=== PATIENT | male | born 1950 | race Caucasian/White ===

== ENCOUNTER 2020-11-23 13:48 | Emergency (ER) | payer MEDICARE ==
[2020-11-23 13:57] VITALS: PULSE 66; RESP 18
--- NOTE | 2020-11-23 14:23 | ED ---
General Adult HPI - General Chief complaint: Extremity Injury, Lower Stated complaint: Leg Pain Time Seen by Provider: 11/23/20 14:05 Source: patient, RN notes reviewed Mode of arrival: ambulatory Limitations: no limitations - History of Present Illness Initial comments: 70-year-old male with a past medical history of hypertension, back pain presents to the emergency room for a chief complaint of left left leg pain. Patient states he had pain in the anterior aspect of the left thigh for the past 3 weeks on and off. States it has now moved to the anterior aspect of the left thigh and into the left groin. Patient denies any injuries. States it is painful to move. Patient states he does have sciatica but this does not feel similar. He denies noticing any swelling or redness. He spoke with a nurse on the phone who recommended he have an ultrasound to rule out blood clot.Patient has no other complaints at this time including shortness of breath, chest pain, abdominal pain, nausea or vomiting, headache, or visual changes. - Related Data Allergies Allergy/AdvReac Type Severity Reaction Status Date / Time No Known Allergies Allergy Verified 11/23/20 13:52 Review of Systems ROS Statement: Those systems with pertinent positive or pertinent negative responses have been documented in the HPI. ROS Other: All systems not noted in ROS Statement are negative. Past Medical History Past Medical History: Hypertension Additional Past Medical History / Comment(s): back pain History of Any Multi-Drug Resistant Organisms: None Reported Past Surgical History: Pacemaker Past Psychological History: Anxiety Smoking Status: Former smoker Past Alcohol Use History: None Reported Past Drug Use History: None Reported General Exam Limitations: no limitations General appearance: alert, in no apparent distress Head exam: Present: atraumatic Eye exam: Present: normal appearance, PERRL, EOMI. Absent: scleral icterus, conjunctival injection, periorbital swelling ENT exam: Present: normal exam, mucous membranes moist Neck exam: Present: normal inspection. Absent: tenderness, meningismus, lymphadenopathy Respiratory exam: Present: normal lung sounds bilaterally Cardiovascular Exam: Present: regular rate, normal rhythm, normal heart sounds. Absent: systolic murmur, diastolic murmur, rubs, gallop, clicks GI/Abdominal exam: Present: soft, normal bowel sounds. Absent: distended, tenderness, guarding, rebound, rigid, hernia (No mass of the left groin) Extremities exam: Present: full ROM (Full range of motion of the left leg.), normal capillary refill (Capillary refill less than 2 seconds, DP pulse 2+.). Absent: tenderness (No tenderness in the left thigh or groin.), joint swelling (No edema noted throughout the left leg.), calf tenderness (No calf tenderness erythema or edema. Negative Homans sign.) Course Vital Signs 11/23/20 11/23/20 13:53 15:35 Temperature 98.4 F 99.1 F Pulse Rate 66 66 Respiratory 18 18 Rate Blood Pressure 123/68 107/85 O2 Sat by Pulse 98 97 Oximetry Medical Decision Making - Medical Decision Making Patient presents for left thigh pain that now extends to the groin area. No abdominal pain. No evidence of hernia. Neurovascular status intact left lower extremity.X-ray shows no fracture. There is mild osteoarthritis of the left knee. Ultrasound shows no evidence of DVT. There is a left groin lymph node measuring 1.7 x 0.8 x 0.7 cm. at this time I recommend patient follows up with h is doctor as he could be having tender lymphadenopathy. He has no fevers or evidence of infection. No dysuria. He will return here for any worsening symptoms. Disposition Clinical Impression: Lymphadenopathy Disposition: HOME SELF-CARE Condition: Good Instructions (If sedation given, give patient instructions): Lymphadenopathy (ED) Additional Instructions: Please follow-up with your doctor to ensure that the lymph node is improving. If you have any worsening symptoms such as fevers or signs of infection return to the emergency room. Is patient prescribed a controlled substance at d/c from ED?: No Referrals: Nat Gaffney DO [Primary Care Provider] - 1-2 days Time of Disposition: 15:52
--- NOTE | 2020-11-23 14:37 | XR ---
EXAMINATION TYPE: XR femur LT DATE OF EXAM: 11/23/2020 COMPARISON: NONE HISTORY: Leg pain TECHNIQUE: 4 views FINDINGS: Hip joint is intact. There is some narrowing of the medial joint space of the knee with spu r formation. I see no fracture nor dislocation. Sacroiliac joint is intact. IMPRESSION: No fracture. Mild osteoarthritis in the left knee.
[2020-11-23 15:36] VITALS: BP 107/85; TEMP 99.1
--- NOTE | 2020-11-23 15:47 | US ---
EXAMINATION TYPE: US venous doppler duplex LE LT DATE OF EXAM: 11/23/2020 3:04 PM COMPARISON: NONE CLINICAL HISTORY: pain. Left thigh and groin pain SIDE PERFORMED: Left TECHNIQUE: The lower extremity deep venous system is examined utilizing real time linear array sonog joi with graded compression, doppler sonography and color-flow sonography. VESSELS IMAGED: Common Femoral Vein Deep Femoral Vein Greater Saphenous Vein * Femoral Vein Popliteal Vein Small Saphenous Vein * Proximal Calf Veins (* superficial vessels) Left Leg: Negative for DVT Let Groin lymph node was seen by US = 1.7 x 0.8 x 0.7cm. IMPRESSION: No evidence of deep vein thrombosis in the left leg.
== END 2020-11-23 16:06 | disposition home or self-care (01) ==
LOC: EC 13:48
DX: R59.1 Generalized enlarged lymph nodes (principal); M17.12 Unilateral primary osteoarthritis, left knee; M79.652 Pain in left thigh; Z87.891 Personal history of nicotine dependence
CPT/HCPCS: 99284

== ENCOUNTER → 2020-12-18 | Outpatient (CLI) | payer MEDICARE ==
--- NOTE | 2020-12-19 07:32 | US ---
EXAMINATION TYPE: US groin LT DATE OF EXAM: 12/18/2020 COMPARISON: NONE CLINICAL HISTORY: R59.0 Localized enlarged lymph nodes. enlarged lymph nodes left groin. Pain left gr oin Scanned left groin, within area of concern, lymph node noted = 2.0 x 0.7 x 0.8cm IMPRESSION: Left inguinal lymph node. Otherwise unremarkable study.
== END | disposition home or self-care (01) ==
LOC: RADUSWWP 16:40
PROVIDERS: ATTEND Family Medicine
DX: R59.0 Localized enlarged lymph nodes (principal)

== ENCOUNTER 2021-01-05 09:19 | Emergency (ER) | payer MEDICARE ==
[2021-01-05 09:25] VITALS: BP 130/76; PULSE 71; RESP 18; TEMP 98.4
--- NOTE | 2021-01-05 10:13 | ED ---
Extremity Problem HPI - General Chief complaint: Extremity Problem,Nontraumatic Stated complaint: L Leg Pain Time Seen by Provider: 01/05/21 09:25 Source: patient Mode of arrival: ambulatory Limitations: no limitations - History of Present Illness Initial comments: Patient is a 70-year-old male presenting to emergency Department with complaints of left thigh pain that has been increasing over the past week. Patient states he's had this pain has been intermittent for the past month. He has seen his PCP for this, he is also evaluated in the ER recently for same issue, he received an ultrasound of the left leg which revealed no evidence of DVT, x-ray of his femur showed no acute process. Patient then followed-up with Dr. Sutton and has an appointment this week for an ultrasound of an enlarged lymph node in his left groin. Patient denies any previous surgeries of his low back, left hip or left leg. He has had arthroscopic surgery of his left knee. Patient states the pain is worse when he standing up straight, has some radiation from his left hip down to the left anterior thigh. He has no back pain right now no saddle paresthesias, no bowel or bladder incontinence. Patient has no fever or chills. He has no further complaints. - Related Data Home Medications Medication Instructions Recorded Confirmed ALPRAZolam [Xanax] 0.125 - 0.25 mg PO TID PRN 01/05/21 01/05/21 Aspirin EC [Ecotrin Low Dose] 81 mg PO DAILY 01/05/21 01/05/21 Atenolol [Tenormin] 25 mg PO BID 01/05/21 01/05/21 Atorvastatin [Lipitor] 20 mg PO HS 01/05/21 01/05/21 Cholecalciferol [Vitamin D3 (25 25 mcg PO DAILY 01/05/21 01/05/21 Mcg = 1000 Iu)] L.acidoph,Paracasei, B.lactis 1 cap PO DAILY 01/05/21 01/05/21 [Probiotic] Multivitamin W/B-Complex 1 tab PO DAILY 01/05/21 01/05/21 Papaya [Papaya Enzyme] 3 tab PO AC-BID PRN 01/05/21 01/05/21 amLODIPine [Norvasc] 5 mg PO HS 01/05/21 01/05/21 Previous Rx's Medication Instructions Recorded predniSONE 50 mg PO DAILY #5 tab 01/05/21 Allergies Allergy/AdvReac Type Severity Reaction Status Date / Time No Known Allergies Allergy Verified 01/05/21 10:25 Review of Systems ROS Statement: Those systems with pertinent positive or pertinent negative responses have been documented in the HPI. ROS Other: All systems not noted in ROS Statement are negative. Past Medical History Past Medical History: Hypertension Additional Past Medical History / Comment(s): back pain, bradycardia History of Any Multi-Drug Resistant Organisms: None Reported Past Surgical History: Pacemaker Past Psychological History: Anxiety Smoking Status: Former smoker Past Alcohol Use History: None Reported Past Drug Use History: None Reported General Exam - General Exam Comments Initial Comments: GENERAL: Patient is well-developed and well-nourished. Patient is nontoxic and in no acute distress. HEAD: Atraumatic, normocephalic. EYES: Pupils equal round and reactive to light, extraocular movements intact, sclera anicteric, conjunctiva are normal. Eyelids were unremarkable. ENT: TMs normal, nares patent, oropharynx clear without exudates. Moist mucous membranes. NECK: Normal range of motion, supple without lymphadenopathy or JVD. LUNGS: Unlabored respirations. Breath sounds clear to auscultation bilaterally and equal. No wheezes rales or rhonchi. HEART: Regular rate and rhythm without murmurs, rubs or gallops. ABDOMEN: Soft, nontender, normoactive bowel sounds. No guarding, no rebound. No masses appreciated. : Deferred MUSCULOSKELETAL: No pain to palpation of the left anterior, lateral hip. He has full left hip range of motion. Strength is 5 out of 5 lower extremity bilaterally. Normal extremities with adequate strength and normal range of motion, no pitting or edema. No clubbing or cyanosis. Patient has no pain with palpation of the lumbar spine, he has full trunk range of motion, normal gait. NEUROLOGICAL: Patient is alert and oriented x 3. Motor and sensory are also intact. Cranial nerves II through XII grossly intact. Symmetrical smile. Normal speech, normal gait. PSYCH: Normal mood, normal affect. SKIN: Warm, Dry, normal turgor, no rashes or lesions noted. Limitations: no limitations Course Vital Signs 01/05/21 09:22 Temperature 98.4 F Pulse Rate 71 Respiratory 18 Rate Blood Pressure 130/76 O2 Sat by Pulse 97 Oximetry Medical Decision Making - Medical Decision Making Patient 70-year-old male here for left upper thigh anterior pain has been in termittent for the past month, worse over the past week. No injuries or falls. No previous surgeries of the back or left hip. He has had recent negative left leg ultrasound, does have a left enlarged lymph node in the groin. Negative femur x-ray during last visit. X-rays today of the lumbar spine, left hip showed no acute process, mild arthritic changes. Patient has been pain-free here in the ER. Discussed with patient this could be coming from a pinched nerve in his back. I did recommend a course of steroids to come down and inflammation. He may also take Tylenol as needed. Patient will also follow up with health care law specialist. Patient is stable for discharge. Patient is in agreement with this plan of care. Return parameters were discussed with the patient and they verbalized understanding. Case discussed with Dr. Velazco. Disposition Clinical Impression: Left thigh pain Disposition: HOME SELF-CARE Condition: Stable Instructions (If sedation given, give patient instructions): Leg Pain (ED) Additional Instructions: Please return to the Emergency Department if symptoms worsen or any other concerns. Take medication as prescribed. May take Tylenol for pain as well. Follow-up with ortho as discussed. Prescriptions: predniSONE 50 mg PO DAILY #5 tab Is patient prescribed a controlled substance at d/c from ED?: No Referrals: Nat Gaffney DO [Primary Care Provider] - 1-2 days
--- NOTE | 2021-01-05 11:15 | XR ---
EXAMINATION TYPE: XR lumbar spine 2 or 3V DATE OF EXAM: 01/05/2021 COMPARISON: None HISTORY: Pain TECHNIQUE: Three-view lumbar spine FINDINGS: There are 5 lumbar-type vertebral bodies. The pedicles are intact. There is narrowing of di sc height L4-5 L5-S1. Remaining disc heights are preserved. Vertebral body heights are preserved. Ali gnment is normal. T12 ribs are rudimentary. IMPRESSION: 1. Degenerative disc changes lower lumbar spine
--- NOTE | 2021-01-05 11:16 | XR ---
EXAMINATION TYPE: XR Hip Complete LT DATE OF EXAM: 01/05/2021 COMPARISON: None HISTORY: Pain TECHNIQUE: 2 view left hip FINDINGS: Femoral head articulates with the acetabulum. Joint spaces preserved. No acute fracture or dislocation is evident. IMPRESSION: 1. Normal 2 view left hip
== END 2021-01-05 10:53 | disposition home or self-care (01) ==
LOC: EC 09:19
DX: M79.652 Pain in left thigh (principal); R59.0 Localized enlarged lymph nodes; M19.90 Unspecified osteoarthritis, unspecified site; I10 Essential (primary) hypertension; F41.9 Anxiety disorder, unspecified; Z79.899 Other long term (current) drug therapy; Z79.82 Long term (current) use of aspirin; Z95.0 Presence of cardiac pacemaker; Z87.891 Personal history of nicotine dependence
CPT/HCPCS: 72100; 73502; 99283

== ENCOUNTER → 2021-01-08 | Outpatient (CLI) | payer MEDICARE ==
--- NOTE | 2021-01-08 16:00 | US ---
EXAMINATION TYPE: US groin LT DATE OF EXAM: 01/08/2021 COMPARISON: US 12/18/20 CLINICAL HISTORY: 70-year-old male R59.1 Lymphadenopathy left side. TECHNIQUE: Targeted ultrasound along the left inguinal region at the site of patient's pain. FINDINGS: Special Librarian notes: Area of pain demonstrates a lymph node = 1.7 x 0.8 x 0.8 cm. Area seen previously on ultrasound measu ring 2.0 x 0.8 x 0.7 cm. IMPRESSION: Painful left inguinal region showing a prominent but nonenlarged 1.7 x 0.8 cm lymph node (stable to s lightly smaller from 12/18/2020 where it measured 2.0 x 0.8 cm).
== END | disposition home or self-care (01) ==
LOC: RADUSWWP 14:34
PROVIDERS: ATTEND Surgery
DX: R93.89 Abnormal findings on diagnostic imaging of other specified body structures (principal); R59.1 Generalized enlarged lymph nodes

== ENCOUNTER → 2021-05-27 | Outpatient (CLI) | payer MEDICARE | END | disposition home or self-care (01) | LOC: RADUSWWP 14:46 | PROVIDERS: ATTEND Surgery | DX: R59.1 Generalized enlarged lymph nodes (principal) ==

== ENCOUNTER 2021-06-18 12:28 | Day surgery (SDC) | payer MEDICARE ==
[2021-06-18 13:19] VITALS: TEMP 98.6
[2021-06-18 13:37] VITALS: PULSE 60
--- NOTE | 2021-06-18 14:10 | US ---
ULTRASOUND GUIDED FNA INGUINAL LYMPH NODE BIOPSY: CLINICAL HISTORY: Left groin lymph node FINDINGS: The procedure was explained to the patient. The risks, complications, benefits and alternatives were discussed and any questions were answered. Informed consent was obtained. Patient was placed supin e on the ultrasound table and prepped and draped in the usual sterile fashion. Utilizing a 25 gauge needle, five passes were made into the left groin lymph node. Patient declined core biopsy Patient was stable throughout the procedure. Pathology is pending. All elements of maximal barrier technique were utilized. IMPRESSION: 1. Successful ultrasound guided FNA groin lymph node biopsy.
[2021-06-18 14:29] VITALS: BP 114/68; RESP 14
== END 2021-06-18 14:20 | disposition home or self-care (01) ==
LOC: RADPROMAIN 12:28
PROVIDERS: ATTEND Surgery
DX: R59.1 Generalized enlarged lymph nodes (principal)
CPT/HCPCS: 10005; 88173; 88305

== ENCOUNTER 2021-07-01 12:38 | Day surgery (SDC) | payer MEDICARE ==
[2021-07-01 13:33] VITALS: BP 114/65; PULSE 60; TEMP 97
--- NOTE | 2021-07-01 14:46 | US ---
ULTRASOUND GUIDED BIOPSY LEFT GROIN LYMPH NODE: CLINICAL HISTORY: Left groin lymph node FINDINGS: Preliminary imaging demonstrated that the lymph nodes in the left groin appear to be almost entirely fat echogenicity. The largest lymph nodes short axis measured only 5 mm. Patient wished to defer biop sy at this time as requested follow-up ultrasound. IMPRESSION: 1. Deferred biopsy of left groin lymph node.
== END 2021-07-01 14:15 | disposition home or self-care (01) ==
LOC: RADPROMAIN 12:38
PROVIDERS: ATTEND Surgery
DX: R59.0 Localized enlarged lymph nodes (principal)
CPT/HCPCS: 76536

== ENCOUNTER → 2022-07-07 | Outpatient (CLI) | payer MEDICARE ==
--- NOTE | 2022-07-07 12:50 | US ---
EXAMINATION TYPE: US groin RT DATE OF EXAM: 07/07/2022 COMPARISON: NONE CLINICAL HISTORY: 71-year-old male R59.1 Lymphadenopathy. Right groin Technique: Orthopedic Specialist notes: Scanned over the patient's right groin. FINDINGS: Normal-appearing, small lymph nodes. No abnormality seen by ultrasound. IMPRESSION: No discrete sonographic abnormality along the right inguinal region.
--- NOTE | 2022-07-07 12:51 | US ---
EXAMINATION TYPE: US groin LT DATE OF EXAM: 07/07/2022 COMPARISON: 11/2020 CLINICAL HISTORY: 71-year-old male R59.1 Lymphadenopathy. Left groin TECHNIQUE: Software Configuration Specialist notes: Scanned over the patient's left groin. FINDINGS: Normal-appearing, small lymph nodes. No abnormality seen by ultrasound. IMPRESSION: No discrete sonographic abnormality along the left inguinal region. Normal, small lymph nodes now pre sent.
== END | disposition home or self-care (01) ==
LOC: RADUSWWP 08:34
PROVIDERS: ATTEND Surgery
DX: R59.1 Generalized enlarged lymph nodes (principal)

== ENCOUNTER → 2023-02-24 | Outpatient (CLI) | payer MEDICARE ==
[2023-02-24 14:22] LABS: African American GFR (CKD) >90 (>60 ml/min/1.73 sqM); Blood Urea Nitrogen 13 mg/dL (9-20); Non-African American GFR(CKD) 88 (>60 ml/min/1.73 sqM)
--- NOTE | 2023-03-01 16:24 | CT ---
EXAMINATION TYPE: CT angio head DATE OF EXAM: 02/24/2023 COMPARISON: 06/02/2026 HISTORY: hx of cerebral aneurysm CT DLP: 1260.5 mGycm CONTRAST: CTA [place] with 3-D reconstruction is performed and without and with IV Contrast, patient i njected with 100 mL of Isovue 370. Contrast CTA of the [place] was performed 3-D reconstruction imaging obtained at a separate workstation. Vertebrobasilar system as well as intracranial portions of the internal carotid arterie s and their major tributaries are patent. Again noted is a stable 3 mm fusiform prominence to the jimi gin of the right posterior cerebral artery. 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 No evidence for additional left fusiform prominence. Please note MRI provides greater sensitivity and specificity. Visualized brain appears grossly unre markable. IMPRESSION: Again noted is a stable 3 mm fusiform prominence to the origin of the right posterior cer ebral artery.
== END | disposition home or self-care (01) ==
LOC: RADCTMAIN 13:25
PROVIDERS: ATTEND Neurological Surgery
DX: I67.1 Cerebral aneurysm, nonruptured (principal)
CPT/HCPCS: 82565; 84520; 70496; 36415; Q9967

== ENCOUNTER 2023-10-01 02:41 | Inpatient (IN) | payer MEDICARE ==
[2023-10-01 03:22] LABS: Basophils % (A) 0 %; Eosinophils # (A) 0.1 k/uL (0-0.7); Eosinophils % (A) 2 %; HCT 45.8 % (39.0-53.0); HGB 15.7 gm/dL (13.0-17.5); Lymphocytes # (A) 1.7 k/uL (1.0-4.8); Lymphocytes % (A) 32 %; MCHC 34.2 g/dL (31.0-37.0); MCV 99.3 fL (80.0-100.0); Mean Platelet Volume 8.4; Monocytes # (A) 0.5 k/uL (0-1.0); Monocytes % (A) 9 %; Neutrophils # (A) 2.9 k/uL (1.3-7.7); Neutrophils % (A) 54 %; Platelet Count 140 k/uL (150-450); RBC 4.62 m/uL (4.30-5.90); RDW 12.6 % (11.5-15.5); WBC 5.4 k/uL (3.8-10.6)
[2023-10-01 03:35] LABS: Partial Thromboplastin Time 29.6 sec (22.0-30.0)
[2023-10-01 03:42] LABS: ALT 36 U/L (4-49); AST 42 U/L (17-59); African American GFR (CKD) >90 (>60 ml/min/1.73 sqM); Albumin 4.4 g/dL (3.5-5.0); Alkaline Phosphatase 57 U/L (38-126); Anion Gap 10 mmol/L; Blood Urea Nitrogen 17 mg/dL (9-20); Calcium 9.5 mg/dL (8.4-10.2); Carbon Dioxide 22 mmol/L (22-30); Chloride 103 mmol/L (98-107); Glucose 109 mg/dL (74-99); Magnesium 2.3 mg/dL (1.6-2.3); Non-African American GFR(CKD) >90 (>60 ml/min/1.73 sqM); Potassium 4.1 mmol/L (3.5-5.1); Sodium 135 mmol/L (137-145); Total Bilirubin 0.8 mg/dL (0.2-1.3); Total Protein 6.6 g/dL (6.3-8.2)
[2023-10-01 03:56] LABS: Appearance,Urine Clear (Clear); Bilirubin,Urine Negative (Negative); Blood,Urine Negative (Negative); Color,Urine Colorless; Glucose,Urine (UA) Negative (Negative); Ketones,Urine Trace (Negative); Leukocyte Esterase,Urine Negative (Negative); Nitrite,Urine Negative (Negative); Protein,Urine Negative (Negative); Specific Gravity,Urine 1.007 (1.001-1.035); Urobilinogen,Urine <2.0 mg/dL (<2.0)
[2023-10-01] MEDS ORDERED: LORazepam 2 MG/ML INJ IV STA (05:16)
--- NOTE | 2023-10-01 05:27 | XR ---
EXAM: XR Chest, 1 View CLINICAL HISTORY: ITS.REASON XR Reason: dysrhythmia TECHNIQUE: Frontal view of the chest. COMPARISON: No relevant prior studies available. FINDINGS: Lungs: Unremarkable. No consolidation. Pleural space: Unremarkable. No pneumothorax. Heart: Unremarkable. No cardiomegaly. Mediastinum: Unremarkable. Bones/joints: Unremarkable. Tubes, lines and devices: Left chest wall implanted cardiac device. IMPRESSION: No acute findings in the chest.
[2023-10-01] MEDS ORDERED: ALPRAZolam 0.25 MG TAB PO STA (05:37)
[2023-10-01] MEDS ORDERED: NITROGLYCERIN SL TABS 0.4 MG TAB SUBLINGUAL PRN (06:38)
[2023-10-01] MEDS: SODIUM CHLORIDE 0.9% 1,000 ML IV SCH ×3 (07:00→23:41)
--- NOTE | 2023-10-01 07:33 | ED ---
Arrhythmia/Palpitations HPI - General Chief Complaint: Arrhythmia/Palpitations Stated Complaint: Arrhythmia Time Seen by Provider: 10/01/23 03:03 Source: patient, EMS Mode of arrival: EMS - History of Present Illness Initial Comments: 's patient is a 72-year-old man with history of pacemaker, who presents evaluation for palpitations. The patient states that she has been feeling like his heart was beating irregularly and at times rapidly. He states that she had eaten some fruitcake prior to the onset of symptoms and thought that perhaps the increased sugar may have contributed. He checked his sugar and found that it was in the 70s which she states is low for him. patient denies having any chest pain, dyspnea, nausea or vomiting. He states that he did have some diaphoresis a couple of days before, and also had been having some palpitations then. MD Complaint: "skipped beats", irregular heart beat -: hour(s) Context: occurred during rest Arrhythmia History: pacemaker Associated Symptoms: denies other symptoms - Related Data Home Medications Medication Instructions Recorded Confirmed ALPRAZolam [Xanax] 0.125 - 0.25 mg PO TID PRN 01/05/21 10/01/23 Atorvastatin [Lipitor] 20 mg PO HS 01/05/21 10/01/23 L.acidoph,Paracasei, B.lactis 2 cap PO DAILY 01/05/21 10/01/23 [Probiotic] Papaya [Papaya Enzyme] 3 tab PO AC-BID PRN 01/05/21 10/01/23 Mv-Min/Folic/K1/Lycopen/Lutein 1 tab PO DAILY 10/01/23 10/01/23 [Centrum Silver Men Tablet] Previous Rx's Medication Instructions Recorded Amiodarone [Cordarone] 400 mg PO TID #180 tab 10/05/23 Mexiletine [Mexitil] 150 mg PO Q8HR #150 cap 10/05/23 Aspirin 81 mg PO HS tab 10/06/23 Hydrocortisone Oint 1 applic TOPICAL BID PRN each 10/06/23 [Hydrocortisone 1% Oint] Spironolactone [Aldactone] 25 mg PO DAILY #90 tab 10/06/23 atenoloL [Tenormin] 100 mg PO DAILY #180 tab 10/06/23 Allergies Allergy/AdvReac Type Severity Reaction Status Date / Time No Known Allergies Allergy Verified 10/01/23 12:31 Review of Systems ROS Statement: Those systems with pertinent positive or pertinent negative responses have been documented in the HPI. ROS Other: All systems not noted in ROS Statement are negative. Constitutional: Denies: fever, chills Respiratory: Denies: cough, dyspnea Cardiovascular: Reports: palpitations. Denies: chest pain, edema, syncope Gastrointestinal: Denies: abdominal pain, nausea, vomiting, diarrhea Genitourinary: Denies: dysuria, hematuria Musculoskeletal: Denies: back pain Skin: Denies: rash Neurological: Denies: headache, weakness Psychiatric: Reports: anxiety Past Medical History Past Medical History: Cancer, Hyperlipidemia, Hypertension Additional Past Medical History / Comment(s): back/neck pain with herniated discs, bradycardia, basal cell carcinoma removed from nose in June 2020, right groin enlarged lymph nodes History of Any Multi-Drug Resistant Organisms: None Reported Past Surgical History: Orthopedic Surgery, Pacemaker Additional Past Surgical History / Comment(s): left knee surgery times 2 Past Anesthesia/Blood Transfusion Reactions: No Reported Reaction Type of Cardiac Device: Permanent Pacemaker Device Placement Date:: 09/21/2019 Past Psychological History: Anxiety Smoking Status: Former smoker Past Alcohol Use History: Rare Past Drug Use History: None Reported - Past Family History Father Family Medical History: Cancer, Coronary Artery Disease (CAD) Additional Family Medical History / Comment(s): lung cancer Mother Family Medical History: Cancer Additional Family Medical History / Comment(s): bladder cancer General Exam General appearance: alert, in no apparent distress Head exam: Present: atraumatic, normocephalic Eye exam: Present: normal appearance. Absent: scleral icterus, conjunctival injection Neck exam: Present: normal inspection Respiratory exam: Present: normal lung sounds bilaterally. Absent: respiratory distress, wheezes, rales, rhonchi, stridor Cardiovascular Exam: Present: irregular rhythm, normal heart sounds. Absent: systolic murmur, diastolic murmur, rubs, gallop GI/Abdominal exam: Present: soft. Absent: distended, tenderness, guarding, r ebound, rigid, mass Extremities exam: Present: normal inspection, normal capillary refill. Absent: pedal edema, calf tenderness Back exam: Present: normal inspection. Absent: CVA tenderness (R), CVA tenderness (L) Neurological exam: Present: alert Psychiatric exam: Present: anxious Skin exam: Present: warm, dry, intact, normal color. Absent: rash Course Vital Signs 10/01/23 10/01/23 10/01/23 02:43 03:00 03:30 Temperature 97.8 F Pulse Rate 90 85 82 Respiratory 19 19 18 Rate Blood Pressure 139/78 139/78 125/94 O2 Sat by Pulse 100 Oximetry 10/01/23 10/01/23 10/01/23 04:00 04:30 05:00 Temperature Pulse Rate 80 84 82 Respiratory 19 17 20 Rate Blood Pressure 112/71 120/76 137/83 O2 Sat by Pulse 99 Oximetry 10/01/23 10/01/23 10/01/23 05:20 05:30 05:40 Temperature Pulse Rate 68 70 71 Respiratory 17 14 12 Rate Blood Pressure 114/83 114/83 123/70 O2 Sat by Pulse 100 99 98 Oximetry 10/01/23 10/01/23 10/01/23 05:45 05:50 06:00 Temperature Pulse Rate 70 81 69 Respiratory 19 29 H 9 L Rate Blood Pressure 129/72 129/72 129/72 O2 Sat by Pulse 99 97 99 Oximetry 10/01/23 10/01/23 10/01/23 06:10 08:00 08:41 Temperature Pulse Rate 61 57 L Respiratory 11 L 18 18 Rate Blood Pressure 121/69 107/64 110/64 O2 Sat by Pulse 99 99 99 Oximetry Medical Decision Making - Medical Decision Making The patient had chest x-ray which I interpreted as negative for acute infiltrate, pneumothorax, congestive heart failure Was pt. sent in by a medical professional or institution (, PA, EMERGENCY SPECIALIST, urgent care, hospital, or fci...) When possible be specific @ -[No] Did you speak to anyone other than the patient for history (EMS, parent, family, police, friend...)? What history was obtained from this source @ -EMS Did you review nursing and triage notes (agree or disagree)? Why? @ -[I reviewed and agree with nursing and triage notes] Were old charts reviewed (outside hosp., previous admission, EMS record, old EKG, old radiological studies, urgent care reports/EKG's, fci records)? Report findings @ -[No old charts were reviewed] Differential Diagnosis (chest pain, altered mental status, abdominal pain women, abdominal pain men, vaginal bleeding, weakness, fever, dyspnea, syncope, headache, dizziness, GI bleed, back pain, seizure, CVA, palpatations, mental health, musculoskeletal)? @ -[Differential Palpitations Ventricular arrhythmias, atrial arrhythmias, myocardial infarction, anemia, thyrotoxicosis, electrolyte imbalance, hypokalemia, pulmonary embolism, pulmonary disease, drugs, alcohol, anxiety, stress.... This is not meant to be an all-inclusive list. EKG interpreted by me (3pts min.). @ -[I interpreted As above] X-rays interpreted by me (1pt min.). @ -[I interpreted as above CT interpreted by me (1pt min.). @ -[None done] U/S interpreted by me (1pt. min.). @ -[None done] What testing was considered but not performed or refused? (CT, X-rays, U/S, labs)? Why? @ -[None] What meds were considered but not given or refused? Why? @ -[None] Did you discuss the management of the patient with other professionals (professionals i.e. , PA, EMERGENCY SPECIALIST, lab, RT, psych nurse, social security specialist, manager of data, teacher, boating safety officer, corrections caseworker)? Give summary @ -[Case discussed with admitting physician Was smoking cessation discussed for >3mins.? @ -[No] Was critical care preformed (if so, how long)? @ -[No] Were there social determinants of health that impacted care today? How? (Homelessness, low income, unemployed, alcoholism, drug addiction, transportat ion, low edu. Level, literacy, decrease access to med. care, detention, rehab)? @ -[No] Was there de-escalation of care discussed even if they declined (Discuss DNR or withdrawal of care, Hospice)? DNR status @ -[No] What co-morbidities impacted this encounter? (DM, HTN, Smoking, COPD, CAD, Cancer, CVA, ARF, Chemo, Hep., AIDS, mental health diagnosis, sleep apnea, morbid obesity)? @ -[None] Was patient admitted / discharged? Hospital course, mention meds given and route, prescriptions, significant lab abnormalities, going to OR and other pertinent info. @ -[Patient is 72 -year-old man presenting with palpitations. EMS did record strip of ventricular tachycardia. Given this and the patient's recent symptoms, will admit to have cardiology consultation. Undiagnosed new problem with uncertain prognosis? @ -[No] Drug Therapy requiring intensive monitoring for toxicity (Heparin, Nitro, Insulin, Cardizem)? @ -[No] Were any procedures done? @ -[No] Diagnosis/symptom? @ -Acute palpitations Possible ventricular arrhythmia Acute, or Chronic, or Acute on Chronic? @ -[Acute Uncomplicated (without systemic symptoms) or Complicated (systemic symptoms)? @ -[Uncomplicated Side effects of treatment? @ -[No] Exacerbation, Progression, or Severe Exacerbation? @ -[No] Poses a threat to life or bodily function? How? (Chest pain, [place], NH, pneumonia, PE, COPD, DKA, ARF, appy, cholecystitis, CVA, Diverticulitis, Homicidal, Suicidal, threat to staff... and all critical care pts) @ -[Yes, ventricular arrhythmias may deteriorate to V. fib/cardiac arrest - Lab Data Result diagrams: 10/04/23 04:06 10/04/23 04:06 Lab Results 10/01/23 10/01/23 10/01/23 Range/Units 03:12 03:12 03:12 WBC 5.4 (3.8-10.6) k/uL RBC 4.62 (4.30-5.90) m/uL Hgb 15.7 (13.0-17.5) gm/dL Hct 45.8 (39.0-53.0) % MCV 99.3 (80.0-100.0) fL MCH 34.0 (25.0-35.0) pg MCHC 34.2 (31.0-37.0) g/dL RDW 12.6 (11.5-15.5) % Plt Count 140 L (150-450) k/uL MPV 8.4 Neutrophils % 54 % Lymphocytes % 32 % Monocytes % 9 % Eosinophils % 2 % Basophils % 0 % Neutrophils # 2.9 (1.3-7.7) k/uL Lymphocytes # 1.7 (1.0-4.8) k/uL Monocytes # 0.5 (0-1.0) k/uL Eosinophils # 0.1 (0-0.7) k/uL Basophils # 0.0 (0-0.2) k/uL PT 11.0 (10.0-12.5) sec INR 1.0 (<1.2) APTT 29.6 (22.0-30.0) sec Sodium 135 L (137-145) mmol/L Potassium 4.1 (3.5-5.1) mmol/L Chloride 103 (98-107) mmol/L Carbon Dioxide 22 (22-30) mmol/L Anion Gap 10 mmol/L BUN 17 (9-20) mg/dL Creatinine 0.79 (0.66-1.25) mg/dL Est GFR (CKD-EPI)AfAm >90 (>60 ml/min/1.73 sqM) Est GFR (CKD-EPI)NonAf >90 (>60 ml/min/1.73 sqM) Glucose 109 H (74-99) mg/dL POC Glucose (mg/dL) (70-110) mg/dL POC Glu Dope Heater ID Calcium 9.5 (8.4-10.2) mg/dL Magnesium 2.3 (1.6-2.3) mg/dL Total Bilirubin 0.8 (0.2-1.3) mg/dL AST 42 (17-59) U/L ALT 36 (4-49) U/L Alkaline Phosphatase 57 (38-126) U/L Troponin I (0.000-0.034) ng/mL Total Protein 6.6 (6.3-8.2) g/dL Albumin 4.4 (3.5-5.0) g/dL Triglycerides (0.00-149.00) mg/dL Cholesterol (0.00-200.00) mg/dL LDL Cholesterol, Calc (0.0-131.0) mg/dL VLDL Cholesterol, Calc (5.00-40.00) mg/dL HDL Cholesterol (40.00-60.00) mg/dL Cholesterol/HDL Ratio Ratio TSH 1.950 (0.465-4.680) mIU/L Urine Color Urine Appearance (Clear) Urine pH (5.0-8.0) Ur Specific [place] (1.001-1.035) Urine Protein (Negative) Urine Glucose (UA) (Negative) Urine Ketones (Negative) Urine Blood (Negative) Urine Nitrite (Negative) Urine Bilirubin (Negative) Urine Urobilinogen (<2.0) mg/dL Ur Leukocyte Esterase (Negative) 10/01/23 10/01/23 10/01/23 Range/Units 03:12 03:12 03:12 WBC (3.8-10.6) k/uL RBC (4.30-5.90) m/uL Hgb (13.0-17.5) gm/dL Hct (39.0-53.0) % MCV (80.0-100.0) fL MCH (25.0-35.0) pg MCHC (31.0-37.0) g/dL RDW (11.5-15.5) % Plt Count (150-450) k/uL MPV Neutrophils % % Lymphocytes % % Monocytes % % Eosinophils % % Basophils % % Neutrophils # (1.3-7.7) k/uL Lymphocytes # (1.0-4.8) k/uL Monocytes # (0-1.0) k/uL Eosinophils # (0-0.7) k/uL Basophils # (0-0.2) k/uL PT (10.0-12.5) sec INR (<1.2) APTT (22.0-30.0) sec Sodium (137-145) mmol/L Potassium (3.5-5.1) mmol/L Chloride (98-107) mmol/L Carbon Dioxide (22-30) mmol/L Anion Gap mmol/L BUN (9-20) mg/dL Creatinine (0.66-1.25) mg/dL Est GFR (CKD-EPI)AfAm (>60 ml/min/1.73 sqM) Est GFR (CKD-EPI)NonAf (>60 ml/min/1.73 sqM) Glucose (74-99) mg/dL POC Glucose (mg/dL) (70-110) mg/dL POC Glu Dope Heater ID Calcium (8.4-10.2) mg/dL Magnesium (1.6-2.3) mg/dL Total Bilirubin (0.2-1.3) mg/dL AST (17-59) U/L ALT (4-49) U/L Alkaline Phosphatase (38-126) U/L Troponin I <0.012 (0.000-0.034) ng/mL Total Protein (6.3-8.2) g/dL Albumin (3.5-5.0) g/dL Triglycerides 144.00 (0.00-149.00) mg/dL Cholesterol 136.00 (0.00-200.00) mg/dL LDL Cholesterol, Calc 42.3 (0.0-131.0) mg/dL VLDL Cholesterol, Calc 28.80 (5.00-40.00) mg/dL HDL Cholesterol 64.90 H (40.00-60.00) mg/dL Cholesterol/HDL Ratio 2.10 Ratio TSH (0.465-4.680) mIU/L Urine Color Colorless Urine Appearance Clear (Clear) Urine pH 7.0 (5.0-8.0) Ur Specific [place] 1.007 (1.001-1.035) Urine Protein Negative (Negative) Urine Glucose (UA) Negative (Negative) Urine Ketones Trace H (Negative) Urine Blood Negative (Negative) Urine Nitrite Negative (Negative) Urine Bilirubin Negative (Negative) Urine Urobilinogen <2.0 (<2.0) mg/dL Ur Leukocyte Esterase Negative (Negative) 10/01/23 10/01/23 10/01/23 Range/Units 07:25 12:09 22:35 WBC (3.8-10.6) k/uL RBC (4.30-5.90) m/uL Hgb (13.0-17.5) gm/dL Hct (39.0-53.0) % MCV (80.0-100.0) fL MCH (25.0-35.0) pg MCHC (31.0-37.0) g/dL RDW (11.5-15.5) % Plt Count (150-450) k/uL MPV Neutrophils % % Lymphocytes % % Monocytes % % Eosinophils % % Basophils % % Neutrophils # (1.3-7.7) k/uL Lymphocytes # (1.0-4.8) k/uL Monocytes # (0-1.0) k/uL Eosinophils # (0-0.7) k/uL Basophils # (0-0.2) k/uL PT (10.0-12.5) sec INR (<1.2) APTT (22.0-30.0) sec Sodium (137-145) mmol/L Potassium (3.5-5.1) mmol/L Chloride (98-107) mmol/L Carbon Dioxide (22-30) mmol/L Anion Gap mmol/L BUN (9-20) mg/dL Creatinine (0.66-1.25) mg/dL Est GFR (CKD-EPI)AfAm (>60 ml/min/1.73 sqM) Est GFR (CKD-EPI)NonAf (>60 ml/min/1.73 sqM) Glucose (74-99) mg/dL POC Glucose (mg/dL) 140 H (70-110) mg/dL POC Glu Dope Heater ID [place] Calcium (8.4-10.2) mg/dL Magnesium (1.6-2.3) mg/dL Total Bilirubin (0.2-1.3) mg/dL AST (17-59) U/L ALT (4-49) U/L Alkaline Phosphatase (38-126) U/L Troponin I 0.020 0.017 (0.000-0.034) ng/mL Total Protein (6.3-8.2) g/dL Albumin (3.5-5.0) g/dL Triglycerides (0.00-149.00) mg/dL Cholesterol (0.00-200.00) mg/dL LDL Cholesterol, Calc (0.0-131.0) mg/dL VLDL Cholesterol, Calc (5.00-40.00) mg/dL HDL Cholesterol (40.00-60.00) mg/dL Cholesterol/HDL Ratio Ratio TSH (0.465-4.680) mIU/L Urine Color Urine Appearance (Clear) Urine pH (5.0-8.0) Ur Specific [place] (1.001-1.035) Urine Protein (Negative) Urine Glucose (UA) (Negative) Urine Ketones (Negative) Urine Blood (Negative) Urine Nitrite (Negative) Urine Bilirubin (Negative) Urine Urobilinogen (<2.0) mg/dL Ur Leukocyte Esterase (Negative) - EKG Data -: EKG Interpreted by Me EKG shows normal: intervals (QRS duration 182 ms, prolonged consistent with paced rhythm. QTC 450 ms) Rate: normal (He 6 bpm) Interpretation: other (The rhythm is paced) Disposition Clinical Impression: Ventricular tachycardia Disposition: ADMITTED IP TO THIS [facility] Is patient prescribed a controlled substance at d/c from ED?: No
--- NOTE | 2023-10-01 11:21 | CONS ---
CONSULTATION CHIEF COMPLAINT: Palpitations. 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 He describes it as intermittent episodes of irregular heart rhythm, primarily in the epigastric area. He was concerned about it, came to the hospital and had been admitted for the same. He does not have chest pain, difficulty in breathing, dizziness, syncope. There is no history of leg edema, PND or orthopnea. There is no prior history of coronary artery disease or congestive heart failure. Pacemaker apparently had been checked within the last 2 months and was functioning normally. He has had these issues with palpitations and was being worked up by his physician within the last 1 year. He had a stress test and went onto have cardiac catheterization and tells me that he did not have significant CAD. PAST MEDICAL HISTORY: Significant for sick sinus syndrome status post permanent pacemaker, hypertension and dyslipidemia. MEDICATIONS: Include, 1. Aspirin. 2. Xanax. 3. Lipitor. 4. Vitamin D. 5. Probiotic. 6. Norvasc 5 daily. 7. Tenormin 25 b.i.d. 8. Vitamin D. ALLERGIES: There are no known drug allergies. FAMILY HISTORY: Negative for premature coronary artery disease. SOCIAL HISTORY: Negative for current smoking, EtOH abuse or drug abuse. REVIEW OF SYSTEMS: HEENT: Unremarkable. CARDIAC: As described above. RESPIRATORY: As described above. GI: Negative. GENITOURINARY: Negative. ALLERGY/IMMUNOLOGY: Negative. SKIN: Negative. MUSCULOSKELETAL: Significant for arthritis. PSYCHOSOCIAL: Negative. DERM: Negative. CONSTITUTIONAL: Negative. ONCOLOGICAL: Negative. MENTAL HEALTH ASSOCIATE: Negative. Rest of the system review is not relevant. PHYSICAL EXAMINATION: VITAL SIGNS: Afebrile. Vital signs are stable. CHEST: Reveals good air entry bilaterally. HEART: Reveals first and second heart sounds. Systolic murmur at the left lower sternal border. ABDOMEN: Soft. EXTREMITIES: Exam of extremities did not reveal any edema. Peripheral pulses are felt. LABORATORY DATA: Labs show a hemoglobin of 15.7, platelet count is 140, potassium is 4.1, creatinine is 0.7. Troponin x2 is negative. TSH is normal at 1.9. ASSESSMENT: 1. Sick sinus syndrome, status post permanent pacemaker. 2. Hypertension. 3. Palpitations. PLAN: I will obtain a 2D echo to document his LV function. We will check the pacemaker today. We will try and obtain records from his batch plant supervisor and we will watch him on telemetry to rule out cardiac arrhythmia. BARBARA / MARELY: [id number] /
[2023-10-01] MEDS ORDERED: ASPIRIN 81 MG PO SCH (11:30)
[2023-10-01] MEDS ORDERED: atenoloL 50 MG TAB PO SCH (12:30)
[2023-10-01] MEDS: ALPRAZolam 0.25 MG TAB PO PRN ×2 (12:59→20:14)
--- NOTE | 2023-10-01 13:30 | P.HPIM ---
History of Present Illness H&P Date: 10/01/23 Chief Complaint: Palpitation This is a pleasant 72-year-old patient who follows with Yeimy Deras. 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 Patient has a pacemaker for sick sinus syndrome. Around 2 AM patient felt palpitations as if his heart is was stopped. Took his pulse felt to be erratic. Did not feel right decided to come to the ER. His Accu-Chek was 70. Weight is relatively low for him. This morning pacemaker check was carried out. Seen by cardiology. Told to increase activity. Currently no chest pain or dizziness. Patient's had a previous cardiac catheterization - showed only mild disease Review of systems: GEN.: None EYES: None HEENT: None NECK: None RESPIRATORY: None CARDIOVASCULAR: As above GASTROINTESTINAL: None GENITOURINARY: None MUSCULOSKELETAL: None LYMPHATICS: None HEMATOLOGICAL: None PSYCHIATRY: None NEUROLOGICAL: None Past medical history to include: Hypertension, hyperlipidemia, I did discuss the back and neck, basal cell carcinoma, sick sinus syndrome, being worked up for right groin enlarged lymph nodes Social history: Patient lives with his Ajit. 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 Physical examination: VITAL SIGNS: 97.4, 63, 17, 132/79, 97% room air GENERAL: BMI 21.5, declining bit of a comfortable. EYES: Pupils equal. Conjunctiva normal. HEENT: External appearance of nose and ears normal, oral cavity grossly normal. NECK: JVD not raised; masses not palpable. HEART: First and second heart sounds are normal; no edema. LUNGS: Respiratory rate normal; clear to auscultation. ABDOMEN: Soft, nontender, liver spleen not palpable, no masses palpable. PSYCH: Alert and oriented x3; mood and affect normal. MUSCULOSKELETAL:No Clubbing/cyanosis;muscles-grossly intact NEUROLOGICAL: Cranial nerves grossly intact; no facial asymmetry, power and sensation grossly intact. LYMPHATICS: No lymph nodes palpable in the axilla and neck INVESTIGATIONS, reviewed in the clinical context: White count 5.4 hemoglobin 15.7 platelets 140 sodium 135 potassium 4.1 BUN 17 creatinine 0.79 Troponin I less than 0.012, 0.020, 0.017 EKG tracing personally reviewed by me-ventricular paced rhythm Chest x-ray film personally reviewed by me-hyperinflation Assessment and plan: -Episode of palpitation irregular heartbeat in a patient with known pacemaker. Has a pacemaker for sick sinus syndrome Pacemaker check. Troponin is negative. Follow with cardiology. -Essential hypertension Tenormin 50 mg in the morning 25 mg evening -Hyperlipidemia Lipitor 20 mg daily at bedtime -Anxiety not otherwise specified Xanax when necessary Past Medical History Past Medical History: Cancer, Hyperlipidemia, Hypertension Additional Past Medical History / Comment(s): back/neck pain with herniated discs, bradycardia, basal cell carcinoma removed from nose in June 2020, right groin enlarged lymph nodes History of Any Multi-Drug Resistant Organisms: None Reported Past Surgical History: Orthopedic Surgery, Pacemaker Additional Past Surgical History / Comment(s): left knee surgery times 2 Past Anesthesia/Blood Transfusion Reactions: No Reported Reaction Type of Cardiac Device: Permanent Pacemaker Device Placement Date:: 09/21/2019 Past Psychological History: Anxiety Smoking Status: Former smoker Past Alcohol Use History: Rare Additional Past Alcohol Use History / Comment(s): quit smoking over 20 years ago Past Drug Use History: None Reported - Past Family History Father Family Medical History: Cancer, Coronary Artery Disease (CAD) Additional Family Medical History / Comment(s): lung cancer Mother Family Medical History: Cancer Additional Family Medical History / Comment(s): bladder cancer Medications and Allergies Home Medications Medication Instructions Recorded Confirmed Type ALPRAZolam [Xanax] 0.125 - 0.25 mg PO TID PRN 01/05/21 10/01/23 History Aspirin EC [Ecotrin Low Dose] 81 mg PO DAILY PRN 01/05/21 10/01/23 History Atorvastatin [Lipitor] 20 mg PO HS 01/05/21 10/01/23 History L.acidoph,Paracasei, B.lactis 2 cap PO DAILY 01/05/21 10/01/23 History [Probiotic] Papaya [Papaya Enzyme] 3 tab PO AC-BID PRN 01/05/21 10/01/23 History atenoloL [Tenormin] 50 mg PO AC-BRKFST 01/05/21 10/01/23 History Mv-Min/Folic/K1/Lycopen/Lutein 1 tab PO DAILY 10/01/23 10/01/23 History [Centrum Silver Men Tablet] atenoloL [Tenormin] 25 mg PO AC-SUPPER 10/01/23 10/01/23 History Allergies Allergy/AdvReac Type Severity Reaction Status Date / Time No Known Allergies Allergy Verified 10/01/23 12:31 Physical Exam Vitals: Vital Signs Temp Pulse Pulse Resp BP BP Pulse Ox 10/01/23 11:20 61 17 128/77 99 10/01/23 09:26 97.4 F L 63 17 132/79 97 10/01/23 08:41 57 L 18 110/64 99 10/01/23 08:00 61 18 107/64 99 10/01/23 06:10 11 L 121/69 99 10/01/23 06:00 69 9 L 129/72 99 10/01/23 05:50 81 29 H 129/72 97 10/01/23 05:45 70 19 129/72 99 10/01/23 05:40 71 12 123/70 98 10/01/23 05:30 70 14 114/83 99 10/01/23 05:20 68 17 114/83 100 10/01/23 05:00 82 20 137/83 10/01/23 04:30 84 17 120/76 99 10/01/23 04:00 80 19 112/71 10/01/23 03:30 82 18 125/94 10/01/23 03:00 85 19 139/78 10/01/23 02:43 97.8 F 90 19 139/78 100 Intake and Output 09/30/23 10/01/23 10/01/23 22:59 06:59 14:59 Other: Weight 68.039 kg 68.039 kg Results CBC & Chem 7: 10/01/23 03:12 10/01/23 03:12 Labs: Abnormal Lab Results - Last 24 Hours (Table) 10/01/23 10/01/23 10/01/23 Range/Units 03:12 03:12 03:12 Plt Count 140 L (150-450) k/uL Sodium 135 L (137-145) mmol/L Glucose 109 H (74-99) mg/dL Urine Ketones Trace H (Negative) Thrombosis Risk Factor Assmnt - Choose All That Apply Each Risk Factor Represents 2 Points: Age 61-74 years Thrombosis Risk Factor Assessment Total Risk Factor Score: 2 Thrombosis Risk Factor Assessment Level: Low Risk
[2023-10-01] MEDS ORDERED: AMIODARONE 360 MG in DEXTROSE 5% IN WATER 200 ML IV ONE ×2 (18:01)
[2023-10-01] MEDS ORDERED: DEXTROSE 5% IN WATER 100 ML with AMIODARONE 150 MG IV ONE (18:01)
--- NOTE | 2023-10-01 18:23 | CA ---
Transthoracic Echo Report Name: Monty Weller Age: 72 Gender: M : 1950 Exam Date: 10/01/2023 10:39 Exam Location: [place] [facility] Ht (in): 70 Wt (lb): 150 Ordering Physician: Marc Melchor MD ([id number]) Attending/Referring Phys: Ruiz TAVARES Driller And Reamer Christal Sloan RDCS Procedure CPT: Indications: arrhythmia Cardiac Hx: pacemaker Technical Quality: Good Contrast 1: Total Dose (mL): Contrast 2: Total Dose (mL): MEASUREMENTS (Male / Female) Normal Values 2D ECHO LV Diastolic Diameter PLAX 4.4 cm 4.2 - 5.9 / 3.9 - 5.3 cm LV Systolic Diameter PLAX 2.9 cm IVS Diastolic Thickness 1.0 cm 0.6 - 1.0 / 0.6 - 0.9 cm LVPW Diastolic Thickness 1.0 cm 0.6 - 1.0 / 0.6 - 0.9 cm LV Relative Wall Thickness 0.5 RV Internal Dim ED PLAX 3.3 cm LA Systolic Diameter LX 3.8 cm 3.0 - 4.0 / 2.7 - 3.8 cm LV Diastolic Volume MOD 4C 80.8 cm??? LV Systolic Volume MOD 4C 36.5 cm??? LV Ejection Fraction MOD 4C 54.9 % LV Cardiac Index MOD 4C 1333.9 cm???/min???m??? LV Diastolic Length 4C 8.8 cm LV Systolic Length 4C 7.5 cm LV Diastolic Volume MOD 2C 105.0 cm??? LV Systolic Volume MOD 2C 31.9 cm??? LV Ejection Fraction MOD 2C 69.6 % LV Cardiac Index MOD 2C 2196.1 cm???/min???m??? LV Diastolic Length 2C 8.7 cm LV Systolic Length 2C 6.8 cm LA Volume 47.8 cm??? 18 - 58 / 22 - 52 cm??? LA Volume Index 26.1 cm???/m??? 16 - 28 cm???/m??? M-MODE Aortic Root Diameter MM 3.6 cm MV E Point Septal Separation 0.6 cm AV Cusp Separation MM 2.3 cm DOPPLER AV Peak Velocity 121.8 cm/s AV Peak Gradient 5.9 mmHg AI Peak Velocity 331.4 cm/s AI Peak Gradient 43.9 mmHg AI Pressure Half Time 832.1 ms MV E' Velocity 6.8 cm/s TR Peak Velocity 216.5 cm/s TR Peak Gradient 18.8 mmHg Right Ventricular Systolic Press 23.5 mmHg FINDINGS Left Ventricle Left ventricular ejection fraction is estimated at 60-65 %. Left ventricular cavity size normal. Left ventricular wall thickness normal. Right Ventricle Normal right ventricular size. Right ventricular systolic pressure within normal limits. Right Atrium Normal right atrial size. Left Atrium Normal left atrial size. Mitral Valve Structurally normal mitral valve. No mitral stenosis, regurgitation or prolapse. Aortic Valve Trileaflet aortic valve. Mild aortic regurgitation. Tricuspid Valve Structurally normal tricuspid valve. Trace to mild tricuspid regurgitation. Pulmonic Valve Structurally normal pulmonic valve. No pulmonic regurgitation. Pericardium No pericardial effusion. Aorta Normal size aortic root and proximal ascending aorta. CONCLUSIONS Normal LV systolic function Mild aortic regurgitation Pacemaker leads are noted in the right side of the heart Previewed by: Dr. Marc Melchor MD (Electronically Signed) Final Date: 01 October 2023 18:22
[2023-10-01] MEDS: ATORVASTATIN 20 MG TAB PO SCH (20:14)
[2023-10-01] MEDS: ASPIRIN 81 MG PO SCH (20:14)
[2023-10-01] MEDS ORDERED: amLODIPine 5 MG TAB PO SCH (21:00)
[2023-10-01] MEDS ORDERED: atenoloL 25 MG TAB PO SCH (21:00)
[2023-10-01 22:37] LABS: Glucose,Whole Blood 140 mg/dL (70-110)
[2023-10-01] MEDS ORDERED: LIDOCAINE 2% SYG (PF) 100 MG/5 ML IV ONE (22:51)
[2023-10-01 23:05] LABS: Glucose,Whole Blood 119 mg/dL (70-110)
[2023-10-01] MEDS: LIDOCAINE-D5W PMX 2G/250ML 2,000 MG in DEXTROSE/WATER 1 250ML.BAG IV SCH (23:06)
[2023-10-02] MEDS ORDERED: AMIODARONE 450 MG in DEXTROSE 5% IN WATER 250 ML IV SCH ×2 (00:15)
[2023-10-02] MEDS ORDERED: AMIODARONE 200 MG TAB PO SCH (09:00)
[2023-10-02] MEDS ORDERED: ASPIRIN 325 MG TAB PO SCH (09:00)
[2023-10-02] MEDS: atenoloL 50 MG TAB PO SCH (09:07)
[2023-10-02] MEDS: ALPRAZolam 0.25 MG TAB PO PRN ×2 (09:07→18:23)
[2023-10-02] MEDS: LACTOBACILLUS ACIDOPHILUS/PECT 1 EACH CAPSULE PO SCH (09:08)
[2023-10-02] MEDS: MULTIVITAMINS, THERA 1 EACH TAB PO SCH (09:08)
--- NOTE | 2023-10-02 12:04 | CONS ---
CONSULTATION HISTORY OF PRESENT ILLNESS: The patient is a 72-year-old gentleman with history of high-grade AV block, status post permanent pacemaker, who presented to hospital with symptoms of intermittent episodes of palpitations and changes in his heart rate. Primarily, he noted bradycardia at home. I saw him yesterday and he had been doing good. The rhythm strip from the EMS showed a run of nonsustained VT and his pacemaker was evaluated. I did not have the information with me, but the nurse told me that they noticed an atrial tachycardia. We resumed his medications and the patient was doing well up until 8 in the afternoon when he had a run of nonsustained VT and we subsequently had a sustained VT and VFib. I started him on amiodarone, but he continued to have episodes of, what appears like, ventricular tachycardia, so I started him on lidocaine and transferred him to ICU and has been doing well since being started on lidocaine. He did not have any further episodes of VT. I will switch him to oral amiodarone. Continue the IV lidocaine. Increase the dose of his beta bill. I reviewed his echo. He has normal LV systolic function. His troponins are negative. He tells me that he had a cardiac catheterization within the last 6 months that did not reveal any CAD. I am going to get hold of those records. I spoke to Dr. Cuellar dear Dr. Cuellar, the respiratory care specialist, who may come and see him later this afternoon for further management of the ventricular tachycardia. The exact etiology for the VT is unclear. The patient does not have significant LV systolic dysfunction. Did not have any electrolyte abnormalities, did not have ischemia. Troponins are negative, and recent cardiac cath was normal. It is unclear if there is an R-on-T, there is an R-on-T phenomenon. We will wait for EBs input. PHYSICAL EXAMINATION: GENERAL: This morning, he is comfortable at rest. VITAL SIGNS: Stable. NECK: There is no jugular venous distention. CHEST: Reveals good air entry bilaterally. HEART: Reveals first and second heart sounds. No gallop. No murmur. No rub. ABDOMEN: Soft, nontender. EXTREMITIES: Did not reveal any edema. Peripheral pulses are felt. ASSESSMENT: 1. Ventricular tachycardia. 2. High-grade AV block, status post permanent pacemaker. PLAN: I will continue the patient on IV lidocaine. Start him on oral amiodarone. Continue the Tenormin. Await ENT input and we will get records from his primary map clerk. MMODL / IJN: [id number] /
[2023-10-02 12:30] LABS: LDL Cholesterol,Calculated 42.3 mg/dL (0.0-131.0)
[2023-10-02] MEDS: LIDOCAINE-D5W PMX 2G/250ML 2,000 MG in DEXTROSE/WATER 1 250ML.BAG IV SCH (13:03)
[2023-10-02] MEDS: SODIUM CHLORIDE 0.9% 1,000 ML IV SCH (13:04)
--- NOTE | 2023-10-02 14:49 | P.EPCON ---
Electrophysiology Consult - EP Consult Electrophysiology Consult: This is Dr. Cuellar dictating a consult on this patient The patient was interviewed and examined IMPRESSION / ASSESSMENT: Recurrent episodes of PMVT/ventricular fibrillation Sustained and symptomatic History of complete heart block status post dual-chamber pacemaker, [employer] [place] [address] Ferreira Baseline 12-lead EKG shows AV sequential pacing with RV pacing Past history of possible lymphadenopathy in the right groin status post aspiration biopsy which was inconclusive Currently on amiodarone and lidocaine 2-D echo shows preserved LV and RV size and function Chest x-ray shows 2 pacemaker wires 1 the atrium and the other in the right ventricle inflow No evidence for lymphadenopathy on chest x-ray/ mediastinum appears normal. No clinical evidence for lymphadenopathy on examination His brother the age of 68 years of age had sudden . He was in [place]. Cause of unknown Patient follows with Dr. Bryant, and a recent echo and coronary angiogram earlier this year PLAN: In view of his history of complete heart block and now PMVT/atrial fibrillation, he should be evaluated for cause of this combination Repeat coronary angiography is planned for tomorrow to look for any significant/ new coronary artery disease Increase oral amiodarone to 400 mg 3 times a day for one week in the reduced to 400 mg twice a day for 2 weeks, then 400 mg daily Will switch to mexiletine tomorrow after coronary angiography External Vest Continue with higher doses of beta blockers Left upper extremity venogram to plan future upgrade Advanced imaging of the heart to evaluate for chronic myocarditis/possible sarcoidosis CRP and angiotensin-converting enzyme level sent today Upgrade to a dual-chamber ICD after advanced imaging/if possible conduction system pacing since he is complete heart block Detailed discussion the patient and he is agreeable with the plan Continue high dose beta blockers, add spironolactone. Patient's potassium and magnesium are normal If his cardiac MRI does not show any evidence for chronic myocarditis and does not show any evidence for lymphadenopathy in the thorax, then one should consider genetic causes, since his brother also had sudden from an unclear cause HPI Patient presented to the hospital with palpitations nausea He denies any chest discomfort 6 months back he had an episode of loss of consciousness and he thought he had been electrocuted Denies any chest discomfort undue shortness of breath In 2019 for at least 2 weeks prior to his permanent pacemaker implant he was experiencing presyncopal spells He went to his medical doctor's office who sent him to the 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 EXAMINATION: Blood pressure 121/78 mmHg pulse rate in the 60s and 70s, normal respirations No JVD No cervical lymphadenopathy No axillary lymphadenopathy No groin lymphadenopathy Normal heart sounds no murmurs Clear lungs no rhonchi no crackles No lower extremity edema REVIEW OF LABS, ECG & MEDICAL DATA White count normal 5.4 thousand, hemoglobin 15.7 Coagulation parameters within normal limits Electrolytes normal Magnesium normal Potassium normal
[2023-10-02] MEDS: SPIRONOLACTONE 25 MG TAB PO SCH (14:59)
--- NOTE | 2023-10-02 16:28 | P.PN ---
Progress Note - Text Progress Note Date: 10/02/23 Chief Complaint: Palpitation This is a pleasant 72-year-old patient who follows with Yeimy Deras. [facility] . Patient has a pacemaker for sick sinus syndrome. Around 2 AM patient felt palpitations as if his heart is was stopped. Took his pulse felt to be erratic. Did not feel right decided to come to the ER. His Accu-Chek was 70. Weight is relatively low for him. This morning pacemaker check was carried out. Seen by cardiology. Told to increase activity. Currently no chest pain or dizziness. Patient's had a previous cardiac catheterization - showed only mild disease October 02: Patient overnight had episodes of ventricular fibrillation. Initially given IV amiodarone. No help. Added IV lidocaine. Cutback in sinus rhythm. Seen by EP Dr. Joshua Arvizu. For cardiac catheterization tomorrow. Active Medications Alprazolam (Alprazolam 0.25 Mg Tab) 0.25 mg PO TID PRN PRN Reason: Anxiety Last Admin: 10/02/23 09:07 Dose: 0.25 mg Amiodarone HCl (Amiodarone 200 Mg Tab) 400 mg PO TID [facility] Aspirin (Aspirin 81 Mg) 81 mg PO HS [facility] Last Admin: 10/01/23 20:14 Dose: 81 mg Atenolol (Atenolol 50 Mg Tab) 100 mg PO DAILY [facility] Last Admin: 10/02/23 09:07 Dose: 100 mg Atorvastatin Calcium (Atorvastatin 20 Mg Tab) 20 mg PO HS [facility] Last Admin: 10/01/23 20:14 Dose: 20 mg Sodium Chloride (Saline 0.9%) 1,000 mls @ 75 mls/hr IV .[id number] [facility] Last Admin: 10/02/23 13:04 Dose: 75 mls/hr Lidocaine HCl/Dextrose 2,000 (mg/ IV Solution) 250 mls @ 15 mls/hr IV .[id number] [facility] Last Admin: 10/02/23 13:03 Dose: 2 mg/min, 15 mls/hr Lactobacillus Acidophilus (Lactobacillus Acidophilus/Pect 1 Each Capsule) 1 each PO DAILY [facility] Last Admin: 10/02/23 09:08 Dose: Not Given Multivitamins (Multivitamins, Thera 1 Each Tab) 1 each PO DAILY [facility] Last Admin: 10/02/23 09:08 Dose: Not Given Nitroglycerin (Nitroglycerin Sl Tabs 0.4 Mg Tab) 0.4 mg SUBLINGUAL Q5M PRN PRN Reason: Chest Pain Spironolactone (Spironolactone 25 Mg Tab) 25 mg PO DAILY [facility] Last Admin: 10/02/23 14:59 Dose: 25 mg Past medical history to include: Hypertension, hyperlipidemia, I did discuss the back and neck, basal cell carcinoma, sick sinus syndrome, being worked up for right groin enlarged lymph nodes Social history: Patient lives with his Ajit. 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 Physical examination: VITAL SIGNS: 98, 58, 20, 133/84, 95% room air GENERAL: Reclining bed, comfortable EYES: Pupils equal. Conjunctiva normal. HEENT: External appearance of nose and ears normal, oral cavity grossly normal. NECK: JVD not raised; masses not palpable. HEART: First and second heart sounds are normal; no edema. LUNGS: Respiratory rate normal; clear to auscultation. ABDOMEN: Soft, nontender, liver spleen not palpable, no masses palpable. PSYCH: Alert and oriented x3; mood and affect normal. MUSCULOSKELETAL:No Clubbing/cyanosis;muscles-grossly intact INVESTIGATIONS, reviewed in the clinical context: White count 5.4 hemoglobin 15.7 platelets 140 sodium 135 potassium 4.1 BUN 17 creatinine 0.79 2-D echocardiogram: EF 60-65% Troponin I less than 0.012, 0.020, 0.017 EKG tracing personally reviewed by me-ventricular paced rhythm Chest x-ray film personally reviewed by me-hyperinflation Assessment and plan: -Episodes of ventricular ventricular fibrillation.: New onset Given IV amiodarone and then Started on oral amiodarone. Currently on IV lidocaine. Dr. Joshua Arvizu from EP following For cardiac catheterization tomorrow -Has a pacemaker for sick sinus syndrome Pacemaker check. Troponin is negative. Follow with cardiology. -Essential hypertension Tenormin 100 mg daily -Hyperlipidemia Lipitor 20 mg daily at bedtime -Anxiety not otherwise specified Xanax when necessary Discussed with patient. For cardiac catheterization tomorrow. Other medications as above
[2023-10-02] MEDS: AMIODARONE 200 MG TAB PO SCH ×2 (16:37→21:47)
[2023-10-02] MEDS: ASPIRIN 81 MG PO SCH (21:44)
[2023-10-02] MEDS: ATORVASTATIN 20 MG TAB PO SCH (21:49)
[2023-10-03] MEDS: SODIUM CHLORIDE 0.9% 1,000 ML IV SCH ×2 (01:32→15:55)
[2023-10-03 04:59] LABS: African American GFR (CKD) >90 (>60 ml/min/1.73 sqM); Anion Gap 8 mmol/L; Blood Urea Nitrogen 14 mg/dL (9-20); Calcium 8.6 mg/dL (8.4-10.2); Carbon Dioxide 20 mmol/L (22-30); Chloride 100 mmol/L (98-107); Glucose 99 mg/dL (74-99); Non-African American GFR(CKD) >90 (>60 ml/min/1.73 sqM); Sodium 128 mmol/L (137-145)
[2023-10-03] MEDS: LIDOCAINE-D5W PMX 2G/250ML 2,000 MG in DEXTROSE/WATER 1 250ML.BAG IV SCH (05:20)
[2023-10-03] MEDS: MULTIVITAMINS, THERA 1 EACH TAB PO SCH (08:16)
[2023-10-03] MEDS: LACTOBACILLUS ACIDOPHILUS/PECT 1 EACH CAPSULE PO SCH (08:16)
[2023-10-03] MEDS ORDERED: ONDANSETRON 4 MG/2 ML VIAL IVP PRN (08:19)
[2023-10-03] MEDS: ALPRAZolam 0.25 MG TAB PO PRN ×2 (08:50→15:54)
[2023-10-03] MEDS: atenoloL 50 MG TAB PO SCH ×2 (08:50→09:19)
[2023-10-03] MEDS: AMIODARONE 200 MG TAB PO SCH ×3 (08:51→21:23)
[2023-10-03] MEDS: SPIRONOLACTONE 25 MG TAB PO SCH (09:19)
[2023-10-03] MEDS ORDERED: NITROGLYCERIN SL TABS 0.4 MG TAB SUBLINGUAL PRN (09:26)
--- NOTE | 2023-10-03 09:43 | P.PN ---
Subjective Progress Note Date: 10/03/23 The patient is a 72-year-old male who presented to the hospital with irregular heart rate and palpitations. He initially notified EMS, who documentation of ventricular tachycardia, which was confirmed on device interrogation. The patient continued to have episodes of ventricular tachycardia while in the hospital. The patient was started on high-dose oral amiodarone as well as lidocaine drip. No additional episodes overnight. Patient was interviewed and examined resting comfortably in bed. He states he is experiencing some nausea, however has not eaten since 5 PM yesterday. He denies any chest pain or irregular heartbeat. GENERAL: Well-appearing, well-nourished and in no acute distress. NECK: Supple without JVD or thyromegaly. LUNGS: Breath sounds clear to auscultation bilaterally. Respiration equal and unlabored. No wheezes, rales or rhonchi. HEART: Regular rate and rhythm without murmurs, rubs or gallops. S1 and S2 heard. EXTREMITIES: Normal range of motion, no edema. No clubbing or cyanosis. Peripheral pulses intact and strong. TELEMETRY: Sinus rhythm overnight LABS: Sodium 128, potassium 4.0, BUN 14, creatinine 0.68, magnesium 1.9 IMPRESSION: Ventricular tachycardia, recurrent episodes History complete heart block Status post dual-chamber pacemaker, [employer] PVMT/atrial fibrillation Family history of sudden cardiac Normal 2-D echo earlier this year at primary cardiac esophagus Normal coronary angiogram 11 months back with mild mid LAD myocardial bridging PLAN: And by mouth after midnight for coronary angiogram tomorrow with Dr. Melchor Start mexiletine 150 mg 3 times per day Discontinue lidocaine drip 6 hours thereafter initial dose Continue oral amiodarone Further recommendations to be based upon clinical course I am dictating on behalf of Dr Joshua Cuellar's history/physical and assessment/plan. Objective - Vital Signs Vital signs: Vital Signs Temp 97.1 F L 10/03/23 00:00 Pulse 58 L 10/03/23 07:00 Resp 19 10/03/23 07:00 BP 125/78 10/03/23 07:00 Pulse Ox 92 L 10/03/23 07:00 FiO2 Intake & Output 10/02/23 10/03/23 10/03/23 18:59 06:59 18:59 Intake Total 1184.25 1469.25 150 Output Total 1025 675 0 Balance 159.25 794.25 150 Weight 72.5 kg Intake: IV 975 825 150 Sodium Chloride 0.9% 1, 975 825 150 000 ml @ 75 mls/hr IV . [id number] [facility] Rx#:[id number] Intake, IV Titration 209.25 244.25 Amount Lidocaine-D5w Pmx 2G/ 209.25 244.25 250Ml 2,000 mg In Dextrose/Water 1 250ml. bag @ 2 MG/MIN 15 mls/hr IV .[id number] [facility] Rx#: [id number] Oral 400 Output: Urine 1025 675 0 Other: Voiding Method Urinal Urinal - Labs CBC & Chem 7: 10/01/23 03:12 10/03/23 04:15 Labs: Abnormal Lab Results - Last 24 Hours (Table) 10/01/23 10/03/23 Range/Units 03:12 04:15 Sodium 128 L (137-145) mmol/L Carbon Dioxide 20 L (22-30) mmol/L HDL Cholesterol 64.90 H (40.00-60.00) mg/dL
[2023-10-03] MEDS: MEXILETINE 150 MG CAP PO SCH ×2 (10:21→15:54)
[2023-10-03 10:47] LABS: Glucose,Whole Blood 179 mg/dL (70-110)
--- NOTE | 2023-10-03 12:33 | P.PN ---
Progress Note - Text Progress Note Date: 10/03/23 Chief Complaint: Palpitation This is a pleasant 72-year-old patient who follows with Yeimy Deras. [employer] . Patient has a pacemaker for sick sinus syndrome. Around 2 AM patient felt palpitations as if his heart is was stopped. Took his pulse felt to be erratic. Did not feel right decided to come to the ER. His Accu-Chek was 70. Weight is relatively low for him. This morning pacemaker check was carried out. Seen by cardiology. Told to increase activity. Currently no chest pain or dizziness. Patient's had a previous cardiac catheterization - showed only mild disease October 02: Patient overnight had episodes of ventricular fibrillation. Initially given IV amiodarone. No help. Added IV lidocaine. Cutback in sinus rhythm. Seen by EP Dr. Joshua Arvizu. For cardiac catheterization tomorrow. October 03: ICU. Remains in paced rhythm. On oral amiodarone. Also IV lidocaine. Cardiology starting him on mexiletine. Patient being scheduled for cardiac catheterization tomorrow. No further episodes. Active Medications Alprazolam (Alprazolam 0.25 Mg Tab) 0.25 mg PO Q6HR PRN PRN Reason: Mild Anxiety Alprazolam (Alprazolam 0.5 Mg Tab) 0.5 mg PO Q6HR PRN PRN Reason: Moderate Anxiety Amiodarone HCl (Amiodarone 200 Mg Tab) 400 mg PO TID [facility] [place] Last Admin: 10/03/23 08:51 Dose: 400 mg Aspirin (Aspirin 81 Mg) 81 mg PO HS [facility] [place] Last Admin: 10/02/23 21:44 Dose: 81 mg Aspirin (Aspirin 325 Mg Tab) 325 mg PO ONCE ONE Stop: 10/04/23 05:01 Atenolol (Atenolol 50 Mg Tab) 100 mg PO DAILY [facility] [place] Last Admin: 10/03/23 09:19 Dose: 100 mg Atorvastatin Calcium (Atorvastatin 20 Mg Tab) 20 mg PO HS [facility] Last Admin: 10/02/23 21:49 Dose: 20 mg Atorvastatin Calcium (Atorvastatin 80 Mg Tab) 80 mg PO ONCE ONE Stop: 10/04/23 05:01 Sodium Chloride (Saline 0.9%) 1,000 mls @ 75 mls/hr IV .[id number] [facility] [place] Last Admin: 10/03/23 01:32 Dose: 75 mls/hr Lidocaine HCl/Dextrose 2,000 (mg/ IV Solution) 250 mls @ 15 mls/hr IV .[id number] [facility] Stop: 10/03/23 16:00 Last Infusion: 10/03/23 10:19 Dose: 1 mg/min, 7.5 mls/hr Heparin Sodium (Porcine) 10, (000 unit/ Sodium Chloride) 1,001 mls @ 999 mls/hr IRRIGATION ONCE PRN PRN Reason: INTRA-OP Stop: 10/04/23 23:00 Heparin Sodium (Porcine) 2,500 (unit/ Sodium Chloride) 250.5 mls @ 250 mls/hr IRRIGATION ONCE PRN PRN Reason: INTRA-OP Stop: 10/04/23 23:00 Sodium Chloride 1,000 ml/ IV (Solution) 1,000 mls @ 72.5 mls/hr IV .[id number] [facility] [place] Lactobacillus Acidophilus (Lactobacillus Acidophilus/Pect 1 Each Capsule) 1 each PO DAILY [facility] Last Admin: 10/03/23 08:16 Dose: Not Given Mexiletine HCl (Mexiletine 150 Mg Cap) 150 mg PO Q8HR [facility] Last Admin: 10/03/23 10:21 Dose: 150 mg Multivitamins (Multivitamins, Thera 1 Each Tab) 1 each PO DAILY [facility] Last Admin: 10/03/23 08:16 Dose: Not Given Nitroglycerin (Nitroglycerin Sl Tabs 0.4 Mg Tab) 0.4 mg SUBLINGUAL Q5M PRN PRN Reason: Chest Pain Ondansetron HCl (Ondansetron 4 Mg/2 Ml Vial) 4 mg IVP Q6HR PRN PRN Reason: Nausea And Vomiting Last Admin: 10/03/23 08:50 Dose: 4 mg Spironolactone (Spironolactone 25 Mg Tab) 25 mg PO DAILY [facility] Last Admin: 10/03/23 09:19 Dose: 25 mg Past medical history to include: Hypertension, hyperlipidemia, I did discuss the back and neck, basal cell carcinoma, sick sinus syndrome, being worked up for right groin enlarged lymph nodes Social history: Patient lives with his Ajit. 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 Physical examination: VITAL SIGNS: Afebrile, 58, 19, 125-78, 92% room air GENERAL: Laying in bed comfortable EYES: Pupils equal. Conjunctiva normal. HEENT: External appearance of nose and ears normal, oral cavity grossly normal. NECK: JVD not raised; masses not palpable. HEART: First and second heart sounds are normal; no edema. LUNGS: Respiratory rate normal; clear to auscultation. ABDOMEN: Soft, nontender, liver spleen not palpable, no masses palpable. PSYCH: Alert and oriented x3; mood and affect normal. MUSCULOSKELETAL:No Clubbing/cyanosis;muscles-grossly intact INVESTIGATIONS, reviewed in the clinical context: October 03: Sodium 128 potassium 4 creatinine 0.68 White count 5.4 hemoglobin 15.7 platelets 140 sodium 135 potassium 4.1 BUN 17 creatinine 0.79 2-D echocardiogram: EF 60-65% Troponin I less than 0.012, 0.020, 0.017 EKG tracing personally reviewed by me-ventricular paced rhythm Chest x-ray film personally reviewed by me-hyperinflation Assessment and plan: -Episodes of ventricular ventricular fibrillation.: Given IV amiodarone and then Started on oral amiodarone. Currently on IV lidocaine. Dr. Joshua Arvizu from EP following Mexiletine being started today. For cardiac catheterization rescheduled for tomorrow -Has a pacemaker for sick sinus syndrome Pacemaker check. Troponin is negative. Follow with cardiology. -Essential hypertension Tenormin 100 mg daily -Hyperlipidemia Lipitor 20 mg daily at bedtime -Anxiety not otherwise specified Xanax when necessary Discussed with patient. For cardiac catheterization tomorrow. Other medic ations as above
[2023-10-03] MEDS: ATORVASTATIN 20 MG TAB PO SCH (21:23)
[2023-10-03] MEDS: ASPIRIN 81 MG PO SCH (21:23)
[2023-10-03] MEDS: ALPRAZolam 0.5 MG TAB PO PRN (21:33)
[2023-10-03] MEDS ORDERED: SODIUM CHLORIDE 0.9% 1,000 ML in EMPTY BAG 1 BAG IV SCH (23:00)
[2023-10-04] MEDS: SODIUM CHLORIDE 0.9% 1,000 ML IV SCH (00:10)
[2023-10-04] MEDS: MEXILETINE 150 MG CAP PO SCH ×3 (00:10→16:30)
[2023-10-04 04:30] LABS: Basophils % (A) 0 %; Eosinophils % (A) 1 %; Lymphocytes # (A) 0.8 k/uL (1.0-4.8); Lymphocytes % (A) 18 %; MCH 34.2 pg (25.0-35.0); MCHC 34.2 g/dL (31.0-37.0); Mean Platelet Volume 8.2; Monocytes # (A) 0.6 k/uL (0-1.0); Monocytes % (A) 13 %; Neutrophils # (A) 3.1 k/uL (1.3-7.7); Neutrophils % (A) 65 %; Platelet Count 112 k/uL (150-450); RDW 12.1 % (11.5-15.5); WBC 4.7 k/uL (3.8-10.6)
[2023-10-04 04:37] LABS: African American GFR (CKD) >90 (>60 ml/min/1.73 sqM); Anion Gap 5 mmol/L; Blood Urea Nitrogen 16 mg/dL (9-20); Calcium 8.7 mg/dL (8.4-10.2); Carbon Dioxide 25 mmol/L (22-30); Chloride 103 mmol/L (98-107); Glucose 85 mg/dL (74-99); Non-African American GFR(CKD) >90 (>60 ml/min/1.73 sqM); Potassium 4.4 mmol/L (3.5-5.1); Sodium 133 mmol/L (137-145)
[2023-10-04] MEDS ORDERED: ASPIRIN 325 MG TAB PO ONE (05:00)
[2023-10-04] MEDS ORDERED: ATORVASTATIN 80 MG TAB PO ONE (05:00)
[2023-10-04] MEDS ORDERED: HEPARIN SODIUM,PORCINE 10,000 UNIT in SODIUM CHLORIDE 0.9% 1,000 ML IRRIGATION PRN (07:00)
[2023-10-04] MEDS ORDERED: HEPARIN SODIUM,PORCINE (1 ML) 2,500 UNIT in SODIUM CHLORIDE 0.9% 250 ML IRRIGATION PRN (07:00)
[2023-10-04] MEDS ORDERED: IV FLUID CONTINUATION 1,000 ML IV ONE (07:30)
[2023-10-04] MEDS ORDERED: fentaNYL (PF) 50 MCG/ML 2 ML AMP IVP ONE (07:37)
[2023-10-04] MEDS ORDERED: LIDOCAINE 1% INJ 10MG/ML (20 ML MDV) SQ ONE (07:37)
[2023-10-04] MEDS ORDERED: MIDAZOLAM 2 MG/2 ML VIAL IVP ONE (07:37)
[2023-10-04] MEDS ORDERED: VERAPAMIL SYRINGE (5 MG/10 ML) INTRAARTER ONE (07:39)
[2023-10-04] MEDS ORDERED: HEPARIN SODIUM 1,000 UN/ML (10ML VL) IV ONE (07:43)
[2023-10-04] MEDS ORDERED: IOPAMIDOL-370 100ML BTL INJ ONE (08:06)
--- NOTE | 2023-10-04 08:25 | CC ---
CARDIAC CATHETERIZATION REPORT INDICATION: Ventricular tachycardia to rule out underlying ischemic heart disease. REFERRING PHYSICIAN: Dr. Nat Gaffney. PROCEDURE NOTE: After obtaining informed consent, left heart catheterization and coronary angiogram were performed via right radial artery using standard Alexia catheters. The patient tolerated the procedure well without any obvious immediate complications. The patient received moderate conscious sedation. Total sedation time was 20 minutes. The patient was given verapamil and heparin per protocol. Right radial artery access was obtained using Seldinger technique. A 6-St Lucian sheath was placed. Catheters and wires were floated into the ascending aorta under fluoroscopic guidance. FINDINGS: HEMODYNAMICS: 1. Left ventricular end-diastolic pressure is 18 mm. There is no significant gradient across the aortic valve. 2. Left ventriculogram: Left ventriculogram is not performed. ANGIOGRAPHIC DATA: Right coronary artery: Right coronary artery is a large dominant vessel and is free of significant stenosis. Left main coronary artery is a normal-sized vessel and is free of stenosis. It divides into left anterior descending coronary artery and circumflex coronary artery. Circumflex coronary artery and its branches are free of significant stenosis. LAD shows myocardial bridging but is otherwise free of significant disease. CONCLUSIONS: 1. Normal coronary arteries. 2. Myocardial bridging involving mid LAD. PLAN: The patient's ventricular tachycardia and ventricular fibrillation does not seem to be ischemic in origin. He has been doing well since coming here, currently on mexiletine and Dr. Cuellar might place an ICD lead. MMODL / IJN: [id number] /
[2023-10-04] MEDS: AMIODARONE 200 MG TAB PO SCH ×3 (09:25→21:34)
[2023-10-04] MEDS: LACTOBACILLUS ACIDOPHILUS/PECT 1 EACH CAPSULE PO SCH (09:25)
[2023-10-04] MEDS: SPIRONOLACTONE 25 MG TAB PO SCH (09:29)
[2023-10-04] MEDS: MULTIVITAMINS, THERA 1 EACH TAB PO SCH (09:29)
[2023-10-04] MEDS ORDERED: SODIUM CHLORIDE 0.9% 1,000 ML IV SCH (09:30)
[2023-10-04] MEDS: atenoloL 50 MG TAB PO SCH (09:31)
--- NOTE | 2023-10-04 16:53 | P.PN ---
Progress Note - Text Progress Note Date: 10/04/23 Chief Complaint: Palpitation This is a pleasant 72-year-old patient who follows with Yeimy Deras. 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 Patient has a pacemaker for sick sinus syndrome. Around 2 AM patient felt palpitations as if his heart is was stopped. Took his pulse felt to be erratic. Did not feel right decided to come to the ER. His Accu-Chek was 70. Weight is relatively low for him. This morning pacemaker check was carried out. Seen by cardiology. Told to increase activity. Currently no chest pain or dizziness. Patient's had a previous cardiac catheterization - showed only mild disease October 02: Patient overnight had episodes of ventricular fibrillation. Initially given IV amiodarone. No help. Added IV lidocaine. Cutback in sinus rhythm. Seen by EP Dr. Joshua Arvizu. For cardiac catheterization tomorrow. October 03: ICU. Remains in paced rhythm. On oral amiodarone. Also IV lidocaine. Cardiology starting him on mexiletine. Patient being scheduled for cardiac catheterization tomorrow. No further episodes. October 04: ICU. Paced rhythm. Patient has a life vest. Started on mexiletine yesterday. No further episodes of arrhythmia. Tolerating a diet. Underwent cardiac catheterization today.-Normal coronaries Active Medications Alprazolam (Alprazolam 0.25 Mg Tab) 0.25 mg PO Q6HR PRN PRN Reason: Mild Anxiety Last Admin: 10/03/23 15:54 Dose: 0.25 mg Alprazolam (Alprazolam 0.5 Mg Tab) 0.5 mg PO Q6HR PRN PRN Reason: Moderate Anxiety Last Admin: 10/03/23 21:33 Dose: 0.5 mg Amiodarone HCl (Amiodarone 200 Mg Tab) 400 mg PO TID [facility] Last Admin: 10/04/23 16:30 Dose: 400 mg Aspirin (Aspirin 81 Mg) 81 mg PO HS [facility] Last Admin: 10/03/23 21:23 Dose: 81 mg Atenolol (Atenolol 50 Mg Tab) 100 mg PO DAILY [facility] Last Admin: 10/04/23 09:31 Dose: 100 mg Atorvastatin Calcium (Atorvastatin 20 Mg Tab) 20 mg PO HS [facility] Last Admin: 10/03/23 21:23 Dose: 20 mg Sodium Chloride (Saline 0.9%) 1,000 mls @ 75 mls/hr IV .[id number] [facility] Stop: 10/04/23 21:30 Last Admin: 10/04/23 09:30 Dose: 75 mls/hr Lactobacillus Acidophilus (Lactobacillus Acidophilus/Pect 1 Each Capsule) 1 each PO DAILY [facility] Last Admin: 10/04/23 09:25 Dose: 1 each Mexiletine HCl (Mexiletine 150 Mg Cap) 150 mg PO Q8HR [facility] Last Admin: 10/04/23 16:30 Dose: 150 mg Multivitamins (Multivitamins, Thera 1 Each Tab) 1 each PO DAILY [facility] Last Admin: 10/04/23 09:29 Dose: 1 each Nitroglycerin (Nitroglycerin Sl Tabs 0.4 Mg Tab) 0.4 mg SUBLINGUAL Q5M PRN PRN Reason: Chest Pain Ondansetron HCl (Ondansetron 4 Mg/2 Ml Vial) 4 mg IVP Q6HR PRN PRN Reason: Nausea And Vomiting Last Admin: 10/03/23 08:50 Dose: 4 mg Spironolactone (Spironolactone 25 Mg Tab) 25 mg PO DAILY [facility] Last Admin: 10/04/23 09:29 Dose: 25 mg Past medical history to include: Hypertension, hyperlipidemia, I did discuss the back and neck, basal cell carcinoma, sick sinus syndrome, being worked up for right groin enlarged lymph nodes Social history: Patient lives with his Ajit. 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 Physical examination: VITAL SIGNS: 97.2, 49, 14, 120/72, 99% room air GENERAL: Today up, comfortable. Life vest EYES: Pupils equal. Conjunctiva normal. HEENT: External appearance of nose and ears normal, oral cavity grossly normal. NECK: JVD not raised; masses not palpable. HEART: First and second heart sounds are normal; no edema. LUNGS: Respiratory rate normal; clear to auscultation. ABDOMEN: Soft, nontender, liver spleen not palpable, no masses palpable. PSYCH: Alert and oriented x3; mood and affect normal. MUSCULOSKELETAL:No Clubbing/cyanosis;muscles-grossly intact INVESTIGATIONS, reviewed in the clinical context: Cardiac catheterization [October 04]: Normal coronaries October 04: White count 4.7 potassium 4.4 creatinine 0.69 October 03: Sodium 128 potassium 4 creatinine 0.68 White count 5.4 hemoglobin 15.7 platelets 140 sodium 135 potassium 4.1 BUN 17 creatinine 0.79 2-D echocardiogram: EF 60-65% Troponin I less than 0.012, 0.020, 0.017 EKG tracing personally reviewed by me-ventricular paced rhythm Chest x-ray film personally reviewed by me-hyperinflation Assessment and plan: -Episodes of ventricular ventricular fibrillation.: Given IV amiodarone and then Started on oral amiodarone. IV lidocaine discontinued Dr. Joshua Arvizu from EP following Mexiletine . 150 mg every [address] Siobhan Melchor on October 04: Normal coronaries -Has a pacemaker for sick sinus syndrome Pacemaker check. Troponin is negative. Follow with cardiology. -Essential hypertension Tenormin 100 mg daily -Hyperlipidemia Lipitor 20 mg daily at bedtime -Anxiety not otherwise specified Xanax when necessary Cardiac catheterization today. Discussed with patient. Increase activity as tolerated.
[2023-10-04] MEDS ORDERED: HYDROCORTISONE 1% OINT 28.35 GM TUBE TOPICAL PRN (19:07)
[2023-10-04] MEDS: ATORVASTATIN 20 MG TAB PO SCH (21:34)
[2023-10-04] MEDS: ASPIRIN 81 MG PO SCH (21:34)
[2023-10-04] MEDS: ALPRAZolam 0.5 MG TAB PO PRN (21:37)
[2023-10-05] MEDS: MEXILETINE 150 MG CAP PO SCH ×3 (01:21→16:44)
[2023-10-05] MEDS: ALPRAZolam 0.25 MG TAB PO PRN (01:25)
[2023-10-05] MEDS: ALPRAZolam 0.5 MG TAB PO PRN (04:49)
[2023-10-05] MEDS: MULTIVITAMINS, THERA 1 EACH TAB PO SCH (08:26)
[2023-10-05] MEDS: LACTOBACILLUS ACIDOPHILUS/PECT 1 EACH CAPSULE PO SCH (08:26)
[2023-10-05] MEDS: AMIODARONE 200 MG TAB PO SCH ×3 (08:26→20:39)
[2023-10-05] MEDS: atenoloL 50 MG TAB PO SCH (08:27)
[2023-10-05] MEDS: SPIRONOLACTONE 25 MG TAB PO SCH (08:27)
[2023-10-05] MEDS ORDERED: LACTULOSE 20 GM/30 ML CUP PO ONE (12:38)
--- NOTE | 2023-10-05 12:52 | P.PN ---
Subjective HISTORY OF PRESENT ILLNESS: Patient is status post cardiac catheterization revealing normal coronary arteries and myocardial bridging involving the mid LAD. Patient examined this morning at the bedside. Patient denies chest pain or pressure. He denies shortness of breath. Vital signs are stable. Telemetry reveals sinus mechanism. PHYSICAL EXAM: VITAL SIGNS: Reviewed. GENERAL: Well-developed in no acute distress. NECK: Supple. No JVD or thyromegaly LUNGS: Respirations even and unlabored. Lungs essentially clear to auscultation bilaterally. HEART: Regular rate and rhythm. S1 and S2 heard. EXTREMITIES: Normal range of motion. No clubbing or cyanosis. Peripheral pulses intact. No lower extremity edema ASSESSMENT: Ventricular tachycardia, recurrent episodes Status post cardiac catheterization revealing normal coronary arteries and myocardial bridging involving the mid LAD History of complete heart block Status post dual-chamber pacemaker, [employer] Family history of sudden cardiac PLAN: Patient has received LifeVest Continue current cardiac medications Continue mexiletine for 6 weeks Continue amiodarone. Taper as follows: 400 mg 3 times a day for one week, then 200 mg twice a day for 2 weeks, then 200 mg daily Patient will undergo cardiac MRI at [facility] post discharge. Patient given number to call to schedule. Patient will require eventual ICD lead placement Continue to monitor patient for an additional 24 hours Anticipate discharge home tomorrow Nurse practitioner note has been reviewed by physician. Signing provider agrees with the documented findings, assessment, and plan of care. Objective - Vital Signs Vital signs: Vital Signs Temp 97.9 F 10/05/23 04:00 Pulse 54 L 10/05/23 04:00 Resp 16 10/05/23 08:15 BP 128/61 10/05/23 04:00 Pulse Ox 98 10/05/23 04:00 FiO2 Intake & Output 10/04/23 10/05/23 10/05/23 18:59 06:59 18:59 Intake Total 975 1590 118 Output Total 1025 550 Balance -50 1040 118 Intake: IV 975 150 Sodium Chloride 0.9% 1, 825 150 000 ml @ 75 mls/hr IV . [id number] [facility] Rx#:[id number] Oral 0 1440 118 Output: Urine 1025 550 Other: Voiding Method Urinal Urinal Urinal # Voids 1 1 - Labs CBC & Chem 7: 10/04/23 04:06 10/04/23 04:06
--- NOTE | 2023-10-05 14:57 | P.PN ---
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 Patient has a pacemaker for sick sinus syndrome. Around 2 AM patient felt palpitations as if his heart is was stopped. Took his pulse felt to be erratic. Did not feel right decided to come to the ER. His Accu-Chek was 70. Weight is relatively low for him. This morning pacemaker check was carried out. Seen by cardiology. Told to increase activity. Currently no chest pain or dizziness. Patient's had a previous cardiac catheterization - showed only mild disease October 02: Patient overnight had episodes of ventricular fibrillation. Initially given IV amiodarone. No help. Added IV lidocaine. Cutback in sinus rhythm. Seen by EP Dr. Joshua Arvizu. For cardiac catheterization tomorrow. October 03: ICU. Remains in paced rhythm. On oral amiodarone. Also IV lidocaine. Cardiology starting him on mexiletine. Patient being scheduled for cardiac catheterization tomorrow. No further episodes. October 04: ICU. Paced rhythm. Patient has a life vest. Started on mexiletine yesterday. No further episodes of arrhythmia. Tolerating a diet. Underwent cardiac catheterization today.-Normal coronaries October 05: Patient feeling much better. Given the choice of going home today or tomorrow by cardiology. Patient wishes to go home tomorrow. Ambulating in the hallway. I talked with the patient and his at the bedside. Has a life vest on. Active Medications Alprazolam (Alprazolam 0.25 Mg Tab) 0.25 mg PO Q6HR PRN PRN Reason: Mild Anxiety Last Admin: 10/05/23 01:25 Dose: 0.25 mg Alprazolam (Alprazolam 0.5 Mg Tab) 0.5 mg PO Q6HR PRN PRN Reason: Moderate Anxiety Last Admin: 10/05/23 04:49 Dose: 0.5 mg Amiodarone HCl (Amiodarone 200 Mg Tab) 400 mg PO TID [facility] Last Admin: 10/05/23 08:26 Dose: 400 mg Aspirin (Aspirin 81 Mg) 81 mg PO HS [facility] Last Admin: 10/04/23 21:34 Dose: 81 mg Atenolol (Atenolol 50 Mg Tab) 100 mg PO DAILY [facility] Last Admin: 10/05/23 08:27 Dose: 100 mg Atorvastatin Calcium (Atorvastatin 20 Mg Tab) 20 mg PO HS [facility] Last Admin: 10/04/23 21:34 Dose: 20 mg Hydrocortisone (Hydrocortisone 1% Oint 28.35 Gm Tube) 1 applic TOPICAL BID PRN; Protocol PRN Reason: Skin Irritation Last Admin: 10/04/23 21:39 Dose: 1 applic Lactobacillus Acidophilus (Lactobacillus Acidophilus/Pect 1 Each Capsule) 1 each PO DAILY [facility] Last Admin: 10/05/23 08:26 Dose: 1 each Mexiletine HCl (Mexiletine 150 Mg Cap) 150 mg PO Q8HR [facility] Last Admin: 10/05/23 08:27 Dose: 150 mg Multivitamins (Multivitamins, Thera 1 Each Tab) 1 each PO DAILY [facility] Last Admin: 10/05/23 08:26 Dose: 1 each Nitroglycerin (Nitroglycerin Sl Tabs 0.4 Mg Tab) 0.4 mg SUBLINGUAL Q5M PRN PRN Reason: Chest Pain Ondansetron HCl (Ondansetron 4 Mg/2 Ml Vial) 4 mg IVP Q6HR PRN PRN Reason: Nausea And Vomiting Last Admin: 10/03/23 08:50 Dose: 4 mg Spironolactone (Spironolactone 25 Mg Tab) 25 mg PO DAILY [facility] Last Admin: 10/05/23 08:27 Dose: 25 mg Past medical history to include: Hypertension, hyperlipidemia, I did discuss the back and neck, basal cell carcinoma, sick sinus syndrome, being worked up for right groin enlarged lymph nodes Social history: Patient lives with 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 Physical examination: VITAL SIGNS: 97.9, 54, 16, 1 28 x 61, 98% room air GENERAL: Sitting up in bed, comfortable Life vest EYES: Pupils equal. Conjunctiva normal. HEENT: External appearance of nose and ears normal, oral cavity grossly normal. NECK: JVD not raised; masses not palpable. HEART: First and second heart sounds are normal; no edema. LUNGS: Respiratory rate normal; clear to auscultation. ABDOMEN: Soft, nontender, liver spleen not palpable, no masses palpable. PSYCH: Alert and oriented x3; mood and affect normal. MUSCULOSKELETAL:No Clubbing/cyanosis;muscles-grossly intact INVESTIGATIONS, reviewed in the clinical context: Cardiac catheterization [October 04]: Normal coronaries October 04: White count 4.7 potassium 4.4 creatinine 0.69 October 03: Sodium 128 potassium 4 creatinine 0.68 White count 5.4 hemoglobin 15.7 platelets 140 sodium 135 potassium 4.1 BUN 17 creatinine 0.79 2-D echocardiogram: EF 60-65% Troponin I less than 0.012, 0.020, 0.017 EKG tracing personally reviewed by me-ventricular paced rhythm Chest x-ray film personally reviewed by me-hyperinflation Assessment and plan: -Episodes of ventricular ventricular fibrillation.: Stabilized Given IV amiodarone -. IV lidocaine discontinued Dr. Joshua Arvizu from EP following Mexiletine . 150 mg every 8. Oral amiodarone Cardiac catheterization by Dr. Siobhan Melchor on October 04: Normal coronaries -Has a pacemaker for sick sinus syndrome Pacemaker check. Troponin is negative. Follow with cardiology. -Essential hypertension Tenormin 100 mg daily -Hyperlipidemia Lipitor 20 mg daily at bedtime -Anxiety not otherwise specified Xanax when necessary Increase activity. If remains stable possibly home tomorrow.
[2023-10-05] MEDS: ASPIRIN 81 MG PO SCH (20:39)
[2023-10-05] MEDS: ATORVASTATIN 20 MG TAB PO SCH (20:39)
[2023-10-06] MEDS: MEXILETINE 150 MG CAP PO SCH ×2 (00:50→09:01)
[2023-10-06] MEDS: ALPRAZolam 0.5 MG TAB PO PRN (00:53)
[2023-10-06] MEDS: AMIODARONE 200 MG TAB PO SCH (09:01)
[2023-10-06] MEDS: atenoloL 50 MG TAB PO SCH (09:01)
[2023-10-06] MEDS: MULTIVITAMINS, THERA 1 EACH TAB PO SCH (09:01)
[2023-10-06] MEDS: SPIRONOLACTONE 25 MG TAB PO SCH (09:02)
[2023-10-06] MEDS: LACTOBACILLUS ACIDOPHILUS/PECT 1 EACH CAPSULE PO SCH (09:02)
[2023-10-06 09:10] VITALS: RESP 17
--- NOTE | 2023-10-06 10:34 | P.PN ---
Subjective HISTORY OF PRESENT ILLNESS: Patient is status post cardiac catheterization revealing normal coronary arteries and myocardial bridging involving the mid LAD. Patient examined this morning at the bedside. Patient denies chest pain or pressure. He denies shortness of breath. Vital signs are stable. Telemetry reveals sinus mechanism. 10/06/2023 Patient examined this morning at the bedside. Patient denies chest pain or pressure. He denies shortness of breath. He has been up ambulating in the hallway. Telemetry reveals paced rhythm. No further episodes of ventricular tachycardia. PHYSICAL EXAM: VITAL SIGNS: Reviewed. GENERAL: Well-developed in no acute distress. NECK: Supple. No JVD or thyromegaly LUNGS: Respirations even and unlabored. Lungs essentially clear to auscultation bilaterally. HEART: Regular rate and rhythm. S1 and S2 heard. EXTREMITIES: Normal range of motion. No clubbing or cyanosis. Peripheral pulses intact. No lower extremity edema ASSESSMENT: Ventricular tachycardia, recurrent episodes Status post cardiac catheterization revealing normal coronary arteries and myocardial bridging involving the mid LAD History of complete heart block Status post dual-chamber pacemaker, [employer] Family history of sudden cardiac PLAN: Patient has received LifeVest Continue current cardiac medications Continue mexiletine for 6 weeks Continue amiodarone. Taper as follows: 400 mg 3 times a day for one week, then 200 mg twice a day for 2 weeks, then 200 mg daily Patient will undergo cardiac MRI at [facility] post discharge. Patient given number to call to schedule. Patient will require eventual ICD lead placement The patient is stable for discharge home today from a exam point Nurse practitioner note has been reviewed by physician. Signing provider agrees with the documented findings, assessment, and plan of care. Objective - Vital Signs Vital signs: Vital Signs Temp 97.6 F 10/06/23 09:00 Pulse 58 L 10/06/23 09:00 Resp 17 10/06/23 09:00 BP 120/59 10/06/23 09:00 Pulse Ox 97 10/06/23 09:00 FiO2 Intake & Output 10/05/23 10/06/23 10/06/23 18:59 06:59 18:59 Intake Total 236 540 240 Balance 236 540 240 Intake: Oral 236 540 240 Other: Voiding Method Urinal Urinal Urinal # Voids 3 - Labs CBC & Chem 7: 10/04/23 04:06 10/04/23 04:06
[2023-10-06 11:20] VITALS: BMI 24.0
[2023-10-06 12:39] VITALS: BP 122/71; PULSE 56; TEMP 97.4
--- NOTE | 2023-10-07 19:47 | P.DS ---
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 Patient has a pacemaker for sick sinus syndrome. Around 2 AM patient felt palpitations as if his heart is was stopped. Took his pulse felt to be erratic. Did not feel right decided to come to the ER. His Accu-Chek was 70. Weight is relatively low for him. This morning pacemaker check was carried out. Seen by cardiology. Told to increase activity. Currently no chest pain or dizziness. Patient's had a previous cardiac catheterization - showed only mild disease October 02: Patient overnight had episodes of ventricular fibrillation. Initially given IV amiodarone. No help. Added IV lidocaine. Cutback in sinus rhythm. Seen by EP Dr. Joshua Arvizu. For cardiac catheterization tomorrow. October 03: ICU. Remains in paced rhythm. On oral amiodarone. Also IV lidocaine. Cardiology starting him on mexiletine. Patient being scheduled for cardiac catheterization tomorrow. No further episodes. October 04: ICU. Paced rhythm. Patient has a life vest. Started on mexiletine yesterday. No further episodes of arrhythmia. Tolerating a diet. Underwent cardiac catheterization today.-Normal coronaries October 05: Patient feeling much better. Given the choice of going home today or tomorrow by cardiology. Patient wishes to go home tomorrow. Ambulating in the hallway. I talked with the patient and his at the bedside. Has a life vest on. October 06: Up and about in the hallway. Stable. No cardiac symptoms. Has a life vest on. When discharged by Dr. Joshua Arvizu on mexiletine, amiodarone, atenolol. Levaquin neck MRI in the next 4 weeks. Weight is LifeVest for 3-4 months. 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 Dr. Joshua Arvizu discussed the options with him. Please refer to his note. Discussed with patient. 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 Physical examination: VITAL SIGNS: 97.4, 56, 17, 1 22 x 71, 98% room air GENERAL: comfortable Life vest EYES: Pupils equal. Conjunctiva normal. HEENT: External appearance of nose and ears normal, oral cavity grossly normal. NECK: JVD not raised; masses not palpable. HEART: First and second heart sounds are normal; no edema. LUNGS: Respiratory rate normal; clear to auscultation. ABDOMEN: Soft, nontender, liver spleen not palpable, no masses palpable. PSYCH: Alert and oriented x3; mood and affect normal. MUSCULOSKELETAL:No Clubbing/cyanosis;muscles-grossly intact INVESTIGATIONS, reviewed in the clinical context: Cardiac catheterization [October 04]: Normal coronaries October 04: White count 4.7 potassium 4.4 creatinine 0.69 October 03: Sodium 128 potassium 4 creatinine 0.68 White count 5.4 hemoglobin 15.7 platelets 140 sodium 135 potassium 4.1 BUN 17 creatinine 0.79 2-D echocardiogram: EF 60-65% Troponin I less than 0.012, 0.020, 0.017 EKG tracing personally reviewed by me-ventricular paced rhythm Chest x-ray film personally reviewed by me-hyperinflation Assessment and plan: -Episodes of ventricular ventricular fibrillation.: Stabilized Given IV amiodarone -. IV lidocaine discontinued Dr. Joshua Arvizu from EP following Mexiletine . 150 mg every 8. Oral amiodarone taper. Atenolol. Further options down the road discussed with Dr. Joshua Arvizu with the patient. Cardiac catheterization by Dr. Siobhan Melchor on October 04: Normal coronaries -Has a pacemaker for sick sinus syndrome Pacemaker was checked. Troponin is negative. Follow with cardiology. -Essential hypertension Tenormin 100 mg daily -Hyperlipidemia Lipitor 20 mg daily at bedtime -Anxiety not otherwise specified Xanax when necessary Disposition: Home Plan - Discharge Summary Discharge Rx Participant: No New Discharge Prescriptions: New Amiodarone [Cordarone] 400 mg PO TID #180 tab Mexiletine [Mexitil] 150 mg PO Q8HR #150 cap Aspirin 81 mg PO HS tab Hydrocortisone Oint [Hydrocortisone 1% Oint] 1 applic TOPICAL BID PRN each PRN Reason: Skin Irritation Spironolactone [Aldactone] 25 mg PO DAILY #90 tab atenoloL [Tenormin] 100 mg PO DAILY #180 tab Continue Papaya [Papaya Enzyme] 3 tab PO AC-BID PRN PRN Reason: Indigestion ALPRAZolam [Xanax] 0.125 - 0.25 mg PO TID PRN PRN Reason: Anxiety Atorvastatin [Lipitor] 20 mg PO HS L.acidoph,Paracasei, B.lactis [Probiotic] 2 cap PO DAILY Mv-Min/Folic/K1/Lycopen/Lutein [Centrum Silver Men Tablet] 1 tab PO DAILY Discontinued Aspirin EC [Ecotrin Low Dose] 81 mg PO DAILY PRN PRN Reason: Pain atenoloL [Tenormin] 50 mg PO AC-BRKFST atenoloL [Tenormin] 25 mg PO AC-SUPPER Discharge Medication List ALPRAZolam [Xanax] 0.125 - 0.25 mg PO TID PRN 01/05/21 [History] Atorvastatin [Lipitor] 20 mg PO HS 01/05/21 [History] L.acidoph,Paracasei, B.lactis [Probiotic] 2 cap PO DAILY 01/05/21 [History] Papaya [Papaya Enzyme] 3 tab PO AC-BID PRN 01/05/21 [History] Mv-Min/Folic/K1/Lycopen/Lutein [Centrum Silver Men Tablet] 1 tab PO DAILY 10/01/23 [History] Amiodarone [Cordarone] 400 mg PO TID #180 tab 10/05/23 [Rx] Mexiletine [Mexitil] 150 mg PO Q8HR #150 cap 10/05/23 [Rx] Aspirin 81 mg PO HS tab 10/06/23 [Rx] Hydrocortisone Oint [Hydrocortisone 1% Oint] 1 applic TOPICAL BID PRN each 10/06/23 [Rx] Spironolactone [Aldactone] 25 mg PO DAILY #90 tab 10/06/23 [Rx] atenoloL [Tenormin] 100 mg PO DAILY #180 tab 10/06/23 [Rx] Follow up Appointment(s)/Referral(s): Joshua Cuellar MD [STAFF PHYSICIAN] - 2 Weeks (please call to schedule follow up appt. tell them you were [facility]) Nat Gaffney DO [Primary Care Provider] - 1-2 days (please call to schedule follow up appt. tell them you were [facility]) Patient Instructions/Handouts: Premature Ventricular Contractions (DC), Wearable Cardioverter Defibrillator (DC) Activity/Diet/Wound Care/Special Instructions: Continue mexiletine for 6 weeks Continue amiodarone. Taper as follows: 400 mg 3 times a day for one week, then 200 mg twice a day for 2 weeks, then 200 mg daily Continue to wear Lifevest Discharge Disposition: HOME SELF-CARE
== END 2023-10-06 12:54 | disposition home or self-care (01) | DRG 287 ==
LOC: EC 02:41 → INTOOBSV 06:50 → OBSVTOIN 06:50 → 3SCARD 06:50 → OBSVTOIN 23:02 → 2SICU 23:04 → 3SCARD 10-04 23:01
PROVIDERS: ADMIT Hospitalist; ATTEND Hospitalist
PROC: B2111ZZ Fluoroscopy of Multiple Coronary Arteries using Low Osmolar Contrast (ICD-10-PCS; principal; 2023-10-06)
PROC: 4A023N7 Measurement of Cardiac Sampling and Pressure, Left Heart, Percutaneous Approach (ICD-10-PCS; 2023-10-06)
DX: I47.20 Ventricular tachycardia, unspecified (principal); Q24.5 Malformation of coronary vessels; I49.01 Ventricular fibrillation; I44.2 Atrioventricular block, complete; I49.5 Sick sinus syndrome; M50.20 Other cervical disc displacement, unspecified cervical region; I10 Essential (primary) hypertension; I48.91 Unspecified atrial fibrillation; E78.5 Hyperlipidemia, unspecified; F41.9 Anxiety disorder, unspecified; Z95.0 Presence of cardiac pacemaker; Z85.828 Personal history of other malignant neoplasm of skin; Z87.891 Personal history of nicotine dependence; Z79.82 Long term (current) use of aspirin; Z79.899 Other long term (current) drug therapy; Z82.41 Family history of sudden cardiac death; Z82.49 Family history of ischemic heart disease and other diseases of the circulatory system
CPT/HCPCS: 36415; 71045; 80048; 80053; 80061; 81003; 82164; 83735; 84443; 84484; 85025; 85610; 85730; 86140; 93005; 93306; 93458; 96360; 99285

== ENCOUNTER → 2023-11-22 | Day surgery (SDC) | payer MEDICARE ==
[~2023-11-22] MED LIST: SODIUM CHLORIDE 0.9% 1,000 ML IV SCH; ceFAZolin 1 GM in SODIUM CHLORIDE 0.9% IRRIG BTL 250 ML IRRIGATION PRN
== END ==
LOC: CATHEP 11:32
PROVIDERS: ATTEND Internal Medicine Clinical Cardiac Electrophysiology
DX: I47.10 Supraventricular tachycardia, unspecified (principal)

== ENCOUNTER 2023-12-01 09:11 | Day surgery (SDC) | payer MEDICARE ==
[2023-11-29 11:02] VITALS: BMI 21.7
[2023-12-01] MEDS ORDERED: SODIUM CHLORIDE 0.9% 1,000 ML IV ONE (10:02)
[2023-12-01 10:29] LABS: Basophils % (A) 0 %; Eosinophils # (A) 0.1 k/uL (0-0.7); Eosinophils % (A) 2 %; HCT 46.4 % (39.0-53.0); HGB 15.9 gm/dL (13.0-17.5); Lymphocytes # (A) 0.7 k/uL (1.0-4.8); Lymphocytes % (A) 10 %; MCH 34.1 pg (25.0-35.0); MCHC 34.3 g/dL (31.0-37.0); MCV 99.3 fL (80.0-100.0); Mean Platelet Volume 7.6; Monocytes # (A) 0.8 k/uL (0-1.0); Monocytes % (A) 12 %; Neutrophils # (A) 4.9 k/uL (1.3-7.7); Neutrophils % (A) 73 %; RBC 4.67 m/uL (4.30-5.90); WBC 6.8 k/uL (3.8-10.6)
[2023-12-01 10:30] LABS: Platelet Count 176 k/uL (150-450)
[2023-12-01 10:48] LABS: African American GFR (CKD) >90 (>60 ml/min/1.73 sqM); Anion Gap 9 mmol/L; Blood Urea Nitrogen 16 mg/dL (9-20); Calcium 9.6 mg/dL (8.4-10.2); Carbon Dioxide 31 mmol/L (22-30); Chloride 96 mmol/L (98-107); Glucose 96 mg/dL (74-99); Non-African American GFR(CKD) 86 (>60 ml/min/1.73 sqM); Potassium 4.3 mmol/L (3.5-5.1); Sodium 136 mmol/L (137-145)
[2023-12-01] MEDS ORDERED: LIDOCAINE 1% INJ 10MG/ML (20 ML MDV) ONE ×2 (12:24→12:35)
[2023-12-01] MEDS ORDERED: MIDAZOLAM 2 MG/2 ML VIAL ONE (12:35)
[2023-12-01] MEDS ORDERED: ROCURONIUM 10 MG/ML (5 ML VIAL) IV ONE (12:35)
[2023-12-01] MEDS ORDERED: PHENYLEPHRINE 10 MG/ML VIAL ONE (12:35)
[2023-12-01] MEDS ORDERED: WATER FOR INJECTION, STERILE 10 ML VIAL IV ONE (12:35)
[2023-12-01] MEDS ORDERED: PROPOFOL 10 MG/ML 20 ML VIAL IV ONE (12:35)
[2023-12-01] MEDS ORDERED: NEOSTIGMINE 1 MG/ML 10 ML VIAL ONE (12:35)
[2023-12-01] MEDS ORDERED: ePHEDrine 50 MG/ML 1 ML VIAL ONE (12:35)
[2023-12-01] MEDS ORDERED: GLYCOPYRROLATE 0.2 MG/ML 2 ML VIAL ONE (12:35)
[2023-12-01] MEDS ORDERED: IOPAMIDOL-370 100ML BTL IVP ONE (13:08)
[2023-12-01] MEDS ORDERED: LIDOCAINE 1% INJ 10MG/ML (20 ML MDV) SQ ONE (13:32)
[2023-12-01] MEDS ORDERED: VANCOMYCIN 1,000 MG in SODIUM CHLORIDE 0.9% 250 ML IVPB ONE (16:02)
[2023-12-01] MEDS ORDERED: ACETAMINOPHEN IV (For NPO) 1,000 MG in EMPTY BAG 1 BAG IVPB ONE (16:52)
--- NOTE | 2023-12-01 17:33 | P.EPPROC ---
- EP Procedure Note Electrophysiology Procedure Note: Diagnosis Idiopathic VF requiring resuscitation Complete heart block status post dual-chamber pacemaker 3 years back No evidence for cardiac sarcoidosis on cardiac MRI Result Biventricular ICD generator implant New single coil DF-4 ICD lead New LV lead inability stable lateral position along the lateral wall of the LV New right atrial lead Old atrial and RV pacing leads capped Details Patient was brought to the EP lab in a fasting state. Written informed consent was obtained prior to the procedure. 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 Incision was made 2 cm medial to the deltopectoral groove and carried down to the level of the generator Generator was subcuticular and very close to the clavicle The atrial and ventricular leads were coiled with scar tissue and sutured together as well as to the device. There was a suture around the shaft of both leads to. The device, dual-chamber pacemaker was explanted. Partial capsulectomy was performed Suture [] were of removed The atrial lead P waves were very diminutive. Thresholds were greater than 2.0 Access was obtained in the left axillary vein and we were able to place angioplasty wires into the right side of the heart ICD lead implant: Novoa optisure, 58 cm lead was positioned in the right ventricle and screwed in the mid RV septum away from the chronic RV lead. The chronic RV lead had lost its healed completely and was in the mid RV, screwed in the septal R waves were nonexistent since the patient complete heart block Pacing impedance 650 ohms Pacing threshold 0.5 V at 0.5 ms High-voltage impedance 81 ohms The coronary sinus within accessed and Carlo sinus venogram was performed There is a large anterior lateral vein that extended all the way down along the lateral wall of the LV An LV lead was positioned in this vein but there was diaphragmatic stimulation practically all along the vein. Multiple sites were tested proximally and distally Therefore other veins were sought The patient had anterolateral veins and lateral veins Who they'll hold diminutive with diaphragmatic stimulation didn't pacing. The leads in these veins were not stable since the veins were diminutive and short and at least 1-2 poles who is the main coronary sinus body. A Metronic screw-in lead was also attempted but even the screw not pus into the LV vein because of his very short length Therefore, the anterior lateral vein was accessed again and a quartet 75 cm model #1458 UL was placed in the vein He was able to find a position for the proximal poles were there was no diaphragmatic stimulation at 5 V and the thresholds were quite reasonable Pacing impedance 780 ohms and pacing threshold (P4-M3) was 0.75 V at 0.5 ms The lead was in excellent position on the lateral wall of the left ventricle in the [place] view and very stable in position However multiple LV tributaries were accessed and tested before this final position was accepted This took almost 2 hours of we did not attempt left bundle pacing since the patient already had and RV lead was implanted 3 years back, traversing across the tricuspid valve We implanted in ICD lead traversing across the tricuspid valve Had we implanted a left bundle lead that would've been 3 leads across tricuspid valve resulting in damage to the valve and tricuspid regurgitation to become problematic Therefore and LV lead was not entertained for this specific reason The atrial lead sensing and pacing thresholds were very suboptimal and therefore a new atrial lead was implanted and screwed in the right atrial appendage this was a tendril STS 52 cm lead This was screwed in the right atrial appendage P waves 2.9 mV Pacing impedance 710 ohms and pacing threshold 1 V at 0.5 ms The old, chronic atrial and RV pacing leads were capped and secured to the underlying muscle New generator was implanted this was a [place] heart failure device Antibiotic pouch was placed The device was secured to the underlying pectoralis muscle line and the wound was closed in 3 layers and dressed per protocol This is a very long procedure on account of difficulty with left axillary venous access, securing the leads safely away from the old leads, mapping of all left ventricular veins therefore final placement. The procedure took greater than 4-5 hours
[2023-12-01] MEDS: ACETAMINOPHEN TAB 325 MG TAB PO PRN (18:55)
[2023-12-01] MEDS ORDERED: ALPRAZolam 0.25 MG TAB PO PRN (19:57)
[2023-12-01] MEDS ORDERED: HYDROcodone/APAP 5-325MG 1 EACH TAB PO PRN (19:58)
[2023-12-01] MEDS ORDERED: ATORVASTATIN 20 MG TAB PO SCH (21:00)
[2023-12-02 01:21] VITALS: PULSE 60
[2023-12-02] MEDS: ACETAMINOPHEN TAB 325 MG TAB PO PRN (01:31)
[2023-12-02 07:48] VITALS: BP 101/61; RESP 18; TEMP 97.4
--- NOTE | 2023-12-02 08:12 | P.DS ---
Providers Attending physician: Joshua Cuellar Primary care physician: Nat [facility] Course: This is doing well. No chest discomfort but he does have local tenderness over the ICD site. 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 The old atrial and ventricular leads were both abandoned An atrial lead ICD lead and the LV lead was implanted Plan Continue home medications unchanged that atenolol and spironolactone and be held today Patient was asked to hydrate well On restrictions explained also arm movements explained to facilitate the flow of blood and minimize left upper extremity DVT He may take an aspirin 81 mg by mouth daily also for a month Chest x-ray is within normal limits He may go home after device was interrogated today Plan - Discharge Summary Discharge Rx Participant: No New Discharge Prescriptions: No Action Papaya [Papaya Enzyme] 3 tab PO AC-BID PRN PRN Reason: Indigestion ALPRAZolam [Xanax] 0.125 - 0.25 mg PO TID PRN PRN Reason: Anxiety Atorvastatin [Lipitor] 20 mg PO HS L.acidoph,Paracasei, B.lactis [Probiotic] 2 cap PO DAILY Mv-Min/Folic/K1/Lycopen/Lutein [Centrum Silver Men Tablet] 1 tab PO DAILY Hydrocortisone Oint [Hydrocortisone 1% Oint] 1 applic TOPICAL BID PRN each PRN Reason: Skin Irritation Amiodarone [Cordarone] 200 mg PO DAILY Ciclopirox 1 dose TOPICAL DAILY Spironolactone [Aldactone] 25 mg PO DAILY #90 tab atenoloL [Tenormin] 100 mg PO DAILY #180 tab fluorouraciL [Efudex] 1 dose TOPICAL DAILY PRN PRN Reason: spots on skin Discharge Medication List ALPRAZolam [Xanax] 0.125 - 0.25 mg PO TID PRN 01/05/21 [History] Atorvastatin [Lipitor] 20 mg PO HS 01/05/21 [History] L.acidoph,Paracasei, B.lactis [Probiotic] 2 cap PO DAILY 01/05/21 [History] Papaya [Papaya Enzyme] 3 tab PO AC-BID PRN 01/05/21 [History] Mv-Min/Folic/K1/Lycopen/Lutein [Centrum Silver Men Tablet] 1 tab PO DAILY 10/01/23 [History] Hydrocortisone Oint [Hydrocortisone 1% Oint] 1 applic TOPICAL BID PRN each 10/06/23 [Rx] Spironolactone [Aldactone] 25 mg PO DAILY #90 tab 10/06/23 [Rx] atenoloL [Tenormin] 100 mg PO DAILY #180 tab 10/06/23 [Rx] Amiodarone [Cordarone] 200 mg PO DAILY 11/29/23 [History] Ciclopirox 1 dose TOPICAL DAILY 11/29/23 [History] fluorouraciL [Efudex] 1 dose TOPICAL DAILY PRN 11/29/23 [History] Follow up Appointment(s)/Referral(s): Joshua Cuellar MD [STAFF PHYSICIAN] - 1 Week Activity/Diet/Wound Care/Special Instructions: PATIENT EDUCATION MATERIAL Instructions following a heart rhythm device implant. 1. Keep dressing DRY for 5 DAYS. You may cover the area with Saran or Cling Wrap, prior to a shower. 2. The dressing will be removed in the Device Clinic at [facility]. Absorbable sutures were used to close the wound. 3. Avoid raising the left arm above the shoulder level. 4 week restriction 4. Avoid arm movements, like backscratching, rubbing the head, or pulling on a cord. 4 weeks restriction 5. Gentle range of motion movements of the shoulder, closest to the incision should be performed to avoid a frozen shoulder. (Pendulum exercises of the shoulder) 6. The opposite arm may be used freely. 7. Avoid driving for 7 days. 8. Avoid activities such as golfing, swimming, weed whacking, lifting more than 10 pounds weight, bowling, gymnastics and weight training/lifting. (6 weeks restriction) 9. Activities such as wood chopping with an axe, pull-ups in the gymnasium, power lifting, arc-welding, being close to home induction cooktops will always be a problem. 10. Arm sling is only a reminder not to raise the arm above the head. You do not need to keep the arm completely immobilized. Your free to move the arm and use it and for normal activities. In case of any problems, please call [facility], [place], @ [phone], Attention: Device Clinic Device clinic follow-up in 5 days Follow-up with primary chute tender in 2-3 months Discharge Disposition: HOME SELF-CARE
[2023-12-02] MEDS ORDERED: atenoloL 50 MG TAB PO SCH (09:00)
[2023-12-02] MEDS ORDERED: AMIODARONE 200 MG TAB PO SCH (09:00)
[2023-12-02] MEDS ORDERED: SPIRONOLACTONE 25 MG TAB PO SCH (09:00)
--- NOTE | 2023-12-02 18:17 | XR ---
EXAMINATION TYPE: XR chest 2V DATE OF EXAM: 12/02/2023 COMPARISON: 10/01/2023 HISTORY: 73-year-old male placement check TECHNIQUE: Frontal and lateral views FINDINGS: Left anterior chest wall AICD generator with 2 right atrial, 2 right ventricular, and coronary sinus leads. The heart is normal size. Aorta and pulmonary vasculature within normal limits. Mild hyperinfl ation may relate to depth of inspiration or underlying emphysema. No appreciable thorax. No consolida tion or pleural effusion. IMPRESSION: Hyperinflation may relate to a depth of inspiration or underlying emphysema. Clinically correlate. There has been the addition of new right atrial, right ventricular, and coronary sinus AICD leads.
== END 2023-12-02 11:30 | disposition home or self-care (01) ==
LOC: CATHEP 09:11 → 6NMEDSUR 16:38 → CATHEP 12-02 11:30
PROVIDERS: ATTEND Internal Medicine Clinical Cardiac Electrophysiology
DX: I44.2 Atrioventricular block, complete (principal); I49.01 Ventricular fibrillation; Z79.82 Long term (current) use of aspirin; Z79.899 Other long term (current) drug therapy; Z95.810 Presence of automatic (implantable) cardiac defibrillator
CPT/HCPCS: 33225; 33249; 33233; 80048; 85025; 71046; C1769 ×5; C1882; C1892 ×2; C1730; C1887; C1900 ×2; C1898; C1777; J2250; J3370; J2710; J0690 ×2; J2001; J2704; Q9967; J2371

== ENCOUNTER 2025-02-22 14:26 | Observation (INO) | payer MEDICARE ==
--- NOTE | 2025-02-22 15:19 | ED ---
General Adult HPI - General Chief complaint: Chest Pain Stated complaint: chest pain-transfer Time Seen by Provider: 02/22/25 14:40 Source: patient, EMS, RN notes reviewed, old records reviewed Mode of arrival: EMS Limitations: no limitations - History of Present Illness Initial comments: This is a 74-year-old male who presents to the emergency department after having been seen at [facility]. Patient has a pacemaker and defibrillator. Patient states he started having chest pain about 9:00 this morning and it never went away since. Patient states it does get worse at times and it does seem to be a little worse with lying flat and taking deep breaths. Patient denies any shortness of breath though. Patient denies any fever chills. Patient has any swelling to legs or calf tenderness. Patient states he has not had this kind of chest pain ever in the past. Patient denies any recent trauma or injury or increased pain with movement - Related Data Home Medications Medication Instructions Recorded Confirmed ALPRAZolam [Xanax] 0.125 - 0.25 mg PO TID PRN 01/05/21 12/01/23 Atorvastatin [Lipitor] 20 mg PO HS 01/05/21 11/29/23 L.acidoph,Paracasei, B.lactis 2 cap PO DAILY 01/05/21 11/29/23 [Probiotic] Papaya [Papaya Enzyme] 3 tab PO AC-BID PRN 01/05/21 11/29/23 Mv-Min/Folic/K1/Lycopen/Lutein 1 tab PO DAILY 10/01/23 11/29/23 [Centrum Silver Men Tablet] Amiodarone [Cordarone] 200 mg PO DAILY 11/29/23 12/01/23 Ciclopirox 1 dose TOPICAL DAILY 11/29/23 11/29/23 fluorouraciL [Efudex] 1 dose TOPICAL DAILY PRN 11/29/23 11/29/23 Previous Rx's Medication Instructions Recorded Hydrocortisone Oint 1 applic TOPICAL BID PRN each 10/06/23 [Hydrocortisone 1% Oint] Spironolactone [Aldactone] 25 mg PO DAILY #90 tab 10/06/23 atenoloL [Tenormin] 100 mg PO DAILY #180 tab 10/06/23 Aspirin 81 mg PO DAILY #30 tab 12/02/23 Allergies Allergy/AdvReac Type Severity Reaction Status Date / Time No Known Allergies Allergy Verified 02/22/25 14:39 Review of Systems ROS Statement: Those systems with pertinent positive or pertinent negative responses have been documented in the HPI. ROS Other: All systems not noted in ROS Statement are negative. Past Medical History Past Medical History: Cancer, Hyperlipidemia, Hypertension Additional Past Medical History / Comment(s): See Dr Cuellar's H&P, Lifevest removed 12-01-2023,hx complete heart block,back/neck pain with herniated discs, bradycardia, basal cell carcinoma removed from nose in June 2020, pacemaker replacement 12-01-2023 History of Any Multi-Drug Resistant Organisms: None Reported Past Surgical History: Orthopedic Surgery, Pacemaker Additional Past Surgical History / Comment(s): left knee arthroscopy times 2,thumb surgery,eric cataracts, pacemaker replacement 12-01-2023 Past Anesthesia/Blood Transfusion Reactions: No Reported Reaction Additional Past Anesthesia/Blood Transfusion Reaction / Comment(s): no hx blood transfusion Type of Cardiac Device: Biventricular Pacemaker, Permanent Pacemaker Device Placement Date:: 12-01-2023 Past Psychological History: Anxiety Smoking Status: Former smoker Past Alcohol Use History: Rare Past Drug Use History: None Reported - Past Family History Father Family Medical History: Cancer Additional Family Medical History / Comment(s): lung cancer 83 Mother Family Medical History: Cancer Additional Family Medical History / Comment(s): bladder cancer at age 71 Sister(s) Family Medical History: Cancer, Osteoarthritis (OA) Additional Family Medical History / Comment(s): leukemia Brother(s) Family Medical History: Myocardial Infarction (LA) Additional Family Medical History / Comment(s): at age 68 General Exam - General Exam Comments Initial Comments: GENERAL: Patient is well-developed and well-nourished. Patient is nontoxic and well- hydrated and is in mild distress. ENT: Neck is soft and supple. No significant lymphadenopathy is noted. Oropharynx is clear. Moist mucous membranes. Neck has full range of motion without eliciting any pain. EYES: The sclera were anicteric and conjunctiva were pink and moist. Extraocular movements were intact and pupils were equal round and reactive to light. Eyelids were unremarkable. PULMONARY: Unlabored respirations. Good breath sounds bilaterally. No audible rales rhonchi or wheezing was noted. CARDIOVASCULAR: There is a regular rate and rhythm without any murmurs gallops or rubs. ABDOMEN: Soft and nontender with normal bowel sounds. No palpable organomegaly was noted. There is no palpable pulsatile mass. SKIN: Skin is clear with no lesions or rashes and otherwise unremarkable. NEUROLOGIC: Patient is alert and oriented x3. Cranial nerves II through XII are grossly intact. Motor and sensory are also intact. Normal speech, volume and content. Symmetrical smile. MUSCULOSKELETAL: Normal extremities with adequate strength and full range of motion. No lower extremity swelling or edema. No calf tenderness. LYMPHATICS: No significant lymphadenopathy is noted PSYCHIATRIC: Normal psychiatric evaluation. Limitations: no limitations Course Vital Signs 02/22/25 14:33 Temperature 98.6 F Pulse Rate 60 Respiratory 16 Rate Blood Pressure 112/78 O2 Sat by Pulse 99 Oximetry Medical Decision Making - Medical Decision Making EKG is interpreted by myself. EKG shows a paced rhythm at 60 bpm AK was under 94 QRS is 154 QT interval is 453 QTc is 453. Was pt. sent in by a medical professional or institution (, PA, TILE HELPER, urgent care, hospital, or long-term...) When possible be specific @ -No Did you speak to anyone other than the patient for history (EMS, parent, family, police, friend...)? What history was obtained from this source @ -No Did you review nursing and triage notes (agree or disagree)? Why? @ -I reviewed and agree with nursing and triage notes Were old charts reviewed (outside hosp., previous admission, EMS record, old EKG, old radiological studies, urgent care reports/EKG's, long-term records)? Report findings @ -No Differential Diagnosis? @ -Differential Chest Pain: Stable Angina, Unstable Angina, STEMI, NSTEMI Aortic Dissection, Pneumothorax, Musculoskeletal, Esophageal Spasm GERD, Cholecystitis, Pancreatitis, Zoster, this is not meant to be an all-inclusive list. EKG interpreted by me (3pts min.). @ -As above X-rays interpreted by me (1pt min.). @ -Chest x-ray shows no acute normality CT interpreted by me (1pt min.). @ -None done U/S interpreted by me (1pt. min.). @ -None done What testing was considered but not performed or refused? (CT, X-rays, U/S, labs)? Why? @ -None What meds were considered but not given or refused? Why? @ -None Did you discuss the management of the patient with other professionals (professionals i.e. Dr., PA, TILE HELPER, lab, RT, psych nurse, social media analyst, health promoter, teacher, medical officer psychiatry, case investigator)? Give summary @ -No Was smoking cessation discussed for >3mins.? @ -No Was critical care preformed (if so, how long)? @ -No Were there social determinants of health that impacted care today? How? (Homelessness, low income, unemployed, alcoholism, drug addiction, transportation, low edu. Level, literacy, decrease access to med. care, retirement, rehab)? @ -No Was there de-escalation of care discussed even if they declined (Discuss DNR or withdrawal of care, Hospice)? DNR status @ -No What co-morbidities impacted this encounter? (DM, HTN, Smoking, COPD, CAD, Cancer, CVA, ARF, Chemo, Hep., AIDS, mental health diagnosis, sleep apnea, morbid obesity)? @ -None Was patient admitted / discharged? Hospital course, mention meds given and route, prescriptions, significant lab abnormalities, going to OR and other pertinent info. @ -Patient did not want anything for pain medication. Patient states nothing seemed to work earlier any help. I spoke with Dr. Bobo he agreed to admit the patient will admit the patient wrote admitting orders consult cardiology and get an echo Undiagnosed new problem with uncertain prognosis? @ -No Drug Therapy requiring intensive monitoring for toxicity (Heparin, Nitro, Insulin, Cardizem)? @ -No Were any procedures done? @ -No Diagnosis/symptom? @ -Chest pain Acute, or Chronic, or Acute on Chronic? @ -Acute Uncomplicated (without systemic symptoms) or Complicated (systemic symptoms)? @ -Complicated Side effects of treatment? @ -No Exacerbation, Progression, or Severe Exacerbation? @ -No Poses a threat to life or bodily function? How? (Chest pain, [place], LA, pneumonia, PE, COPD, DKA, ARF, appy, cholecystitis, CVA, Diverticulitis, Homicidal, Suicidal, threat to staff... and all critical care pts) @ -Yes this could lead to an LA and endorgan dysfunction Diagnosis/symptom? @ -Pericardial effusion Acute, or Chronic, or Acute on Chronic? @ -Acute Uncomplicated (without systemic symptoms) or Complicated (systemic symptoms)? @ -Complicated Side effects of treatment? @ -None Exacerbation, Progression, or Severe Exacerbation] @ -No Poses a threat to life or bodily function? @ -No Disposition Clinical Impression: Chest pain, Pericardial effusion Disposition: ADMITTED IP TO THIS HOSP Referrals: Nat Gaffney DO [Primary Care Provider] - 1-2 days Time of Disposition: 15:19
[2025-02-22] MEDS: NITROGLYCERIN SL TABS 0.4 MG TAB SUBLINGUAL PRN (16:59)
[2025-02-22 17:06] VITALS: PULSE 60
--- NOTE | 2025-02-22 19:15 | P.HPIM ---
History of Present Illness H&P Date: 02/22/25 Chief Complaint: Chest pressure This is a pleasant 74-year-old patient who follows with Yeimy Deras. Craft Manager Dr. Sanders. Patient has a pacemaker for sick sinus syndrome. Has had ventricular fibrillation. Has been on different antiarrhythmics. In September 2023 cardiac catheterization showed minimal disease. Patient is accompanied by his Ajit. For 2 months patient been having sharp pains intermittently in the left anterior chest and the nipple line. He did see pacemaker clinic [facility] there and that was found to be doing fine. This morning patient noted chest pressure since about 10:00 in the morning. No radiation. No dizziness no lightheadedness. Yesterday patient had lifted about a 30 pound statue to put it up. Above his shoulder level. Otherwise fairly active does 30 minutes of walk about 4 5 times a week. No cough no shortness of breath. The pain is slightly worse when he takes a deep breath. No fever no chills Review of systems: GEN.: None EYES: None HEENT: None NECK: None RESPIRATORY: As above CARDIOVASCULAR: As above GASTROINTESTINAL: None GENITOURINARY: None MUSCULOSKELETAL: None LYMPHATICS: None HEMATOLOGICAL: None PSYCHIATRY: None NEUROLOGICAL: None Past medical history to include: Hypertension, hyperlipidemia, , basal cell carcinoma, sick sinus syndrome, arrhythmias Social history: Patient lives with his Ajit. 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 Physical examination: VITAL SIGNS: 98.6, 60, 16, 118 x 70, 97% room GENERAL: BMI 23, laying in bed awake comfortable EYES: Pupils equal. Conjunctiva normal. HEENT: External appearance of nose and ears normal, oral cavity grossly normal. NECK: JVD not raised; masses not palpable. HEART: First and second heart sounds are normal; no edema. LUNGS: Respiratory rate normal; clear to auscultation. ABDOMEN: Soft, nontender, liver spleen not palpable, no masses palpable. PSYCH: Alert and oriented x3; mood and affect normal. MUSCULOSKELETAL:No Clubbing/cyanosis;muscles-grossly intact NEUROLOGICAL: Cranial nerves grossly intact; no facial asymmetry, power and sensation grossly intact. LYMPHATICS: No lymph nodes palpable in the axilla and neck INVESTIGATIONS, reviewed in the clinical context: Troponin I less than 0.012 x 2 EKG tracing personally reviewed by me-ventricular paced rhythm 2022 Cardiac catheterization [October 04]: Normal coronaries 2-D echocardiogram: EF 60-65% Assessment and plan: -Anterior chest wall pressure. Present constant since morning till 10 AM. Some reproducible pain. Possibly musculoskeletal. Patient normally limited in lifting weights. But yesterday lifted a statue about 30 pounds over the shoulder. Cardiac catheterization in 2022 showed normal coronaries - History of arrhythmias including ventricular fibrillation - pacemaker for sick sinus syndrome Pacemaker was checked. Recently -Essential hypertension Tenormin 50 mg twice daily -Hyperlipidemia Pravachol 10 mg nightly -Anxiety not otherwise specified Xanax when necessary Patient on telemetry. Cardiology consulted. Discussed with patient. Past Medical History Past Medical History: Cancer, Hyperlipidemia, Hypertension Additional Past Medical History / Comment(s): See Dr Cuellar's H&P, Lifevest removed 12-01-2023,hx complete heart block,back/neck pain with herniated discs, bradycardia, basal cell carcinoma removed from nose in June 2020, pacemaker replacement 12-01-2023 History of Any Multi-Drug Resistant Organisms: None Reported Past Surgical History: Orthopedic Surgery, Pacemaker Additional Past Surgical History / Comment(s): left knee arthroscopy times 2,thumb surgery,eric cataracts, pacemaker replacement 12-01-2023 Past Anesthesia/Blood Transfusion Reactions: No Reported Reaction Additional Past Anesthesia/Blood Transfusion Reaction / Comment(s): no hx blood transfusion Type of Cardiac Device: Biventricular Pacemaker, Permanent Pacemaker Device Placement Date:: 12-01-2023 Past Psychological History: Anxiety Smoking Status: Former smoker Past Alcohol Use History: Rare Additional Past Alcohol Use History / Comment(s): quit smoking Past Drug Use History: None Reported - Past Family History Father Family Medical History: Cancer Additional Family Medical History / Comment(s): lung cancer 83 Mother Family Medical History: Cancer Additional Family Medical History / Comment(s): bladder cancer at age 71 Sister(s) Family Medical History: Cancer, Osteoarthritis (OA) Additional Family Medical History / Comment(s): leukemia Brother(s) Family Medical History: Myocardial Infarction ([place]) Additional Family Medical History / Comment(s): at age 68 Medications and Allergies Home Medications Medication Instructions Recorded Confirmed Type ALPRAZolam [Xanax] 0.125 - 0.25 mg PO TID PRN 01/05/21 02/22/25 History Amiodarone [Cordarone] 100 mg PO HS 02/22/25 02/22/25 History Eplerenone 25 mg PO DAILY 02/22/25 02/22/25 History Ferrous Sulfate [Feosol] 325 mg PO DAILY 02/22/25 02/22/25 History Naftifine 2% Cream 1 applic TOPICAL DAILY 02/22/25 02/22/25 History Pravastatin Sodium [Pravachol] 10 mg PO HS 02/22/25 02/22/25 History atenoloL [Tenormin] 50 mg PO BID 02/22/25 02/22/25 History Allergies Allergy/AdvReac Type Severity Reaction Status Date / Time No Known Allergies Allergy Verified 02/22/25 15:59 Physical Exam Vitals: Vital Signs Temp Pulse Resp BP Pulse Ox 02/22/25 17:00 60 16 118/70 97 02/22/25 16:00 82 20 102/66 99 02/22/25 14:33 98.6 F 60 16 112/78 99 Intake and Output 02/22/25 02/22/25 02/22/25 06:59 14:59 22:59 Other: Weight 72.575 kg 72.575 kg Thrombosis Risk Factor Assmnt - Choose All That Apply Any of the Below Risk Factors Present?: Yes Each Risk Factor Represents 2 Points: Age 61-74 years Other congenital or acquired thrombophilia - If yes, enter type in comment: No Thrombosis Risk Factor Assessment Total Risk Factor Score: 2 Thrombosis Risk Factor Assessment Level: Low Risk
[2025-02-22] MEDS: PRAVASTATIN SODIUM 20 MG TAB PO SCH (21:16)
[2025-02-22] MEDS: atenoloL 50 MG TAB PO SCH (21:16)
[2025-02-22] MEDS: AMIODARONE 100 MG TAB PO SCH (21:16)
[2025-02-22 21:27] LABS: ALT 17 U/L (4-49); AST 19 U/L (17-59); African American GFR (CKD) 80 (>60 ml/min/1.73 sqM); Albumin 3.4 g/dL (3.5-5.0); Albumin/Globulin Ratio 1.6; Alkaline Phosphatase 38 U/L (38-126); Anion Gap 3 mmol/L; Blood Urea Nitrogen 21 mg/dL (9-20); Calcium 8.8 mg/dL (8.4-10.2); Carbon Dioxide 32 mmol/L (22-30); Chloride 98 mmol/L (98-107); Globulin 2.1 g/dL; Glucose 96 mg/dL (74-99); Non-African American GFR(CKD) 69 (>60 ml/min/1.73 sqM); Potassium 4.3 mmol/L (3.5-5.1); Sodium 133 mmol/L (137-145); Total Bilirubin 0.7 mg/dL (0.2-1.3); Total Protein 5.5 g/dL (6.3-8.2)
[2025-02-22] MEDS: ENOXAPARIN 40 MG/0.4 ML SYRINGE SQ SCH (21:33)
[2025-02-22] MEDS: ALPRAZolam 0.25 MG TAB PO PRN (22:38)
--- NOTE | 2025-02-23 09:31 | CT ---
EXAMINATION TYPE: CT angio chest DATE OF EXAM: 02/23/2025 9:21 AM COMPARISON: 02/22/2025 [facility] CT chest abdomen and pelvis. CLINICAL INDICATION: Male, 74 years old with history of Pleuritic chest pain, Pleuritic Chest Pain, TECHNIQUE: CT of the chest is performed on a spiral scan at 2 mm thick sections. Study is performed with intravenous contrast timed for evaluation for pulmonary embolism. This will limit additional po rtions of the evaluation. 10mm MIP images reconstructed by the technologist are reviewed on the comp uter in the coronal and sagittal planes. Contrast used:100 ml mL of Isovue 370 without and with IV Contrast, (none if empty) Oral contrast used: (none if empty) CT DLP: 265.6 mGycm, Automated exposure control for dose reduction was used. FINDINGS: No persistent filling defects are evident to suggest an acute pulmonary embolism. No mediastinal or hilar adenopathy enlarged by CT criteria is evident. The ascending aorta diameter at the level of the main pulmonary artery is 4.3 cm. The main pulmonary artery diameter at the bifurcation is 2.3 cm. There is a moderate pericardial effusion present. Very minimal platelike atelectasis within the dependent lung bases. No suspicious infiltrate or mass is evident No significant coronary artery calcifications. Limited CT sections were through the upper abdomen. Upper abdomen appears unremarkable. IMPRESSION: 1. No acute pulmonary embolism. 2. Moderate pericardial effusion. [facility], , 02/23/2025 9:28 AM
[2025-02-23] MEDS: SPIRONOLACTONE 25 MG TAB PO SCH (09:44)
[2025-02-23] MEDS: ASPIRIN 325 MG TAB PO SCH (09:44)
[2025-02-23] MEDS: FERROUS SULFATE 325 MG TAB PO SCH (09:47)
[2025-02-23 09:52] LABS: LDL Cholesterol,Calculated 58.9 mg/dL (0.0-131.0)
[2025-02-23 14:46] VITALS: TEMP 98.5
[2025-02-23 14:59] VITALS: BP 100/57; RESP 15
--- NOTE | 2025-02-23 15:47 | P.CRDCN ---
History of Present Illness Consult date: 02/23/25 History of present illness: HISTORY OF PRESENTING ILLNESS: 74-year-old with past medical history of sick sinus syndrome status post pacemaker, prior history of ventricular fibrillation, had a heart catheterization in 2022 which showed minimal coronary artery disease with no significant obstruction. He presented to the [facility] because of symptoms of substernal chest pressure which is getting worse when he is standing and sitting forward and gets better when he is resting in the chair or in the bed. It also gets worse when he takes a deep breath. 2 months ago he was having sharp intermittent left- sided chest pain near his nipple area feeling like his pacemaker was excessively stimulating his heart and he could feel the pacemaker pulsations. He was seen in the device office and he was reported that his pacemaker device was working appropriately with appropriate pacing thresholds and sensing. On admission he had a EKG which was normal functioning pacemaker with paced rhythm Basic labs were essentially within normal limits with troponin being negative He had a CTA chest which did not show any evidence of pulmonary embolism. Did show small area of mild calcification in the LAD territory. REVIEW OF SYSTEMS: 14 point review of system is negative except what is mentioned above in HPI. PHYSICAL EXAMINATION: Neck: Brisk carotid upstroke, no jugular venous distention. Lungs: Clear to auscultation. Heart: Regular rate and rhythm, S1-S2, , no murmur or rub. Abdomen: Soft nontender, positive bowel sounds. Extremities: No edema, intact distal pulses. Neuro: Alert, oritented, no focal deficits. Detailed neuro exam was not performed. ASSESSMENT: # Atypical chest pain # Pleuritic type chest pain description # Prior history of sick sinus syndrome status post PPM # History of ventricular tachycardia # Coronary artery calcification PLAN: He is on atenolol 50 mg twice daily, amiodarone 100 mg, eplerenone 25 mg and pravastatin 10 mg daily. I will reduce his Tenormin to 25 mg twice daily because his resting blood pressure has been around 96/60 mmHg. Because of pericardial description of chest pain, I will obtain ESR and CRP levels. ECG is nondiagnostic because of paced rhythm. Give 1 dose of 600 mg ibuprofen, 40 mg Protonix, 0.6 mg of colchicine. If ESR and CRP are negative, will not prescribe him long-term colchicine Once ESR and CRP levels are obtained, patient can be discharged from cardiovascular standpoint. Recommend outpatient follow-up with Dr. Cuellar. Past Medical History Past Medical History: Cancer, Hyperlipidemia, Hypertension Additional Past Medical History / Comment(s): See Dr Cuellar's H&P, Lifevest removed 12-01-2023,hx complete heart block,back/neck pain with herniated discs, bradycardia, basal cell carcinoma removed from nose in June 2020, pacemaker replacement 12-01-2023 History of Any Multi-Drug Resistant Organisms: None Reported Past Surgical History: Orthopedic Surgery, Pacemaker Additional Past Surgical History / Comment(s): left knee arthroscopy times 2,thumb surgery,eric cataracts, pacemaker replacement 12-01-2023 Past Anesthesia/Blood Transfusion Reactions: No Reported Reaction Additional Past Anesthesia/Blood Transfusion Reaction / Comment(s): no hx blood transfusion Type of Cardiac Device: Biventricular Pacemaker, Permanent Pacemaker Device Placement Date:: 12-01-2023 Past Psychological History: Anxiety Smoking Status: Former smoker Past Alcohol Use History: Rare Additional Past Alcohol Use History / Comment(s): quit smoking Past Drug Use History: None Reported - Past Family History Father Family Medical History: Cancer Additional Family Medical History / Comment(s): lung cancer 83 Mother Family Medical History: Cancer Additional Family Medical History / Comment(s): bladder cancer at age 71 Sister(s) Family Medical History: Cancer, Osteoarthritis (OA) Additional Family Medical History / Comment(s): leukemia Brother(s) Family Medical History: Myocardial Infarction ([place]) Additional Family Medical History / Comment(s): at age 68 Medications and Allergies Home Medications Medication Instructions Recorded Confirmed Type RX: ALPRAZolam [Xanax] 0.125 - 0.25 mg PO TID PRN 01/05/21 02/22/25 History Amiodarone [Cordarone] 100 mg PO HS 02/22/25 02/22/25 History Ferrous Sulfate [Feosol] 325 mg PO DAILY 02/22/25 02/22/25 History Naftifine 2% Cream 1 applic TOPICAL DAILY 02/22/25 02/22/25 History Pravastatin Sodium [Pravachol] 10 mg PO HS 02/22/25 02/22/25 History RX: Eplerenone 25 mg PO DAILY 02/22/25 02/22/25 History RX: atenoloL [Tenormin] 50 mg PO BID 02/22/25 02/22/25 History Allergies Allergy/AdvReac Type Severity Reaction Status Date / Time No Known Allergies Allergy Verified 02/22/25 15:59 Physical Exam Vitals: Vital Signs Temp Pulse Pulse Resp BP BP BP 02/23/25 14:58 60 15 100/57 02/23/25 14:45 98.5 F 60 17 91/52 02/23/25 09:20 60 17 115/79 02/23/25 07:00 97.4 F L 60 17 96/60 02/23/25 01:15 98.4 F 60 16 99/63 02/22/25 19:19 97.9 F 60 16 90/47 02/22/25 17:00 60 16 118/70 02/22/25 16:00 82 20 102/66 Pulse Ox 02/23/25 14:58 99 02/23/25 14:45 97 02/23/25 09:20 100 02/23/25 07:00 99 02/23/25 01:15 96 02/22/25 19:19 97 02/22/25 17:00 97 02/22/25 16:00 99 Intake and Output 02/23/25 02/23/25 02/23/25 06:59 14:59 22:59 Intake Total 118 Balance 118 Intake: Oral 118 Other: Voiding Method Toilet # Voids 2 3 Results 02/22/25 20:47 Cardiac Enzymes 02/22/25 02/22/25 02/22/25 Range/Units 15:00 17:33 20:47 AST (17-59) U/L Troponin I <0.012 <0.012 <0.012 (0.000-0.034) ng/mL 02/22/25 Range/Units 20:47 AST 19 (17-59) U/L Troponin I (0.000-0.034) ng/mL Lipids 02/22/25 Range/Units 20:47 Triglycerides 124.00 (0.00-149.00) mg/dL Cholesterol 133.00 (0.00-200.00) mg/dL HDL Cholesterol 49.30 (40.00-60.00) mg/dL Cholesterol/HDL Ratio 2.70 Ratio Comprehensive Metabolic Panel 02/22/25 Range/Units 20:47 Sodium 133 L (137-145) mmol/L Potassium 4.3 (3.5-5.1) mmol/L Chloride 98 (98-107) mmol/L Carbon Dioxide 32 H (22-30) mmol/L BUN 21 H (9-20) mg/dL Creatinine 1.06 (0.66-1.25) mg/dL Glucose 96 (74-99) mg/dL Calcium 8.8 (8.4-10.2) mg/dL AST 19 (17-59) U/L ALT 17 (4-49) U/L Alkaline Phosphatase 38 (38-126) U/L Total Protein 5.5 L (6.3-8.2) g/dL Albumin 3.4 L (3.5-5.0) g/dL Current Medications Generic Name Dose Route Start Last Admin Trade Name Freq PRN Reason Stop Dose Admin Alprazolam 0.25 mg 02/22/25 18:37 02/23/25 06:30 Alprazolam 0.25 Mg Tab PO 0.25 mg TID PRN Administration Anxiety Amiodarone HCl 100 mg 02/22/25 21:00 02/22/25 21:16 Amiodarone 100 Mg Tab PO 100 mg HS RENETTA Administration Aspirin 325 mg 02/23/25 09:00 02/23/25 09:44 Aspirin 325 Mg Tab PO 325 mg DAILY RENETTA Administration Enoxaparin Sodium 40 mg 02/22/25 18:45 02/23/25 09:43 Enoxaparin 40 Mg/0.4 Ml Syringe SQ Not Given DAILY [facility] Ferrous Sulfate 325 mg 02/23/25 09:00 02/23/25 09:47 Ferrous Sulfate 325 Mg Tab PO Not Given DAILY [facility] Nitroglycerin 0.4 mg 02/22/25 15:19 02/23/25 04:53 Nitroglycerin Sl Tabs 0.4 Mg Tab SUBLINGUAL 0.4 mg Q5M PRN Administration Chest Pain Pravastatin Sodium 10 mg 02/22/25 21:00 02/22/25 21:16 Pravastatin Sodium 20 Mg Tab PO 10 mg HS RENETTA Administration Spironolactone 25 mg 02/23/25 09:00 02/23/25 09:44 Spironolactone 25 Mg Tab PO 25 mg BID RENETTA Administration Intake and Output 02/23/25 02/23/25 02/23/25 06:59 14:59 22:59 Intake Total 118 Balance 118 Intake: Oral 118 Other: Voiding Method Toilet # Voids 2 3 02/22/25 20:47
[2025-02-23] MEDS: COLCHICINE 0.6 MG EACH PO ONE (16:28)
[2025-02-23] MEDS: PANTOPRAZOLE 40 MG TABLET PO STA (16:28)
[2025-02-23] MEDS: IBUPROFEN 600 MG TAB PO STA (16:29)
--- NOTE | 2025-02-23 19:01 | P.DS ---
Providers Date of admission: 02/22/25 15:19 Expected date of discharge: 02/23/25 Attending physician: Rommel Bobo Consults: 02/22/25 15:19 Consult Physician Urgent Consulting Provider: [facility] Consult Reason/Comments: Chest pain, pericardial effusion Do you want consulting provider notified?: Yes Primary care physician: Nat Gaffney [facility] Course: Chief Complaint: Chest pressure This is a pleasant 74-year-old patient who follows with Yeimy Deras. Vp Outcomes Dr. Sanders. Patient has a pacemaker for sick sinus syndrome. Has had ventricular fibrillation. Has been on different antiarrhythmics. In September 2023 cardiac catheterization showed minimal disease. Patient is accompanied by his Ajit. For 2 months patient been having sharp pains intermittently in the left anterior chest and the nipple line. He did see pacemaker clinic Jeremy there and that was found to be doing fine. This morning patient noted chest pressure since about 10:00 in the morning. No radiation. No dizziness no lightheadedness. Yesterday patient had lifted about a 30 pound statue to put it up. Above his shoulder level. Otherwise fairly active does 30 minutes of walk about 4 5 times a week. No cough no shortness of breath. The pain is slightly worse when he takes a deep breath. No fever no chills February 23: Doing better. CT chest negative for PE.Patient seen by Dr. Wade from cardiology. Cleared for discharge. He did not think patient had any pericarditis. Dose of Tenormin cut back because of blood pressure running on the lower side Patient follow-up with his half backer Dr. Arvizu. CT chest did show moderate pericardial effusion. Past medical history to include: Hypertension, hyperlipidemia, , basal cell carcinoma, sick sinus syndrome, arrhythmias Social history: Patient lives with his Ajit. 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 Physical examination: VITAL SIGNS: 98.5, 60, 17, 100/57, 99% room air GENERAL: BMI 23, l up in chair comfortable EYES: Pupils equal. Conjunctiva normal. HEENT: External appearance of nose and ears normal, oral cavity grossly normal. NECK: JVD not raised; masses not palpable. HEART: First and second heart sounds are normal; no edema. LUNGS: Respiratory rate normal; clear to auscultation. ABDOMEN: Soft, nontender, liver spleen not palpable, no masses palpable. PSYCH: Alert and oriented x3; mood and affect normal. MUSCULOSKELETAL:No Clubbing/cyanosis;muscles-grossly intact INVESTIGATIONS, reviewed in the clinical context: Chest CTA: Negative for PE. Moderate pericardial effusion CRP 1.7 LDL 58.9 Troponin I less than 0.012 x 2 EKG tracing personally reviewed by me-ventricular paced rhythm 2022 Cardiac catheterization [October 04]: Normal coronaries 2-D echocardiogram: EF 60-65% Assessment and plan: -Anterior chest wall pressure. Present constant since morning till 10 AM. Some reproducible pain. Possibly musculoskeletal. Patient normally limited in lifting weights. But yesterday lifted a statue about 30 pounds over the shoulder. Cardiac catheterization in 2022 showed normal coronaries - History of arrhythmias including ventricular fibrillation - Moderate pericardial effusion - pacemaker for sick sinus syndrome Pacemaker was checked. Recently -Essential hypertension Tenormin 50 mg twice daily -Hyperlipidemia Pravachol 10 mg nightly -Anxiety not otherwise specified Xanax when necessary Disposition: Home Past Medical History Past Medical History: Cancer, Hyperlipidemia, Hypertension Additional Past Medical History / Comment(s): See Dr Cuellar's H&P, Lifevest removed 12-01-2023,hx complete heart block,back/neck pain with herniated discs, bradycardia, basal cell carcinoma removed from nose in June 2020, pacemaker replacement 12-01-2023 History of Any Multi-Drug Resistant Organisms: None Reported Past Surgical History: Orthopedic Surgery, Pacemaker Additional Past Surgical History / Comment(s): left knee arthroscopy times 2,thumb surgery,eric cataracts, pacemaker replacement 12-01-2023 Past Anesthesia/Blood Transfusion Reactions: No Reported Reaction Additional Past Anesthesia/Blood Transfusion Reaction / Comment(s): no hx blood transfusion Type of Cardiac Device: Biventricular Pacemaker, Permanent Pacemaker Device Placement Date:: 12-01-2023 Past Psychological History: Anxiety Smoking Status: Former smoker Past Alcohol Use History: Rare Additional Past Alcohol Use History / Comment(s): quit smoking Past Drug Use History: None Reported Plan - Discharge Summary Discharge Rx Participant: Yes New Discharge Prescriptions: New Aspirin 325 mg PO DAILY #30 tab atenoloL [Tenormin] 25 mg PO BID #60 tab Continue ALPRAZolam [Xanax] 0.125 - 0.25 mg PO TID PRN PRN Reason: Anxiety Eplerenone 25 mg PO DAILY Ferrous Sulfate [Iron (65 MG Elemental)] 325 mg PO DAILY Naftifine 2% Cream 1 applic TOPICAL DAILY Pravastatin Sodium [Pravachol] 10 mg PO HS Amiodarone [Cordarone] 100 mg PO HS Discontinued atenoloL [Tenormin] 50 mg PO BID Discharge Medication List ALPRAZolam [Xanax] 0.125 - 0.25 mg PO TID PRN 01/05/21 [History] Amiodarone [Cordarone] 100 mg PO HS 02/22/25 [History] Eplerenone 25 mg PO DAILY 02/22/25 [History] Ferrous Sulfate [Iron (65 MG Elemental)] 325 mg PO DAILY 02/22/25 [History] Naftifine 2% Cream 1 applic TOPICAL DAILY 02/22/25 [History] Pravastatin Sodium [Pravachol] 10 mg PO HS 02/22/25 [History] Aspirin 325 mg PO DAILY #30 tab 02/23/25 [Rx] atenoloL [Tenormin] 25 mg PO BID #60 tab 02/23/25 [Rx] Follow up Appointment(s)/Referral(s): Joshua Cuellar MD [STAFF PHYSICIAN] - 1 Week Nat Gaffney DO [Primary Care Provider] - 1-2 days Patient Instructions/Handouts: Chest Pain (DC)
[2025-02-23] MEDS ORDERED: atenoloL 25 MG TAB PO SCH (21:00)
--- NOTE | 2025-02-25 10:11 | CA ---
Transthoracic Echo Report Name: Monty Weller Age: 74 Gender: M : 1950 Exam Date: 02/22/2025 16:24 Exam Location: [facility] Ht (in): 70 Wt (lb): 160 Ordering Physician: Milan Cosme MD Attending/Referring Phys: Customer Care Team Coach Jessie Chaney RDCS Procedure CPT: Indications: Chest Pain Cardiac Hx: Technical Quality: Fair Contrast 1: Total Dose (mL): Contrast 2: Total Dose (mL): MEASUREMENTS (Male / Female) Normal Values 2D ECHO LV Diastolic Diameter PLAX 4.0 cm 4.2 - 5.9 / 3.9 - 5.3 cm LV Systolic Diameter PLAX 3.6 cm IVS Diastolic Thickness 1.1 cm 0.6 - 1.0 / 0.6 - 0.9 cm LVPW Diastolic Thickness 0.9 cm 0.6 - 1.0 / 0.6 - 0.9 cm LV Relative Wall Thickness 0.5 LVOT Diameter 2.4 cm LV Diastolic Volume MOD BP 137.8 cm??? 67 - 155 / 56 - 104 cm??? LV Systolic Volume MOD BP 59.5 cm??? 22 - 58 / 19 - 49 cm??? LV Ejection Fraction MOD BP 56.8 % >= 55 % LV Cardiac Index MOD BP 2480.3 cm???/min???m??? LV Diastolic Volume MOD 4C 150.9 cm??? LV Systolic Volume MOD 4C 59.1 cm??? LV Ejection Fraction MOD 4C 60.9 % LV Cardiac Index MOD 4C 2909.5 cm???/min???m??? LV Diastolic Length 4C 9.7 cm LV Systolic Length 4C 7.8 cm LV Diastolic Volume MOD 2C 111.6 cm??? LV Systolic Volume MOD 2C 51.6 cm??? LV Ejection Fraction MOD 2C 53.7 % LV Cardiac Index MOD 2C 1898.4 cm???/min???m??? LV Diastolic Length 2C 8.5 cm LV Systolic Length 2C 6.7 cm LA Volume 43.8 cm??? 18 - 58 / 22 - 52 cm??? LA Volume Index 23.1 cm???/m??? 16 - 28 cm???/m??? Ascending Aorta Diameter 4.4 cm DOPPLER AV Peak Velocity 114.8 cm/s AV Peak Gradient 5.3 mmHg AV Mean Velocity 87.3 cm/s AV Mean Gradient 3.2 mmHg AV Velocity Time Integral 22.8 cm AI Peak Velocity 311.0 cm/s AI Peak Gradient 38.7 mmHg LVOT Peak Velocity 93.0 cm/s LVOT Peak Gradient 3.5 mmHg LVOT Velocity Time Integral 19.2 cm LVOT Stroke Volume 90.1 cm??? LVOT Stroke Volume Index 47.4 ml/m??? LVOT Cardiac Index 2852.2 cm???/min???m??? AV Area Cont Eq vti 4.0 cm??? AV Area Cont Eq pk 3.8 cm??? MV Area PHT 3.4 cm??? Mitral E Point Velocity 50.5 cm/s Mitral A Point Velocity 65.4 cm/s Mitral E to A Ratio 0.8 MV Deceleration Time 223.8 ms TR Peak Velocity 189.3 cm/s TR Peak Gradient 14.3 mmHg Right Atrial Pressure 15.0 mmHg Pulmonary Artery Systolic Pressu 29.3 mmHg Right Ventricular Systolic Press 29.3 mmHg FINDINGS Left Ventricle Left ventricular ejection fraction is estimated at 50-55 %. Mildly increased septal wall thickness. Mildly increased left ventricular systolic volume. No obvious regional wall motion abnormalities. Right Ventricle Normal right ventricular size and function. Right ventricular systolic pressure within normal limits. Right Atrium Normal right atrial size. Catheter/pacemaker wire in the right atrial cavity. Left Atrium Normal left atrial size. Mitral Valve Structurally normal mitral valve. No mitral stenosis, regurgitation or prolapse. Aortic Valve Trileaflet aortic valve. No aortic stenosis. [id number] aortic regurgitation. Tricuspid Valve Structurally normal tricuspid valve. No tricuspid stenosis. Mild tricuspid regurgitation. Pulmonic Valve Pulmonic valve not well visualized. No pulmonic stenosis. No pulmonic regurgitation. Pericardium Trace pericardial effusion. Aorta Aortic annulus normal. Moderately dilated proximal ascending aorta (tube). CONCLUSIONS Indication: Chest pain 2D echo shows normal LV size and function mild LVH with a mildly dilated ventricle with a left ventricular ejection fraction of 50 to 55% Normal RV size and function Aortic root enlargement Previewed by: Dr. Joshua Cuellar MD (Electronically Signed) Final Date: 25 February 2025 10:10
== END 2025-02-23 18:10 | disposition home or self-care (01) ==
LOC: EC 14:26 → 6NMEDSUR 15:19
PROVIDERS: ADMIT Hospitalist; ATTEND Hospitalist
DX: R07.89 Other chest pain (principal); I31.39 Other pericardial effusion (noninflammatory); I25.10 Atherosclerotic heart disease of native coronary artery without angina pectoris; I10 Essential (primary) hypertension; E78.5 Hyperlipidemia, unspecified; F41.9 Anxiety disorder, unspecified; I49.01 Ventricular fibrillation; I49.5 Sick sinus syndrome; Z85.828 Personal history of other malignant neoplasm of skin; Z87.891 Personal history of nicotine dependence; Z95.810 Presence of automatic (implantable) cardiac defibrillator; Z79.82 Long term (current) use of aspirin; Z79.899 Other long term (current) drug therapy
CPT/HCPCS: 99285; 36415; 93005; 93306; 80061; 80053; 85652; 84484; 86140; 71275; G0378 ×2; Q9967

== ENCOUNTER 2025-03-21 13:52 | Emergency (ER) | payer MEDICARE ==
[2025-03-21 14:08] VITALS: PULSE 60
--- NOTE | 2025-03-21 15:39 | ED ---
General Adult HPI - General Chief complaint: Recheck/Abnormal Lab/Rx Stated complaint: Lump on L side of head Time Seen by Provider: 03/21/25 15:01 Source: patient Mode of arrival: ambulatory Limitations: no limitations - History of Present Illness Initial comments: Patient is a 74-year-old gentleman past medical history defibrillator in place for ventricular arrhythmia presenting today for left-sided neck pain. Patient states started last night as dull in nature and intermittent. He is concerned about his carotid artery and so came to emergency department to have an ultrasound done. Patient specifically request not to have a CT angiogram as he had a CTA done 2 weeks ago for PE. Patient denies any recent neck trauma, neck manipulation, car accidents. Feels like he can feel a small mass of the left side of his neck. He denies any new neurologic symptoms. Denies dental pain, ear pain fevers or chills. - Related Data Home Medications Medication Instructions Recorded Confirmed ALPRAZolam [Xanax] 0.125 - 0.25 mg PO TID PRN 01/05/21 02/22/25 Amiodarone [Cordarone] 100 mg PO HS 02/22/25 02/22/25 Eplerenone 25 mg PO DAILY 02/22/25 02/22/25 Ferrous Sulfate [Iron (65 MG 325 mg PO DAILY 02/22/25 02/22/25 Elemental)] Naftifine 2% Cream 1 applic TOPICAL DAILY 02/22/25 02/22/25 Pravastatin Sodium [Pravachol] 10 mg PO HS 02/22/25 02/22/25 Previous Rx's Medication Instructions Recorded Aspirin 325 mg PO DAILY #30 tab 02/23/25 atenoloL [Tenormin] 25 mg PO BID #60 tab 02/23/25 Allergies Allergy/AdvReac Type Severity Reaction Status Date / Time No Known Allergies Allergy Verified 03/21/25 14:08 Review of Systems ROS Statement: Those systems with pertinent positive or pertinent negative responses have been documented in the HPI. ROS Other: All systems not noted in ROS Statement are negative. Past Medical History Past Medical History: Cancer, Hyperlipidemia, Hypertension Additional Past Medical History / Comment(s): See Dr Cuellar's H&P, Lifevest removed 12-01-2023,hx complete heart block,back/neck pain with herniated discs, bradycardia, basal cell carcinoma removed from nose in June 2020, pacemaker replacement 12-01-2023 History of Any Multi-Drug Resistant Organisms: None Reported Past Surgical History: Orthopedic Surgery, Pacemaker Additional Past Surgical History / Comment(s): left knee arthroscopy times 2,thumb surgery,eric cataracts, pacemaker replacement 12-01-2023 Past Anesthesia/Blood Transfusion Reactions: No Reported Reaction Additional Past Anesthesia/Blood Transfusion Reaction / Comment(s): no hx blood transfusion Type of Cardiac Device: Biventricular Pacemaker, Permanent Pacemaker Device Placement Date:: 12-01-2023 Past Psychological History: Anxiety Smoking Status: Former smoker Past Alcohol Use History: Rare Past Drug Use History: None Reported - Past Family History Father Family Medical History: Cancer Additional Family Medical History / Comment(s): lung cancer 83 Mother Family Medical History: Cancer Additional Family Medical History / Comment(s): bladder cancer at age 71 Sister(s) Family Medical History: Cancer, Osteoarthritis (OA) Additional Family Medical History / Comment(s): leukemia Brother(s) Family Medical History: Myocardial Infarction ([place]) Additional Family Medical History / Comment(s): at age 68 General Exam - General Exam Comments Initial Comments: PE: CONSTITUTIONAL: [no apparent distress, well appearing] SKIN: [warm, dry, no jaundice, hives or petechiae] EYES:[ pupils are equally round, extraocular movements intact without nystagmus, clear conjunctiva, non-icteric sclera] HENT: [normocephalic, atraumatic, moist mucus membranes, oropharynx clear without exudates] NECK: , [Full range of motion, normal appearance, no carotid bruits, no thrills, cervical adenopathy] PULMONARY: [clear to auscultation without wheezes, rhonchi, or rales, normal excursion, no accessory muscle use and no stridor] CARDIOVASCULAR:[ regular rate, rhythm, normal S1 and S2. No appreciated murmurs, rubs or gallops. Strong radial pulses with intact distal perfusion. No lower extremity edema] GASTROINTESTINAL: [soft, active bowel sounds throughout, non-tender, non- distended, no palpable masses, no rebound or guarding. No hepatosplenomegaly] GENITOURINARY: MUSCULOSKELETAL: [Extremities have no gross deformity, no edema, redness, or swelling. No calf swelling ] NEUROLOGIC: [_a/o x 3, GCS 15, normal mentation and speech. Moves all extremities x 4 without motor or sensory deficit] PSYCHIATRIC:[ _normal mood and affect, thought process is clear and linear] Limitations: no limitations Course Vital Signs 03/21/25 14:02 Temperature 97.5 F L Pulse Rate 60 Respiratory 16 Rate Blood Pressure 110/66 O2 Sat by Pulse 98 Oximetry Medical Decision Making - Medical Decision Making Was pt. sent in by a medical professional or institution (, LUTHER, TEST EVALUATOR, urgent care, hospital, or detention...) When possible be specific @ -[No] Did you speak to anyone other than the patient for history (EMS, parent, family, police, friend...)? What history was obtained from this source @ -[No] Did you review nursing and triage notes (agree or disagree)? Why? @ -[I reviewed nursing and triage notes] Were old charts reviewed (outside hosp., previous admission, EMS record, old EKG, old radiological studies, urgent care reports/EKG's, detention records)? Report findings @ -[Medical records reviewed] Differential Diagnosis (chest pain, altered mental status, abdominal pain women, abdominal pain men, vaginal bleeding, weakness, fever, dyspnea, syncope, headache, dizziness, GI bleed, back pain, seizure, CVA, palpatations, mental health, musculoskeletal)? @ -[not applicable] EKG interpreted by me (3pts min.). @ -[As above] X-rays interpreted by me (1pt min.). @ -[None done] CT interpreted by me (1pt min.). @ -[None done] U/S interpreted by me (1pt. min.). @Personally reviewed ultrasound I see no evidence of occlusion or dissection or aneurysm What testing was considered but not performed or refused? (CT, X-rays, U/S, labs)? Why? @ -[None] What meds were considered but not given or refused? Why? @ -[None] Did you discuss the management of the patient with other professionals (professionals i.e. LUTHER Kumar, TEST EVALUATOR, lab, RT, psych nurse, manager social services, grant manager, teacher, consular officer, disability case manager)? Give summary @ -[No] Was smoking cessation discussed for >3mins.? @ -[No] Was critical care preformed (if so, how long)? @ -[No] Were there social determinants of health that impacted care today? How? (Homelessness, low income, unemployed, alcoholism, drug addiction, t ransportation, low edu. Level, literacy, decrease access to med. care, fpc, rehab)? @ -[No] Was there de-escalation of care discussed even if they declined (Discuss DNR or withdrawal of care, Hospice)? @ -[No] What co-morbidities impacted this encounter? (DM, HTN, Smoking, COPD, CAD, Cancer, CVA, ARF, Chemo, Hep., AIDS, mental health diagnosis, sleep apnea, morbid obesity)? @ -[None] Was patient admitted / discharged? Hospital course, mention meds given and route, prescriptions, significant lab abnormalities, going to OR and other pertinent info. @ -[hospital course] this is a pleasant 74 gentleman presenting today for left- sided neck discomfort that began last night. Patient is very worried about his carotid artery and request an ultrasound. Physical exam is reassuring with no carotid bruits or palpable thrills. Cervical adenopathy is noted without additional signs of infection. Plan for ultrasound of the carotid Ultrasound carotid artery showed no occlusion. Undiagnosed new problem with uncertain prognosis? @ -[No] Drug Therapy requiring intensive monitoring for toxicity (Heparin, Nitro, Insulin, Cardizem)? @ -[No] Were any procedures done? @ -[No] Diagnosis/symptom? @ left sided neck pain, cervical adenopathy Acute, or Chronic, or Acute on Chronic? @acute Uncomplicated (without systemic symptoms) or Complicated (systemic symptoms)? uncomplicated Side effects of treatment? @ -[No] Exacerbation, Progression, or Severe Exacerbation? @ -[No] Poses a threat to life or bodily function? How? (Chest pain, [place], [place], pneumonia, PE, COPD, DKA, ARF, appy, cholecystitis, CVA, Diverticulitis, Homicidal, Suicidal, threat to staff... and all critical care pts) @ -[No] Disposition Clinical Impression: Neck pain on left side, Cervical adenopathy Disposition: HOME SELF-CARE Condition: Good Instructions (If sedation given, give patient instructions): Lymphadenopathy (ED) Additional Instructions: Every disease is a spectrum and a small chance still exists that a serious condition could develop, for this reason, please monitor yourself closely for new, changing or worsening symptoms, symptoms that do not begin to improve over the course of the next 72 hours, new swelling, severe pain, difficulty breathing, strokelike symptoms such as sudden changes in vision, weakness, numbness or slurred speech, severe headache, [fever], inability to tolerate/keep down fluids or your medications, inability to follow up with outpatient pr oviders as instructed and should you experience these symptoms or should you have any further concerns for your wellbeing please return to the ED or call 911 immediately. PLEASE call your primary care physician as soon as possible to arrange / discuss plan for followup appointment. Appointment in the next 1-3 days is strongly encouraged if possible. Please follow-up with your primary care provider for recheck your neck pain and lymph nodes within 1 week. PLEASE let us know here before you leave if there is anything further we can do to be of any assistance. Take care and feel Better! Is patient prescribed a controlled substance at d/c from ED?: No Referrals: Nat Gaffney DO [Primary Care Provider] - 1-2 days
--- NOTE | 2025-03-21 16:29 | US ---
EXAMINATION TYPE: US carotid duplex BILAT DATE OF EXAM: 03/21/2025 COMPARISON: US 2010 CLINICAL INDICATION: Male, 74 years old with history of pain L. up neck, pt worried about carotid; TECHNIQUE: Grayscale, color Doppler and spectral Doppler evaluation of the bilateral carotid systems and vertebral arteries. Indirect Doppler criteria was utilized. FINDINGS: EXAM MEASUREMENTS: RIGHT: Peak Systolic Velocity (PSV) cm/sec ----- Right CCA: 63.3 ----- Right ICA: 70.6 ----- Right ECA: 73.6 ICA/CCA ratio: 1.1 RIGHT: End Diastole cm/sec ----- Right CCA: 12.7 ----- Right ICA: 24.5 ----- Right ECA: 6.9 LEFT: Peak Systolic Velocity (PSV) cm/sec ----- Left CCA: 65.5 ----- Left ICA: 71.5 ----- Left ECA: 68.9 ICA/CCA ratio: 1.1 LEFT: End Diastole cm/sec ----- Left CCA: 12.8 ----- Left ICA: 20.2 ----- Left ECA: 7.4 VERTEBRALS (direction of flow): Right Vertebral: Antegrade Left Vertebral: Antegrade Rhythm: Normal IMPRESSION: No hemodynamically significant internal carotid artery stenosis on either side. Criteria for Assigning % of Stenosis / Diameter reduction (Estimation based on the indirect measurements of the internal carotid artery velocities (ICA PSV). 1. Normal (no stenosis)=ICA PSV < 180 cm/s: ratio < 2.0: ICA EDV<40 cm/s. 2. Less than 50% stenosis=ICA PSV < 180 cm/s: ratio < 2.0: ICA EDV<40 cm/s. 3. 50 to 69% stenosis=ICA PSV of 180 to 230 cm/s: ration 2.0 ? 4.0: ICA EDV 40-100 cm/s. PSV 125-180 cm/sec and ICA/CCA PSV Ratio ? 2.0 is also consistent with 50-69% stenosis 4. Greater than 70% stenosis to near occlusion= ICA PSV > 230 cm/s: ratio > 4.0: ICA EDV > 100 cm/s. 5. Near occlusion= ICA PSV velocities may be low or undetectable: variable ratio and ICA EDV. 6. Total occlusion=unable to detect flow. [facility], , 03/21/2025 4:27 PM
[2025-03-21 17:15] VITALS: BP 125/68; RESP 20; TEMP 98
== END 2025-03-21 17:15 | disposition home or self-care (01) ==
LOC: EC 13:52
DX: M54.2 Cervicalgia (principal); R59.0 Localized enlarged lymph nodes; Z87.891 Personal history of nicotine dependence
CPT/HCPCS: 93880; 99284

== ENCOUNTER 2025-04-08 08:34 | Emergency (ER) | payer MEDICARE ==
--- NOTE | 2025-04-08 09:07 | ED ---
General Adult HPI - General Chief complaint: Chest Pain Stated complaint: chest pain Time Seen by Provider: 04/08/25 08:45 Source: patient Mode of arrival: ambulatory Limitations: no limitations - History of Present Illness Initial comments: Dictation was produced using [employer] dictation software. please excuse any grammatical, word or spelling errors. Chief Complaint: 74-year-old male with chest pain History of Present Illness: Male presents to the emergency department chest pain. Patient states that it is like a pressure to his substernal area not rating not associate with diaphoresis or nausea. States that he thinks that this might be related to his hiatal hernia because before it started he ate a dry sweet potato and had to choke it down. Patient does have a history of coronary artery disease. Denies that his symptoms are worse with deep inspiration. Not different with eating or drinking. The ROS documented in this emergency department record has been reviewed and confirmed by me. Those systems with pertinent positive or negative responses have been documented in the HPI. All other systems are other negative and/or noncontributory. - Related Data Home Medications Medication Instructions Recorded Confirmed ALPRAZolam [Xanax] 0.125 - 0.25 mg PO TID PRN 01/05/21 04/08/25 Amiodarone [Cordarone] 100 mg PO HS 02/22/25 04/08/25 Eplerenone 25 mg PO DAILY 02/22/25 04/08/25 Ferrous Sulfate [Iron (65 MG 325 mg PO DAILY 02/22/25 04/08/25 Elemental)] Naftifine 2% Cream 1 applic TOPICAL DAILY 02/22/25 04/08/25 Pravastatin Sodium [Pravachol] 10 mg PO HS 02/22/25 04/08/25 atenoloL [Tenormin] 25 mg PO HS 04/08/25 04/08/25 atenoloL [Tenormin] 50 mg PO DAILY 04/08/25 04/08/25 Previous Rx's Medication Instructions Recorded Aspirin 325 mg PO DAILY #30 tab 02/23/25 Allergies Allergy/AdvReac Type Severity Reaction Status Date / Time No Known Allergies Allergy Verified 04/08/25 10:34 Review of Systems ROS Statement: Those systems with pertinent positive or pertinent negative responses have been documented in the HPI. ROS Other: All systems not noted in ROS Statement are negative. Past Medical History Past Medical History: Cancer, Hyperlipidemia, Hypertension Additional Past Medical History / Comment(s): See Dr Cuellar's H&P, Lifevest removed 12-01-2023,hx complete heart block,back/neck pain with herniated discs, bradycardia, basal cell carcinoma removed from nose in June 2020, pacemaker replacement 12-01-2023 History of Any Multi-Drug Resistant Organisms: None Reported Past Surgical History: Orthopedic Surgery, Pacemaker Additional Past Surgical History / Comment(s): left knee arthroscopy times 2,thumb surgery,eric cataracts, pacemaker replacement 12-01-2023 Past Anesthesia/Blood Transfusion Reactions: No Reported Reaction Additional Past Anesthesia/Blood Transfusion Reaction / Comment(s): no hx blood transfusion Type of Cardiac Device: Biventricular Pacemaker, Permanent Pacemaker Device Placement Date:: 12-01-2023 Past Psychological History: Anxiety Smoking Status: Former smoker Past Alcohol Use History: Rare Past Drug Use History: None Reported - Past Family History Father Family Medical History: Cancer Additional Family Medical History / Comment(s): lung cancer 83 Mother Family Medical History: Cancer Additional Family Medical History / Comment(s): bladder cancer at age 71 Sister(s) Family Medical History: Cancer, Osteoarthritis (OA) Additional Family Medical History / Comment(s): leukemia Brother(s) Family Medical History: Myocardial Infarction (NM) Additional Family Medical History / Comment(s): at age 68 General Exam - General Exam Comments Initial Comments: PHYSICAL EXAM: General Impression: Alert and oriented x3, not in acute distress HEENT: Normocephalic atraumatic, extra-ocular movements intact, pupils equal and reactive to light bilaterally, mucous membranes moist. Cardiovascular: Heart regular rate and rhythm Chest: Able to complete full sentences, no retractions, no tachypnea Abdomen: abdomen soft, non-tender, non-distended, no organomegaly Musculoskeletal: Pulses present and equal in all extremities, no peripheral edema Motor: no focal deficits noted Neurological: CN II-XII grossly intact, no focal motor or sensory deficits noted Skin: Intact with no visualized rashes Psych: Normal affect and mood Limitations: no limitations Course Vital Signs 04/08/25 04/08/25 08:38 11:31 Temperature 98.7 F Pulse Rate 66 63 Respiratory 18 16 Rate Blood Pressure 142/89 107/75 O2 Sat by Pulse 98 98 Oximetry - Reevaluation(s) Reevaluation #1: 04/08/25 11:07 Patient a.m. states that he thinks that his symptoms were exacerbated after he mowed the lawn from pulling on the cord to start the motor. Patient offered observation admission for cardiology consultation cardiac nurse he refused prefer to have second troponin drawn determine disposition plan EKG Findings - EKG Comments: EKG Findings:: My EKG interpretation: Ventricular rate 65, atrial and ventricular paced rhythm.. 196, QS 157, QTc 453. No VA prolongation, no QTC prolongation, no ST or T-wave changes noted. Overall, this EKG is unremarkable Medical Decision Making - Medical Decision Making Was pt. sent in by a medical professional or institution (, PA, SHEET METAL JOURNEYMAN, urgent care, hospital, or care home...) When possible be specific @ -No Did you speak to anyone other than the patient for history (EMS, parent, family, police, friend...)? What history was obtained from this source @ -No Did you review nursing and triage notes (agree or disagree)? Why? @ -I reviewed and agree with nursing and triage notes Were old charts reviewed (outside hosp., previous admission, EMS record, old EKG, old radiological studies, urgent care reports/EKG's, care home records)? Report findings @ -No old charts were reviewed Differential Diagnosis (chest pain, altered mental status, abdominal pain women, abdominal pain men, vaginal bleeding, musculoskeletal, weakness, fever, dyspnea, syncope, headache, dizziness, GI bleed, back pain, seizure, CVA, palpatations, mental health)? @ -Differential Chest Pain: Stable Angina, Unstable Angina, STEMI, NSTEMI Aortic Dissection, Pneumothorax, Musculoskeletal, Esophageal Spasm GERD, Cholecystitis, Pancreatitis, Zoster, this is not meant to be an all-inclusive list. EKG interpreted by me (3pts min.). @ -See above X-rays interpreted by me (1pt min.). @ -Chest x-ray is nonacute CT interpreted by me (1pt min.). @ -None done U/S interpreted by me (1pt. min.). @ -None done What testing was considered but not performed or refused? (CT, X-rays, U/S, labs)? Why? @ -None What meds were considered but not given or refused? Why? @ -None Was smoking cessation discussed for >3mins.? @ -No Were there social determinants of health that impacted care today? How? (Homelessness, low income, unemployed, alcoholism, drug addiction, transportation, low edu. Level, literacy, decrease access to med. care, senior living, rehab)? @ -No Was there de-escalation of care discussed even if they declined (Discuss DNR or withdrawal of care, Hospice)? DNR status @ -No What co-morbidities impacted this encounter? (DM, HTN, Smoking, COPD, CAD, Cancer, CVA, ARF, Chemo, Hep., AIDS, mental health diagnosis, sleep apnea, morbid obesity)? @ -Coronary artery disease Was patient admitted / discharged? Hospital course, mention meds given and route, prescriptions, significant lab abnormalities, going to OR and other pertinent info. @ -74-year-old male with atypical chest pain typical features he does have history of coronary artery disease. Vital signs stable. Patient does report a musculoskeletal component. Laboratory evaluation obtained. Serial troponins negative. Patient's pain improved with Toradol. Patient offered observation admission however would prefer to be discharged. To follow-up closely with manager mobile and primary care doctor. Did you discuss the management of the patient with other professionals (professionals i.e. , PA, SHEET METAL JOURNEYMAN, lab, RT, psych nurse, health care social worker, machining manager, teacher, aviation ordnance officer, showcase trimmer)? Give summary @ -No Was critical care preformed (if so, how long)? @ -No Undiagnosed new problem with uncertain prognosis? @ -No Drug Therapy requiring intensive monitoring for toxicity (Heparin, Nitro, Insulin, Cardizem)? @ -No Were any procedures done? @ -No Diagnosis/symptom? Acute, or Chronic, or Acute on Chronic? Uncomplicated (without systemic symptoms) or Complicated (systemic symptoms)? @ -Chest strain Side effects of treatment? @ -No Exacerbation, Progression, or Severe Exacerbation? @ -No Poses a threat to life or bodily function? How? (Chest pain, USA, NM, pneumonia, PE, COPD, DKA, ARF, appy, cholecystitis, CVA, Diverticulitis, Homicidal, Suicidal, threat to staff... and all critical care pts) @ -No - Lab Data Result diagrams: 04/08/25 10:03 04/08/25 10:03 Lab Results 04/08/25 04/08/25 04/08/25 Range/Units 10:03 10:03 10:03 WBC 6.15 (4.50-10.00) 10*3/uL RBC 4.51 (4.40-5.60) 10*6/uL Hgb 15.8 (13.0-17.0) g/dL Hct 44.0 (39.6-50.0) % MCV 97.6 H (80.0-97.0) fL MCH 35.0 H (27.0-32.0) pg MCHC 35.9 (32.0-37.0) g/dL Plt Count 180 (140-440) 10*3/uL MPV 8.9 L (9.5-12.2) fL Immature Gran % (Auto) 0.3 % Neutrophils % 83.3 % Lymphocytes % 8.1 % Monocytes % 7.5 % Eosinophils % 0.3 % Basophils % 0.5 % Immature Gran # 0.02 (0.00-0.04) 10*3/uL Neutrophils # 5.12 (1.80-7.70) 10*3/uL Lymphocytes # 0.50 L (0.90-5.00) 10*3/uL Monocytes # 0.46 (0.20-1.00) 10*3/uL Eosinophils # 0.02 L (0.04-0.35) 10*3/uL Basophils # 0.03 (0.00-0.10) 10*3/uL PT 11.0 (10.0-12.5) sec INR 1.0 (<1.2) APTT 28.4 (22.0-30.0) sec Sodium 133 L (137-145) mmol/L Potassium 4.4 (3.5-5.1) mmol/L Chloride 98 (98-107) mmol/L Carbon Dioxide 28 (22-30) mmol/L Anion Gap 7 mmol/L BUN 13 (9-20) mg/dL Creatinine 0.84 (0.66-1.25) mg/dL Est GFR (CKD-EPI)AfAm >90 (>60 ml/min/1.73 sqM) Est GFR (CKD-EPI)NonAf 86 (>60 ml/min/1.73 sqM) Glucose 102 H (74-99) mg/dL Calcium 9.2 (8.4-10.2) mg/dL Magnesium 2.2 (1.6-2.3) mg/dL Total Bilirubin 1.1 (0.2-1.3) mg/dL AST 28 (17-59) U/L ALT 22 (4-49) U/L Alkaline Phosphatase 55 (38-126) U/L Troponin I (0.000-0.034) ng/mL Total Protein 6.9 (6.3-8.2) g/dL Albumin 4.4 (3.5-5.0) g/dL 04/08/25 04/08/25 Range/Units 10:03 13:09 WBC (4.50-10.00) 10*3/uL RBC (4.40-5.60) 10*6/uL Hgb (13.0-17.0) g/dL Hct (39.6-50.0) % MCV (80.0-97.0) fL MCH (27.0-32.0) pg MCHC (32.0-37.0) g/dL Plt Count (140-440) 10*3/uL MPV (9.5-12.2) fL Immature Gran % (Auto) % Neutrophils % % Lymphocytes % % Monocytes % % Eosinophils % % Basophils % % Immature Gran # (0.00-0.04) 10*3/uL Neutrophils # (1.80-7.70) 10*3/uL Lymphocytes # (0.90-5.00) 10*3/uL Monocytes # (0.20-1.00) 10*3/uL Eosinophils # (0.04-0.35) 10*3/uL Basophils # (0.00-0.10) 10*3/uL PT (10.0-12.5) sec INR (<1.2) APTT (22.0-30.0) sec Sodium (137-145) mmol/L Potassium (3.5-5.1) mmol/L Chloride (98-107) mmol/L Carbon Dioxide (22-30) mmol/L Anion Gap mmol/L BUN (9-20) mg/dL Creatinine (0.66-1.25) mg/dL Est GFR (CKD-EPI)AfAm (>60 ml/min/1.73 sqM) Est GFR (CKD-EPI)NonAf (>60 ml/min/1.73 sqM) Glucose (74-99) mg/dL Calcium (8.4-10.2) mg/dL Magnesium (1.6-2.3) mg/dL Total Bilirubin (0.2-1.3) mg/dL AST (17-59) U/L ALT (4-49) U/L Alkaline Phosphatase (38-126) U/L Troponin I <0.012 <0.012 (0.000-0.034) ng/mL Total Protein (6.3-8.2) g/dL Albumin (3.5-5.0) g/dL Disposition Clinical Impression: Chest pain Disposition: HOME SELF-CARE Condition: Good Instructions (If sedation given, give patient instructions): Costochondritis (ED) Is patient prescribed a controlled substance at d/c from ED?: No Referrals: Nat Gaffney DO [Primary Care Provider] - 1-2 days Time of Disposition: 14:14
--- NOTE | 2025-04-08 09:31 | XR ---
EXAMINATION TYPE: XR chest 2V DATE OF EXAM: 04/08/2025 9:08 AM COMPARISON: 12/02/2023 CLINICAL INDICATION: Male, 74 years old with history of Chest Pain, , TECHNIQUE: PA and lateral views FINDINGS: The cardiomediastinal silhouette, aorta, and pulmonary vasculature are within normal limits. Lungs an d pleural spaces are clear. Left anterior chest wall AICD generator with right atrial, two right vent ricular, and coronary sinus leads. IMPRESSION: No acute cardiopulmonary process. [facility], , 04/08/2025 9:28 AM
[2025-04-08 10:09] LABS: Basophils # (A) 0.03 10*3/uL (0.00-0.10); Basophils % (A) 0.5 %; Eosinophils # (A) 0.02 10*3/uL (0.04-0.35); Eosinophils % (A) 0.3 %; HGB 15.8 g/dL (13.0-17.0); Lymphocytes % (A) 8.1 %; MCHC 35.9 g/dL (32.0-37.0); MCV 97.6 fL (80.0-97.0); Mean Platelet Volume 8.9 fL (9.5-12.2); Monocytes # (A) 0.46 10*3/uL (0.20-1.00); Monocytes % (A) 7.5 %; Neutrophils # (A) 5.12 10*3/uL (1.80-7.70); Neutrophils % (A) 83.3 %; Platelet Count 180 10*3/uL (140-440); RBC 4.51 10*6/uL (4.40-5.60); RDW 11.4 % (11.5-14.5); WBC 6.15 10*3/uL (4.50-10.00)
[2025-04-08 10:18] LABS: Partial Thromboplastin Time 28.4 sec (22.0-30.0)
[2025-04-08 10:19] LABS: ALT 22 U/L (4-49); AST 28 U/L (17-59); African American GFR (CKD) >90 (>60 ml/min/1.73 sqM); Albumin 4.4 g/dL (3.5-5.0); Alkaline Phosphatase 55 U/L (38-126); Anion Gap 7 mmol/L; Blood Urea Nitrogen 13 mg/dL (9-20); Calcium 9.2 mg/dL (8.4-10.2); Carbon Dioxide 28 mmol/L (22-30); Chloride 98 mmol/L (98-107); Glucose 102 mg/dL (74-99); Magnesium 2.2 mg/dL (1.6-2.3); Non-African American GFR(CKD) 86 (>60 ml/min/1.73 sqM); Potassium 4.4 mmol/L (3.5-5.1); Sodium 133 mmol/L (137-145); Total Bilirubin 1.1 mg/dL (0.2-1.3); Total Protein 6.9 g/dL (6.3-8.2)
[2025-04-08] MEDS: KETOROLAC 15 MG/ML 1 ML VIAL IVP STA (11:32)
[2025-04-08] MEDS: ASPIRIN 81 MG PO STA (14:19)
[2025-04-08 14:23] VITALS: BP 123/76; PULSE 61; RESP 18; TEMP 98.8
== END 2025-04-08 14:30 | disposition home or self-care (01) ==
LOC: EC 08:34
DX: S29.011A Strain of muscle and tendon of front wall of thorax, initial encounter (principal); I11.9 Hypertensive heart disease without heart failure; I25.10 Atherosclerotic heart disease of native coronary artery without angina pectoris; Z87.891 Personal history of nicotine dependence; X58.XXXA Exposure to other specified factors, initial encounter
CPT/HCPCS: 36415; 93005; 80053; 83735; 84484; 85025; 85610; 85730; 71046; 99285; 96374; J1885

== ENCOUNTER 2025-06-18 16:00 | Emergency (ER) | payer MEDICARE ==
[2025-06-18 16:27] VITALS: TEMP 97.8
--- NOTE | 2025-06-18 16:38 | ED ---
Arrhythmia/Palpitations HPI - General Source: patient Mode of arrival: EMS Limitations: no limitations <Debi Denton - Last Filed: 06/18/25 16:38> - General Source: patient, RN notes reviewed, old records reviewed Mode of arrival: EMS Limitations: no limitations - History of Present Illness MD Complaint: palpitations, irregular heart beat -: hour(s) Context: occurred during rest Associated Symptoms: denies other symptoms Treatments Prior to Arrival: other (0) <Milan Bauer - Last Filed: 06/18/25 21:55> - General Chief Complaint: Arrhythmia/Palpitations Stated Complaint: Anxiety Time Seen by Provider: 06/18/25 16:38 - History of Present Illness Initial Comments: Quick note: 74-year-old male here with chief complaint of palpitations. Patient does have an AICD. 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 Denies chest pain. Denies shortness of breath. (Debi Denton) This is a 74-year-old male for palpitations history of defibrillator, patient states he is having anxiety attack and at this point prefers discharge home (Milan Bauer) - Related Data Home Medications Medication Instructions Recorded Confirmed ALPRAZolam [Xanax] 0.125 - 0.25 mg PO TID PRN 01/05/21 04/08/25 Amiodarone [Cordarone] 100 mg PO HS 02/22/25 04/08/25 Eplerenone 25 mg PO DAILY 02/22/25 04/08/25 Ferrous Sulfate [Iron (65 MG 325 mg PO DAILY 02/22/25 04/08/25 Elemental)] Naftifine 2% Cream 1 applic TOPICAL DAILY 02/22/25 04/08/25 Pravastatin Sodium [Pravachol] 10 mg PO HS 02/22/25 04/08/25 atenoloL [Tenormin] 25 mg PO HS 04/08/25 04/08/25 atenoloL [Tenormin] 50 mg PO DAILY 04/08/25 04/08/25 Previous Rx's Medication Instructions Recorded Aspirin 325 mg PO DAILY #30 tab 02/23/25 Allergies Allergy/AdvReac Type Severity Reaction Status Date / Time No Known Allergies Allergy Verified 04/08/25 10:34 Review of Systems ROS Other: All systems not noted in ROS Statement are negative. <Debi Denton - Last Filed: 06/18/25 16:38> ROS Other: All systems not noted in ROS Statement are negative. <Milan Bauer - Last Filed: 06/18/25 21:55> ROS Statement: Those systems with pertinent positive or pertinent negative responses have been documented in the HPI. Past Medical History Past Medical History: Cancer, Hyperlipidemia, Hypertension Additional Past Medical History / Comment(s): See Dr Cuellar's H&P, Lifevest removed 12-01-2023,hx complete heart block,back/neck pain with herniated discs, bradycardia, basal cell carcinoma removed from nose in June 2020, pacemaker replacement 12-01-2023 History of Any Multi-Drug Resistant Organisms: None Reported Past Surgical History: Orthopedic Surgery, Pacemaker Additional Past Surgical History / Comment(s): left knee arthroscopy times 2,thumb surgery,eric cataracts, AICD pacemaker replacement 12-01-2023 Past Anesthesia/Blood Transfusion Reactions: No Reported Reaction Additional Past Anesthesia/Blood Transfusion Reaction / Comment(s): no hx blood transfusion Type of Cardiac Device: Biventricular Pacemaker, Permanent Pacemaker Device Placement Date:: 12-01-2023 Past Psychological History: Anxiety Smoking Status: Former smoker Past Alcohol Use History: Rare Past Drug Use History: None Reported - Past Family History Father Family Medical History: Cancer Additional Family Medical History / Comment(s): lung cancer 83 Mother Family Medical History: Cancer Additional Family Medical History / Comment(s): bladder cancer at age 71 Sister(s) Family Medical History: Cancer, Osteoarthritis (OA) Additional Family Medical History / Comment(s): leukemia Brother(s) Family Medical History: Myocardial Infarction (LA) Additional Family Medical History / Comment(s): at age 68 <Debi Denton - Last Filed: 06/18/25 16:38> General Exam Limitations: no limitations <Debi Denton - Last Filed: 06/18/25 16:38> General appearance: alert, in no apparent distress Head exam: Present: atraumatic, normocephalic, normal inspection Eye exam: Present: normal appearance, PERRL, EOMI. Absent: scleral icterus, conjunctival injection, periorbital swelling ENT exam: Present: normal exam, mucous membranes moist Neck exam: Present: normal inspection. Absent: tenderness, meningismus, lymphad enopathy Respiratory exam: Present: normal lung sounds bilaterally. Absent: respiratory distress, wheezes, rales, rhonchi, stridor Cardiovascular Exam: Present: regular rate, normal rhythm, normal heart sounds. Absent: systolic murmur, diastolic murmur, rubs, gallop, clicks GI/Abdominal exam: Present: soft, normal bowel sounds. Absent: distended, tenderness, guarding, rebound, rigid Extremities exam: Present: normal inspection, full ROM, normal capillary refill. Absent: tenderness, pedal edema, joint swelling, calf tenderness Back exam: Present: normal inspection Neurological exam: Present: alert, oriented X3, CN II-XII intact Psychiatric exam: Present: normal affect, normal mood Skin exam: Present: warm, dry, intact, normal color. Absent: rash <Milan Bauer - Last Filed: 06/18/25 21:55> - General Exam Comments Initial Comments: Visual Physical Exam Vital signs reviewed General: Well-appearing, nontoxic, no acute distress. Head: Normocephalic, atraumatic Eyes: PERRLA, EOMI ENT: Airway patent Chest: Nonlabored breathing Skin: No visual rash, normal skin tone Neuro: Alert and oriented 3 Musculoskeletal: No gross abnormalities (Debi Denton) Course <Milan Bauer - Last Filed: 06/18/25 21:55> Vital Signs 06/18/25 06/18/25 16:24 19:34 Temperature 97.8 F Pulse Rate 70 62 Respiratory 20 18 Rate Blood Pressure 126/71 134/89 O2 Sat by Pulse 98 99 Oximetry - Reevaluation(s) Reevaluation #1: 06/18/25 21:54 Medical reviewed (Milan Bauer) Reevaluation #2: 06/18/25 21:54 Patient symptoms resolved and (Milan Bauer) Reevaluation #3: 06/18/25 21:54 Patient informed of results and questions answered (Milan Bauer) Reevaluation #4: Was pt. sent in by a medical professional or institution (Dr., PA, CUSTOM MILLER, urgent care, hospital, or shelter...) When possible be specific @ -no Did you speak to anyone other than the patient for history (EMS, parent, family, police, friend...)? What history was obtained from this source @ -no Did you review nursing and triage notes (agree or disagree)? Why? @ -agree Are old charts reviewed (outside hosp., previous admission, EMS record, old EKG, old radiological studies, urgent care reports/EKG's, shelter records)? Report findings @ -yes Differential Diagnosis (chest pain, altered mental status, abdominal pain women, abdominal pain men, vaginal bleeding, weakness, fever, dyspnea, syncope, headache, dizziness, GI bleed, back pain, seizure, CVA, palpatations, mental health, musculoskeletal)? @ -prior EKG interpreted by me (3pts min.). @ -yes X-rays interpreted by me (1pt min.). @ -yes negative for acute disease CT interpreted by me (1pt min.). @ -no U/S interpreted by me (1pt. min.). @ -no What testing was considered but not performed or refused? (CT, X-rays, U/S, labs)? Why? @ -none What meds were considered but not given or refused? Why? @ -none Did you discuss the management of the patient with other professionals (professionals i.e. LUTHER Kumar, CUSTOM MILLER, lab, RT, psych nurse, social services technician, wheat and oats flake miller, teacher, strike warfare/missile systems officer, case investigator)? Give summary @ -no Was smoking cessation discussed for >3mins.? @ -no Was critical care preformed (if so, how long)? @ -no Were there social determinants of health that impacted care today? How? (Homelessness, low income, unemployed, alcoholism, drug addiction, transportation, low edu. Level, literacy, decrease access to med. care, assisted, rehab)? @ -none Was there de-escalation of care discussed even if they declined (Discuss DNR or withdrawal of care, Hospice)? DNR status @ -no What co-morbidities impacted this encounter? (DM, HTN, Smoking, COPD, CAD, Cancer, CVA, ARF, Chemo, Hep., AIDS, mental health diagnosis, sleep apnea, morbid obesity)? @ -none Was patient admitted / discharged? Hospital course, mention meds given and route, prescriptions, significant lab abnormalities, going to OR and other pertinent info. @ - Undiagnosed new problem with uncertain prognosis? @ -no Drug Therapy requiring intensive monitoring for toxicity (Heparin, Nitro, Insulin, Cardizem)? @ -no Were any procedures done? @ -no Diagnosis/symptom? @ - Acute, or Chronic, or Acute on Chronic? @ -Acute Uncomplicated (without systemic symptoms) or Complicated (systemic symptoms)? @ -Complicated Side effects of treatment? @ -no Exacerbation, Progression, or Severe Exacerbation? @ -exacerbation Poses a threat to life or bodily function? How? (Chest pain, USA, LA, pneumonia, PE, COPD, DKA, ARF, appy, cholecystitis, CVA, Diverticulitis, Homicidal, Suicidal, threat to staff... and all critical care pts) @ -yes (Milan Bauer) Reevaluation #5: Differential Palpitations Ventricular arrhythmias, atrial arrhythmias, myocardial infarction, anemia, t hyrotoxicosis, electrolyte imbalance, hypokalemia, pulmonary embolism, pulmonary disease, drugs, alcohol, anxiety, stress.... This is not meant to be an all-inclusive list. (Milan Bauer) Medical Decision Making <Debi Denton - Last Filed: 06/18/25 16:38> - Lab Data Result diagrams: 06/18/25 16:37 06/18/25 16:37 <Milan Bauer - Last Filed: 06/18/25 21:55> - Medical Decision Making I performed the quick note portion of this visit, electronically signed Debi Denton PA-C (Debi Denton) 74 male to ER for evaluation patient coming in for evaluation of palpitations chest pain and anxiety, symptoms resolved patient feels good for discharge home (Milan Bauer) - Lab Data Lab Results 06/18/25 06/18/25 06/18/25 Range/Units 16:37 16:37 16:37 WBC 6.29 (4.50-10.00) 10*3/uL RBC 4.13 L (4.40-5.60) 10*6/uL Hgb 14.3 (13.0-17.0) g/dL Hct 40.2 (39.6-50.0) % MCV 97.3 H (80.0-97.0) fL MCH 34.6 H (27.0-32.0) pg MCHC 35.6 (32.0-37.0) g/dL Plt Count 154 (140-440) 10*3/uL MPV 9.5 (9.5-12.2) fL Immature Gran % (Auto) 0.3 % Neutrophils % 79.1 % Lymphocytes % 10.0 % Monocytes % 9.9 % Eosinophils % 0.5 % Basophils % 0.2 % Immature Gran # 0.02 (0.00-0.04) 10*3/uL Neutrophils # 4.98 (1.80-7.70) 10*3/uL Lymphocytes # 0.63 L (0.90-5.00) 10*3/uL Monocytes # 0.62 (0.20-1.00) 10*3/uL Eosinophils # 0.03 L (0.04-0.35) 10*3/uL Basophils # 0.01 (0.00-0.10) 10*3/uL PT 11.0 (10.0-12.5) sec INR 1.0 (<1.2) APTT 26.5 (22.0-30.0) sec Sodium 131 L (137-145) mmol/L Potassium 4.1 (3.5-5.1) mmol/L Chloride 98 (98-107) mmol/L Carbon Dioxide 24 (22-30) mmol/L Anion Gap 9 mmol/L BUN 23 H (9-20) mg/dL Creatinine 0.62 L (0.66-1.25) mg/dL Est GFR (CKD-EPI)AfAm >90 (>60 ml/min/1.73 sqM) Est GFR (CKD-EPI)NonAf >90 (>60 ml/min/1.73 sqM) Glucose 96 (74-99) mg/dL Calcium 8.9 (8.4-10.2) mg/dL Magnesium 2.1 (1.6-2.3) mg/dL Total Bilirubin 0.5 (0.2-1.3) mg/dL AST 25 (17-59) U/L ALT 21 (4-49) U/L Alkaline Phosphatase 50 (38-126) U/L Troponin I (0.000-0.034) ng/mL Total Protein 6.3 (6.3-8.2) g/dL Albumin 4.2 (3.5-5.0) g/dL TSH 0.714 (0.465-4.680) mIU/L 06/18/25 Range/Units 16:37 WBC (4.50-10.00) 10*3/uL RBC (4.40-5.60) 10*6/uL Hgb (13.0-17.0) g/dL Hct (39.6-50.0) % MCV (80.0-97.0) fL MCH (27.0-32.0) pg MCHC (32.0-37.0) g/dL Plt Count (140-440) 10*3/uL MPV (9.5-12.2) fL Immature Gran % (Auto) % Neutrophils % % Lymphocytes % % Monocytes % % Eosinophils % % Basophils % % Immature Gran # (0.00-0.04) 10*3/uL Neutrophils # (1.80-7.70) 10*3/uL Lymphocytes # (0.90-5.00) 10*3/uL Monocytes # (0.20-1.00) 10*3/uL Eosinophils # (0.04-0.35) 10*3/uL Basophils # (0.00-0.10) 10*3/uL PT (10.0-12.5) sec INR (<1.2) APTT (22.0-30.0) sec Sodium (137-145) mmol/L Potassium (3.5-5.1) mmol/L Chloride (98-107) mmol/L Carbon Dioxide (22-30) mmol/L Anion Gap mmol/L BUN (9-20) mg/dL Creatinine (0.66-1.25) mg/dL Est GFR (CKD-EPI)AfAm (>60 ml/min/1.73 sqM) Est GFR (CKD-EPI)NonAf (>60 ml/min/1.73 sqM) Glucose (74-99) mg/dL Calcium (8.4-10.2) mg/dL Magnesium (1.6-2.3) mg/dL Total Bilirubin (0.2-1.3) mg/dL AST (17-59) U/L ALT (4-49) U/L Alkaline Phosphatase (38-126) U/L Troponin I <0.012 (0.000-0.034) ng/mL Total Protein (6.3-8.2) g/dL Albumin (3.5-5.0) g/dL TSH (0.465-4.680) mIU/L Disposition <Debi Denton - Last Filed: 06/18/25 16:38> Is patient prescribed a controlled substance at d/c from ED?: No Time of Disposition: 18:45 <Milan Bauer - Last Filed: 06/18/25 21:55> Clinical Impression: Palpitations Disposition: HOME SELF-CARE Condition: Good Instructions (If sedation given, give patient instructions): Heart Palpitations (ED) Referrals: Nta Gaffney DO [Primary Care Provider] - 1-2 days
[2025-06-18 17:01] LABS: Basophils # (A) 0.01 10*3/uL (0.00-0.10); Basophils % (A) 0.2 %; Eosinophils # (A) 0.03 10*3/uL (0.04-0.35); Eosinophils % (A) 0.5 %; HCT 40.2 % (39.6-50.0); HGB 14.3 g/dL (13.0-17.0); Lymphocytes # (A) 0.63 10*3/uL (0.90-5.00); Lymphocytes % (A) 10.0 %; MCH 34.6 pg (27.0-32.0); MCHC 35.6 g/dL (32.0-37.0); MCV 97.3 fL (80.0-97.0); Monocytes # (A) 0.62 10*3/uL (0.20-1.00); Monocytes % (A) 9.9 %; Neutrophils # (A) 4.98 10*3/uL (1.80-7.70); Neutrophils % (A) 79.1 %; Platelet Count 154 10*3/uL (140-440); RBC 4.13 10*6/uL (4.40-5.60); RDW 11.9 % (11.5-14.5); WBC 6.29 10*3/uL (4.50-10.00)
--- NOTE | 2025-06-18 17:07 | XR ---
EXAMINATION TYPE: XR chest 2V DATE OF EXAM: 06/18/2025 4:47 PM COMPARISON: Chest radiographs from 04/08/2025. CLINICAL INDICATION: Male, 74 years old with history of dysrhythmia; [facility] TECHNIQUE: XR chest 2V Frontal and lateral views of the chest. FINDINGS: Lungs/Pleura: There is no evidence of pleural effusion, focal consolidation, or pneumothorax. Pulmonary vascularity: Unremarkable. Heart/mediastinum: Cardiomediastinal silhouette is unremarkable. 4 lead cardiac conduction device ove rlying the heart. Musculoskeletal: No acute osseous pathology. Other findings: None IMPRESSION: No acute cardiopulmonary disease/process. [facility], , 06/18/2025 5:05 PM
[2025-06-18 17:31] LABS: INR 1.0 (<1.2); Partial Thromboplastin Time 26.5 sec (22.0-30.0); Prothrombin Time 11.0 sec (10.0-12.5)
[2025-06-18 17:51] LABS: ALT 21 U/L (4-49); AST 25 U/L (17-59); African American GFR (CKD) >90 (>60 ml/min/1.73 sqM); Albumin 4.2 g/dL (3.5-5.0); Alkaline Phosphatase 50 U/L (38-126); Anion Gap 9 mmol/L; Blood Urea Nitrogen 23 mg/dL (9-20); Calcium 8.9 mg/dL (8.4-10.2); Carbon Dioxide 24 mmol/L (22-30); Chloride 98 mmol/L (98-107); Glucose 96 mg/dL (74-99); Magnesium 2.1 mg/dL (1.6-2.3); Non-African American GFR(CKD) >90 (>60 ml/min/1.73 sqM); Potassium 4.1 mmol/L (3.5-5.1); Sodium 131 mmol/L (137-145); Total Protein 6.3 g/dL (6.3-8.2)
[2025-06-18 19:35] VITALS: BP 134/89; PULSE 62; RESP 18
== END 2025-06-18 19:35 | disposition home or self-care (01) ==
LOC: EC 16:00
DX: R00.2 Palpitations (principal); Z87.891 Personal history of nicotine dependence
CPT/HCPCS: 36415; 71046; 80053; 83735; 84443; 84484; 85025; 85610; 85730; 93005; 99285